=== PATIENT | male | born 1930 | race Caucasian/White ===

== ENCOUNTER 2018-06-06 17:55 | Inpatient (IN) | payer MEDICARE, OTHER, SELFPAY ==
[~2018-06-06] VITALS: Ht 180.3 cm; Wt 76.0 kg
[2018-06-06] MEDS ORDERED: ATOR1TAB19 PO (18:28)
[2018-06-06] MEDS ORDERED: SYMB16INH INH (18:28)
[2018-06-06] MEDS ORDERED: CEPH500C PO (18:28)
[2018-06-06] MEDS ORDERED: CEPH250T PO (18:28)
[2018-06-06] MEDS ORDERED: ASPI1TAB PO (18:28)
[2018-06-06] MEDS ORDERED: MELO15TA28 PO (18:39)
[2018-06-06] MEDS ORDERED: METO1TAB7 PO (18:39)
[2018-06-06] MEDS ORDERED: PRED5TA PO (18:39)
[2018-06-06] MEDS ORDERED: SAVA1TAB5 PO (18:39)
[2018-06-06] MEDS ORDERED: FURO20TA2 PO (18:39)
[2018-06-06] MEDS ORDERED: FLOM0.4C39 PO (18:39)
[2018-06-06] MEDS ORDERED: SPIR1CAP INH (18:39)
[2018-06-06] MEDS ORDERED: METH2.5T48 PO (18:39)
[2018-06-06] MEDS ORDERED: OMEP20CA3 PO (18:39)
[2018-06-06] MEDS ORDERED: LEVO500T3 PO (18:39)
[2018-06-06] MEDS ORDERED: LISI-538 PO (18:39)
[2018-06-06] MEDS ORDERED: NUTRLIQ PO (18:39)
[2018-06-06] MEDS ORDERED: HYDR200T3 PO (18:39)
[2018-06-06] MEDS ORDERED: GUAI20TA PO (18:39)
[2018-06-06] MEDS ORDERED: LORA-243 PO (18:39)
[2018-06-06 19:46] LABS: BASO # 0.1 10^3/uL (0.0-0.2); BASO % 0.9 % (0.0-1.0); EOS # 0.3 10^3/uL (0.0-0.50); EOS % 3.3 % (0.0-3.0); HEMOGLOBIN 9.3 g/dl (13.5-17.5); LYMPH # 1.2 10^3/uL (1.5-4.5); LYMPH % 12.4 % (24.0-44.0); MEAN CORPUSCULAR HEMOGLOBIN 28.8 pg (27.0-33.0); MEAN CORPUSCULAR HGB CONC 32.1 g/dl (32.0-36.5); MEAN CORPUSCULAR VOLUME 89.8 fl (80.0-96.0); MONO # 1.1 10^3/uL (0.0-0.8); MONO % 11.2 % (0.0-5.0); NEUTROPHILS # 6.9 10^3/uL (1.8-7.7); NEUTROPHILS % 70.5 % (36.0-66.0); PLATELET COUNT, AUTOMATED 204 10^3/uL (150-450); RED BLOOD COUNT 3.23 10^6/uL (4.30-6.10); WHITE BLOOD COUNT 9.8 10^3/uL (4.0-10.0)
[2018-06-06 20:00] LABS: BLOOD UREA NITROGEN 28 MG/DL (7-18); CARBON DIOXIDE LEVEL 26 MEQ/L (21-32); CHLORIDE LEVEL 107 MEQ/L (98-107); CK-MB VALUE MASS < 1.0 NG/ML (<3.6); CPK CREATINE PHOSPHOKINASE 22 U/L (39-308); CREATININE FOR GFR 1.36 MG/DL (0.70-1.30); FREE T4 1.16 NG/DL (0.76-1.46); GLOMERULAR FILTRATION RATE 52.8 (>35); GLUCOSE, FASTING 116 MG/DL (70-100); MAGNESIUM LEVEL 1.6 MG/DL (1.8-2.4); MB/CK RELATIVE INDEX 4.55 (< OR =4); POTASSIUM SERUM 3.7 MEQ/L (3.5-5.1); SODIUM LEVEL 141 MEQ/L (136-145); TROPONIN I 0.02 NG/ML (< 0.10)
--- NOTE | 2018-06-06 20:11 | REP ---
Chest two views HISTORY: Syncope Comparison: None Patchy density is present in the right lower lobe consistent with atelectasis or infiltrate. Linear densities are present in the left lower lobe consistent with scarring. The heart is normal in size. The pulmonary vasculature is normal in appearance. The bony structure is intact. IMPRESSION: Right lower lobe atelectasis or infiltrate. Electronically Signed by Jaren Burgess MD 06/06/2018 08:03 P
[2018-06-06] MEDS ORDERED: PIPERACILLIN/TAZOBACTAM SOD 3.375 GM in D5W MINI-BAG PLUS 50 ML IV ONE (20:30)
[2018-06-06] MEDS ORDERED: PANTOPRAZOLE 40MG INJ (PROTONIX) (C9113) IV ONE (20:30)
[2018-06-06] MEDS ORDERED: NS 1,000 ML IV ONE (20:30)
[2018-06-06] MEDS ORDERED: VANCOMYCIN HCL 1,000 MG, VIAL MATE ADAPTER 1 EACH in D5W 250 ML IV ONE (20:30)
[2018-06-06 20:32] LABS: INR 1.93; PARTIAL THROMBOPLASTIN TIME 36.2 SECONDS (25.4-37.6); PROTHROMBIN TIME 22.4 SECONDS (12.1-14.4)
[2018-06-06] MEDS ORDERED: DOCU100C16 PO (21:17)
[2018-06-06] MEDS ORDERED: VENTAER INH (21:17)
[2018-06-06] MEDS ORDERED: ENSULIQ9 PO (21:17)
[2018-06-06] MEDS ORDERED: ASPI81TAEC PO (21:17)
[2018-06-06] MEDS ORDERED: guaiFENesin 200 MG TAB PO PRN (21:45)
[2018-06-06] MEDS ORDERED: PILL CRUSHER/CUTTER 1 EACH XX PRN (22:00)
[2018-06-06] MEDS: NS 1,000 ML IV SCH (22:31)
--- NOTE | 2018-06-06 23:43 | HPEPDOC ---
[facility] Medical History & Physical Date of Admission Jun 06, 2018 Other Provider Dictating/admitting: Dr. Askew Attending Physician: MARIANO INMAN MD History and Physical CHIEF COMPLAINT: Near syncope/fall 1 day HISTORY OF PRESENT ILLNESS: Patient is an 88-year-old man with history significant for hypertension, hyperlipidemia, COPD, GERD, rheumatoid arthritis on methotrexate and Plaquenil, recently diagnosed PE on anticoagulation. Patient reports being in his usual state of health until sometime today, according to him, he felt dizzy and he noticed that while he was walking with his cane, he fell. He denied any loss of consciousness. He was able to pick himself up, not activated EMS. Patient follows [facility] in [place]. He was recently diagnosed off for pneumonia and finished his last dose of antibiotics yesterday. He also reports that at that admission a week ago in [place]. He was diagnosed with PE and started on anticoagulation. He denies any fever or chills. No chest pain or palpitations. No shortness of breath. No cough. He denies any change in his bowel or urinary habits. He denies noticing any dark tarry stools. Patient was evaluated in the emergency room with guaiac positive stool. Hemoglobin 9.3 but no baseline to compare with. Hospitalist was called for further evaluation and possibility of admitting patient. PAST MEDICAL HISTORY: Per HPI PAST SURGICAL HISTORY: SOCIAL HISTORY: This with girlfriend. Denies smoking, illicit drug use or alcohol use. FAMILY HISTORY: Father: from complications of lung cancer Mother: from old age at age 100 ALLERGIES: Please see below. REVIEW OF SYSTEMS: 12 point review of systems negative other than that described in the body of HPI. HOME MEDICATIONS: Please see below. PHYSICAL EXAMINATION: GENERAL APPEARANCE: Elderly man, lying calmly in bed, not in any apparent distress. He is not pale, anicteric and afebrile HEENT: Atraumatic. Neck: Supple. LUNGS: Clear to auscultation bilaterally. CARDIOVASCULAR: S1 and 2 heard, no murmurs, rubs or gallops. ABDOMEN: Obese, soft, not tender, not distended. Bowel sounds normoactive. MUSCULOSKELETAL: Apparently within normal limits. EXTREMITIES: No pedal edema, 2+ bilateral pedal pulses noted. NEUROLOGICAL: Awake, alert, oriented 3. PSYCHIATRIC: Normal affect LABORATORY DATA: See below. IMAGING: Chest x-ray: Right lower lobe atelectasis or infiltrate. EKG: Normal sinus rhythm. MICROBIOLOGY: Please see below. ASSESSMENT: 88-year-old man with above-mentioned comorbid history comes in with near syncope and fall, found on evaluation with guaiac positive stool and hemoglobin 9.3 with no baseline. DIAGNOSES: 1. Near syncope. 2. GI bleed . PLAN: 1. I will admit patient to the PCU under care of Dr. Inman 2. Near syncope. Patient evaluated as orthostatic. Will continue IV normal saline to run at 100 mils per hour. Reevaluate patient in the morning. Hold BP medications for now. If systolic BP is less than 110 mmHg. 3. GI bleed. Continue hematocrit monitoring every 12 hours, GI consult placed, patient made nothing by mouth for now. Anticoagulation held. 4. IV pantoprazole 40 mg every 12 hours. 5. DVT prophylaxis, TEDs. 6. Further management to be per patient's clinical course. 7. Anticipate resumption of outpatient medications as soon as reconciled and as soon as patient can tolerate by mouth. 8. Will hold BP medications if systolic blood pressure is less than 110 mmHg. . Vital Signs Vital Signs Date Time Temp Pulse Resp B/P (MAP) Pulse Ox O2 Delivery O2 Flow Rate FiO2 06/06/18 21:30 67 97 06/06/18 21:15 18 06/06/18 20:10 91/50 (64) 86/41 (56) 110/51 (70) 06/06/18 18:11 Room Air 06/06/18 17:59 97.5 4.0 Laboratory Data Labs 24H Laboratory Tests 2 06/06/18 18:12: Immature Granulocyte % (Auto) 1.7, White Blood Count 9.8, Red Blood Count 3.23L, Hemoglobin 9.3L, Hematocrit 29.0L, Mean Corpuscular Volume 89.8, Mean Corpuscular Hemoglobin 28.8, Mean Corpuscular Hemoglobin Concent 32.1, Red Cell Distribution Width 15.5H, Platelet Count 204, Neutrophils (%) (Auto) 70.5H, Lymphocytes (%) (Auto) 12.4L, Monocytes (%) (Auto) 11.2H, Eosinophils (%) (Auto) 3.3H, Basophils (%) (Auto) 0.9, Neutrophils # (Auto) 6.9, Lymphocytes # (Auto) 1.2L, Monocytes # (Auto) 1.1H, Eosinophils # (Auto) 0.3, Basophils # (Auto) 0.1, Nucleated Red Blood Cells % (auto) 0.0, Anion Gap 8, Glomerular Filtration Rate 52.8, Blood Urea Nitrogen 28H, Creatinine 1.36H, Sodium Level 141, Potassium Level 3.7, Chloride Level 107, Carbon Dioxide Level 26, Calcium Level 7.0L, Total Creatine Kinase 22L, Magnesium Level 1.6L, Creatine Kinase MB < 1.0, Creatine Kinase MB Relative Index 4.55H, Troponin I 0.02, Thyroid Stimulating Hormone (TSH) 3.300, Free Thyroxine 1.16 06/06/18 20:17: Prothrombin Time 22.4H, Prothromb Time International Ratio 1.93, Activated Partial Thromboplast Time 36.2 CBC/BMP Laboratory Tests 06/06/18 18:12 Red Blood Count 3.23 L, Mean Corpuscular Volume 89.8, Mean Corpuscular Hemoglobin 28.8, Mean Corpuscular Hemoglobin Concent 32.1, Red Cell Distribution Width 15.5 H, Neutrophils (%) (Auto) 70.5 H, Lymphocytes (%) (Auto) 12.4 L, Monocytes (%) (Auto) 11.2 H, Eosinophils (%) (Auto) 3.3 H, Basophils (%) (Auto) 0.9, Neutrophils # (Auto) 6.9, Lymphocytes # (Auto) 1.2 L, Monocytes # (Auto) 1.1 H, Eosinophils # (Auto) 0.3, Basophils # (Auto) 0.1, Calcium Level 7.0 L, Total Creatine Kinase 22 L Home Medications Scheduled (Ensure Plus) 1 Liq Liq, 1 LIQ PO BID Aspirin (Aspirin EC) 81 Mg Tabec, 81 MG PO DAILY Atorvastatin Calcium (Atorvastatin Calcium) 10 Mg Tab, 5 MG PO QHS Budesonide/Formoterol (Symbicort 160-4.5 Mcg/Act) 60 Puff/Inhaler Aers, 2 PUFF INH BID Docusate Sodium (Docusate Sodium) 100 Mg Cap, 100 MG PO BID Edoxaban Tosylate Monohydrate (Savaysa) 60 Mg Tab, 60 MG PO DAILY Furosemide (Furosemide) 20 Mg Tab, 20 MG PO DAILY Hydroxychloroquine Sulfate (Hydroxychloroquine Sulfat) 200 Mg Tab, 200 MG PO BID Lisinopril (Lisinopril) 20 Mg Tab, 10 MG PO DAILY Loratadine (Loratadine) 10 Mg Tab, 10 MG PO DAILY Meloxicam (Meloxicam) 15 Mg Tab, 15 MG PO DAILY Methotrexate (Methotrexate) 2.5 Mg Tab, 12.5 MG PO 1XWK TAKES ON SATURDAYS AT DINNERTIME Metoprolol Succinate (Metoprolol Succinate ER) 50 Mg Tab, 25 MG PO DAILY Omeprazole (Omeprazole) 20 Mg Cap, 20 MG PO DAILY Prednisone (Prednisone) 5 Mg Tab, 5 MG PO DAILY Tamsulosin Hydrochloride (Flomax) 0.4 Mg Cap, 0.4 MG PO QHS Tiotropium Larose Monohydrate (Spiriva Handihaler) 18 Mcg Cap, 18 MCG INH DAILY Scheduled PRN Albuterol Sulfate (Ventolin Hfa) 108 Mcg/Act Aer, 2 PUFFS INH Q4H PRN for SHORTNESS OF BREATH Guaifenesin (Guaifenesin) 200 Mg Tab, 200 MG PO Q4H PRN for COUGH Allergies Coded Allergies: No Known Allergies (Unverified , 06/06/18) VICKI ASKEW MD Jun 06, 2018 23:12
[2018-06-07] VITALS (8 sets, daily range): BP systolic 105–168; BP diastolic 56–81
[2018-06-07 05:55] LABS: HEMATOCRIT 28.3 % (42.0-52.0); HEMOGLOBIN 9.1 g/dl (13.5-17.5)
[2018-06-07 06:19] LABS: BLOOD UREA NITROGEN 22 MG/DL (7-18); CALCIUM LEVEL 7.3 MG/DL (8.8-10.2); CARBON DIOXIDE LEVEL 24 MEQ/L (21-32); CHLORIDE LEVEL 109 MEQ/L (98-107); CREATININE FOR GFR 0.95 MG/DL (0.70-1.30); GLOMERULAR FILTRATION RATE > 60.0 (>35); GLUCOSE, FASTING 78 MG/DL (70-100); POTASSIUM SERUM 3.9 MEQ/L (3.5-5.1); SODIUM LEVEL 141 MEQ/L (136-145)
[2018-06-07] MEDS: NS 1,000 ML IV SCH ×2 (07:45→17:14)
[2018-06-07] MEDS: IPRATROPIUM 0.5MG/ALBUTEROL 2.5MG INH SOL UD 3ML (DUONEB)(J7620) NEB PRN (08:07)
[2018-06-07] MEDS: SYMBICORT 160/4.5MCG INHALER 6GM INH SCH ×2 (08:07→20:43)
[2018-06-07] MEDS: LISINOPRIL 20 MG TAB PO SCH (09:21)
[2018-06-07] MEDS: HYDROXYCHLOROQUINE 200 MG TAB PO SCH ×2 (09:22→20:03)
[2018-06-07] MEDS: ASPIRIN 81 MG ENTERIC TAB PO SCH (09:22)
[2018-06-07] MEDS: METOPROLOL SUCC (TopROL XL) 50MG **XL** TAB PO SCH (09:22)
[2018-06-07] MEDS: predniSONE 5 MG TAB PO SCH (09:23)
[2018-06-07] MEDS: PANTOPRAZOLE 40MG INJ (PROTONIX) (C9113) IV SCH ×2 (09:23→20:04)
[2018-06-07] MEDS: MELOXICAM (MOBIC) 7.5 MG TAB PO SCH (09:23)
[2018-06-07] MEDS: FUROSEMIDE 20 MG TAB PO SCH (09:23)
[2018-06-07] MEDS: LORATADINE 10 MG TAB PO SCH (09:23)
--- NOTE | 2018-06-07 12:25 | IPNPDOC ---
Subjective Date Seen The patient was seen on 06/07/18. Subjective Chief Complaint/HPI Patient seen and examined at the bedside. Denies any acute complaints of lightheadedness, dizziness, chest pain, palpitations this morning. Objective Physical Examination General Exam: Positive: Alert, Cooperative, No Acute Distress ENT Exam: Positive: Atraumatic, Mucous membr. moist/pink Neck Exam: Negative: JVD Chest Exam: Positive: Diminished Heart Exam: Positive: Rate Normal, Normal S1, Normal S2 Abdomen Exam: Positive: Soft; Negative: Tenderness Extremity Exam: Negative: Tenderness, Swelling Assessment /Plan Plan/VTE VTE Prophylaxis Ordered?: Yes Plan Near Syncopal Episode possibly 2/2 GI Bleed Patient's Hgb 9.3 with guaiac postive study in the ER Hgb has remained stable this AM Unknown baseline--order placed to obtain records from [facility] We will cont to monitor vitals, H&H GI consulted in the ER PT ordered for functional optimization We will cont to monitor History of Pulmonary Embolism AC held 2/2 possible GI Bleed We will cont to monitor at this time Hx of COPD on 4L of Oxygen at Baseline Cont supplemental oxygen, inhaler therapy, and prn nebs as ordered Hypertension Continue Lasix, lisinopril, metoprolol, Dyslipidemia Continue statin GERD Continue PPI Rheumatoid arthritis Continue plaquenil, prednisone BPH Continue Flomax DVT prophylaxis SCDs/TEDs VS, I&O, 24H, Fishbone Vital Signs/I&O Vital Signs Date Time Temp Pulse Resp B/P (MAP) Pulse Ox O2 Delivery O2 Flow Rate FiO2 06/07/18 11:46 99.7 86 18 168/69 (102) 95 Nasal Cannula 2.0 I&O- Last 24 Hours up to 6 AM 06/07/18 06:00 Intake Total 200 ml Output Total 400 ml Balance -200 ml Laboratory Data 24H LABS Laboratory Tests 2 06/06/18 18:12: Immature Granulocyte % (Auto) 1.7, White Blood Count 9.8, Red Blood Count 3.23L, Hemoglobin 9.3L, Hematocrit 29.0L, Mean Corpuscular Volume 89.8, Mean Corpuscular Hemoglobin 28.8, Mean Corpuscular Hemoglobin Concent 32.1, Red Cell Distribution Width 15.5H, Platelet Count 204, Neutrophils (%) (Auto) 70.5H, Lymphocytes (%) (Auto) 12.4L, Monocytes (%) (Auto) 11.2H, Eosinophils (%) (Auto) 3.3H, Basophils (%) (Auto) 0.9, Neutrophils # (Auto) 6.9, Lymphocytes # (Auto) 1.2L, Monocytes # (Auto) 1.1H, Eosinophils # (Auto) 0.3, Basophils # (Auto) 0.1, Nucleated Red Blood Cells % (auto) 0.0, Anion Gap 8, Glomerular Filtration Rate 52.8, Blood Urea Nitrogen 28H, Creatinine 1.36H, Sodium Level 141, Potassium Level 3.7, Chloride Level 107, Carbon Dioxide Level 26, Calcium Level 7.0L, Total Creatine Kinase 22L, Magnesium Level 1.6L, Creatine Kinase MB < 1.0, Creatine Kinase MB Relative Index 4.55H, Troponin I 0.02, Thyroid Stimulating Hormone (TSH) 3.300, Free Thyroxine 1.16 06/06/18 20:17: Prothrombin Time 22.4H, Prothromb Time International Ratio 1.93, Activated Partial Thromboplast Time 36.2 06/07/18 05:43: Anion Gap 8, Glomerular Filtration Rate > 60.0, Blood Urea Nitrogen 22H, Creatinine 0.95, Sodium Level 141, Potassium Level 3.9, Chloride Level 109H, Carbon Dioxide Level 24, Calcium Level 7.3L CBC/BMP Laboratory Tests 06/06/18 18:12 Red Blood Count 3.23 L, Mean Corpuscular Volume 89.8, Mean Corpuscular Hemoglobin 28.8, Mean Corpuscular Hemoglobin Concent 32.1, Red Cell Distribution Width 15.5 H, Neutrophils (%) (Auto) 70.5 H, Lymphocytes (%) (Auto) 12.4 L, Monocytes (%) (Auto) 11.2 H, Eosinophils (%) (Auto) 3.3 H, Basophils (%) (Auto) 0.9, Neutrophils # (Auto) 6.9, Lymphocytes # (Auto) 1.2 L, Monocytes # (Auto) 1.1 H, Eosinophils # (Auto) 0.3, Basophils # (Auto) 0.1, Calcium Level 7.0 L, Total Creatine Kinase 22 L 06/07/18 05:43 Calcium Level 7.3 L MARIANO INMAN MD Jun 07, 2018 12:25
[2018-06-07] MEDS ORDERED: GOLYTELY SOLN 4000 ML BTL PO ONE (16:15)
[2018-06-07] MEDS ORDERED: MOM 30ML SUSPENSION UDC PO ONE (16:15)
[2018-06-07] MEDS ORDERED: PHYTONADIONE 5 MG TAB PO ONE (16:30)
[2018-06-07 18:26] LABS: HEMATOCRIT 28.7 % (42.0-52.0); HEMOGLOBIN 9.3 g/dl (13.5-17.5)
--- NOTE | 2018-06-07 19:31 | ECHO ---
DATE OF PROCEDURE: 06/07/2018 REFERRING PHYSICIAN: Dr. Lucrecia Askew INDICATION: Syncope. Height 180 cm, weight 87 kg. DIMENSIONS: IVS: 1.2 LV: 5.4 LVPW: 1.2 LA: 2.6 Aorta: 3.4 IVC: 1.2 Mitral E wave velocity: 51 A wave: 69 E prime septal: 5.7 E prime lateral: 8.0 FINDINGS: The study is of difficult technical quality with rather limited visualization. The patient is in sinus rhythm. Left ventricle is of normal size. I estimate mild left ventricular systolic dysfunction with ejection fraction (EF) around 45-50%. This is based on very limited views. The right ventricle appears grossly normal. Both atria also appear grossly normal. Aortic valve is poorly seen. It is trileaflet. It is heavily calcified, and there is some restriction of leaflet mobility. Based on 2D imaging, I assume mild aortic stenosis. There are also mild degenerative abnormalities of mitral valve with mitral annular calcifications. Mobility of leaflets is preserved. Tricuspid valve appears normal. Pulmonic valve was not well seen. No significant pericardial effusion is noted. Inferior vena cava is of relatively small caliber indicative of normal or low central venous pressure. Aortic root is normal. Aortic arch and abdominal aorta were not well seen. Doppler interrogation of aortic valve reveals trace insufficiency and mild stenosis with mean gradient only 9 mmHg. There is also trace mitral and tricuspid insufficiency. Calculated pulmonary artery pressure is within normal limits. Mitral inflow pattern and tissue Doppler imaging of mitral annulus revealed grade 1 diastolic dysfunction. CONCLUSIONS: 1. Study is of difficult technical quality. 2. Normal left ventricular (LV) size with probably mild global LV systolic dysfunction and grade 1 diastolic dysfunction. Mild left ventricular hypertrophy (LVH). 3. Mild aortic stenosis. 4. Trace mitral and tricuspid insufficiency. 5. Normal central venous pressure and likely normal pulmonary artery pressure. COMMENT: Subacute bacterial endocarditis (SBE) prophylaxis is not recommended. It is not likely that aortic stenosis was the cause of the patient's syncopal event. [employer]
[2018-06-07] MEDS: ATORVASTATIN 10 MG TAB PO SCH (20:03)
[2018-06-07] MEDS: TAMSULOSIN 0.4 MG CAP PO SCH (20:03)
[2018-06-08] VITALS (15 sets, daily range): BP systolic 98–170; BP diastolic 47–77; O2SAT 92–97
[2018-06-08] MEDS ORDERED: FUROSEMIDE 20 MG/2 ML VIAL (J1940) IV ONE (04:15)
[2018-06-08] MEDS ORDERED: GOLYTELY SOLN 4000 ML BTL PO ONE (05:00)
[2018-06-08 05:24] LABS: INR 1.02; PROTHROMBIN TIME 13.5 SECONDS (12.1-14.4)
[2018-06-08] MEDS: SYMBICORT 160/4.5MCG INHALER 6GM INH SCH ×2 (07:42→20:14)
[2018-06-08] MEDS ORDERED: MAGNESIUM CITRATE 300 ML BTL PO ONE (08:45)
[2018-06-08 09:08] LABS: HEMATOCRIT 29.2 % (42.0-52.0); HEMOGLOBIN 9.6 g/dl (13.5-17.5); MEAN CORPUSCULAR HEMOGLOBIN 28.8 pg (27.0-33.0); MEAN CORPUSCULAR HGB CONC 32.9 g/dl (32.0-36.5); MEAN CORPUSCULAR VOLUME 87.7 fl (80.0-96.0); PLATELET COUNT, AUTOMATED 166 10^3/uL (150-450); RED BLOOD COUNT 3.33 10^6/uL (4.30-6.10); WHITE BLOOD COUNT 9.3 10^3/uL (4.0-10.0)
[2018-06-08] MEDS: PANTOPRAZOLE 40MG INJ (PROTONIX) (C9113) IV SCH ×2 (09:08→20:03)
[2018-06-08] MEDS: HYDROXYCHLOROQUINE 200 MG TAB PO SCH ×2 (09:08→20:03)
[2018-06-08] MEDS: ASPIRIN 81 MG ENTERIC TAB PO SCH (09:09)
[2018-06-08] MEDS: LORATADINE 10 MG TAB PO SCH (09:09)
[2018-06-08] MEDS: predniSONE 5 MG TAB PO SCH (09:09)
[2018-06-08] MEDS: FUROSEMIDE 20 MG TAB PO SCH (09:09)
[2018-06-08] MEDS: MELOXICAM (MOBIC) 7.5 MG TAB PO SCH (09:09)
[2018-06-08] MEDS: LISINOPRIL 20 MG TAB PO SCH (09:10)
[2018-06-08] MEDS: METOPROLOL SUCC (TopROL XL) 50MG **XL** TAB PO SCH (09:10)
[2018-06-08 09:24] LABS: BLOOD UREA NITROGEN 12 MG/DL (7-18); CALCIUM LEVEL 7.7 MG/DL (8.8-10.2); CARBON DIOXIDE LEVEL 25 MEQ/L (21-32); CHLORIDE LEVEL 103 MEQ/L (98-107); CREATININE FOR GFR 0.84 MG/DL (0.70-1.30); GLOMERULAR FILTRATION RATE > 60.0 (>35); GLUCOSE, FASTING 81 MG/DL (70-100); POTASSIUM SERUM 3.5 MEQ/L (3.5-5.1); SODIUM LEVEL 137 MEQ/L (136-145)
--- NOTE | 2018-06-08 09:59 | ECGEPIP ---
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
[2018-06-08 10:32] LABS: MAGNESIUM LEVEL 1.3 MG/DL (1.8-2.4)
[2018-06-08] MEDS: METOPROLOL 5 MG/5 ML VIAL IV SCH ×2 (10:39→10:49)
[2018-06-08] MEDS: KCL 10MEQ/100ML SWI (KRUN) 10 MEQ in APPROPRIATE DILUENT 1 EA IV SCH ×3 (10:52→18:43)
[2018-06-08] MEDS: MAG SULF 1GM/100ML (MAG RUN) 1 GM in APPROPRIATE DILUENT 1 EA IV SCH ×3 (11:58→17:35)
--- NOTE | 2018-06-08 13:42 | IPNPDOC ---
Subjective Date Seen The patient was seen on 06/08/18. Subjective Chief Complaint/HPI Patient seen and examined at the bedside. He was noted to be in atrial fibrillation with RVR this morning. Unclear whether this patient has a history of this, as there are no prior records available. We are awaiting records from [facility]. The patient denies any complaints of chest pain, palpitations at the bedside and is otherwise asymptomatic. He is scheduled for a colonoscopy with GI this afternoon. We will restart him on anticoagulation if there are no contraindications. The patient's hemoglobin has remained stable. Objective Physical Examination General Exam: Positive: Alert, Cooperative, No Acute Distress ENT Exam: Positive: Atraumatic, Mucous membr. moist/pink Neck Exam: Negative: JVD Chest Exam: Positive: Diminished Heart Exam: Positive: Tachycardic, Normal S1, Normal S2 Telemetry: Positive: Atrial fibrillation Abdomen Exam: Positive: Soft; Negative: Tenderness Extremity Exam: Negative: Tenderness, Swelling Assessment /Plan Plan/VTE VTE Prophylaxis Ordered?: Yes Plan Near Syncopal Episode possibly 2/2 GI Bleed Patient's Hgb 9.3 with guaiac positive study in the ER Hgb has remained stable this AM Unknown baseline--order placed to obtain records from [facility] We will cont to monitor vitals, H&H PT ordered for functional optimization GI on board for Colonoscopy this afternoon We will cont to monitor New-Onset Atrial Fibrillation? Unclear whether this patient has a history of this, as there are no prior records available. We are awaiting records from [facility]. The patient denies any complaints of chest pain, palpitations at the bedside and is otherwise asymptomatic. He is scheduled for a colonoscopy with GI this afternoon. We will restart him on anticoagulation if there are no contraindications. The patient's hemoglobin has remained stable. Cont Metoprolol History of Pulmonary Embolism AC held 2/2 possible GI Bleed We will cont to monitor at this time Hx of COPD on 4L of Oxygen at Baseline Cont supplemental oxygen, inhaler therapy, and prn nebs as ordered Hypertension Continue Lasix, lisinopril, metoprolol, Dyslipidemia Continue statin GERD Continue PPI Rheumatoid arthritis Continue plaquenil, prednisone BPH Continue Flomax DVT prophylaxis SCDs/TEDs VS, I&O, 24H, Fishbone Vital Signs/I&O Vital Signs Date Time Temp Pulse Resp B/P (MAP) Pulse Ox O2 Delivery O2 Flow Rate FiO2 06/08/18 12:00 98.6 97 17 119/52 (74) 94 Nasal Cannula 4.0 I&O- Last 24 Hours up to 6 AM 06/08/18 06:00 Intake Total 3122 ml Output Total 3200 ml Balance -78 ml Laboratory Data 24H LABS Laboratory Tests 2 06/08/18 04:26: Prothrombin Time 13.5, Prothromb Time International Ratio 1.02 06/08/18 08:52: Nucleated Red Blood Cells % (auto) 0.0, Anion Gap 9, Glomerular Filtration Rate > 60.0, Blood Urea Nitrogen 12, Creatinine 0.84, Sodium Level 137, Potassium L evel 3.5, Chloride Level 103, Carbon Dioxide Level 25, Calcium Level 7.7L, Magnesium Level 1.3L CBC/BMP Laboratory Tests 06/07/18 18:02 06/08/18 08:52 Red Blood Count 3.33 L, Mean Corpuscular Volume 87.7, Mean Corpuscular Hemoglobin 28.8, Mean Corpuscular Hemoglobin Concent 32.9, Red Cell Distribution Width 15.4 H, Calcium Level 7.7 L MARIANO INMAN MD Jun 08, 2018 13:42
[2018-06-08] MEDS ORDERED: PROPOFOL 200 MG/20 ML VIAL As Ordered ONE (14:46)
[2018-06-08] MEDS ORDERED: LIDOCAINE 2% INJ 100 MG/5 ML SDV (FOR ANES.) As Ordered ONE (14:46)
--- NOTE | 2018-06-08 14:59 | ROOR ---
Patient Name: Stanislaw Keene Procedure Date: 06/08/2018 2:38 PM Date of : 1930 Age: 88 Room: [facility] Gender: Male Note Status: Finalized Procedure: Upper GI endoscopy Indications: Occult blood in stool Providers: Trenton BURTON MD Referring MD: 2. Inpatient 2. Inpatient Requesting Provider: Medicines: Monitored Anesthesia Care Complications: No immediate complications. Procedure: Pre-Anesthesia Assessment: - The heart rate, respiratory rate, oxygen saturations, blood pressure, adequacy of pulmonary ventilation, and response to care were monitored throughout the procedure. The Endoscope was introduced through the mouth, and advanced to the third part of duodenum. The upper GI endoscopy was accomplished without difficulty. The patient tolerated the procedure well. Findings: A widely patent Schatzki ring was found at the gastroesophageal junction. This was biopsied with a cold forceps for histology. This was biopsied with a cold forceps for to fracture ring. The esophagus was otherwise normal. The stomach was normal. The examined duodenum was normal. Impression: - Widely patent Schatzki ring. Biopsied/fractured. - Normal esophagus. - Normal stomach. - Normal examined duodenum. Recommendation: - Perform a colonoscopy. Trenton Burton MD Trenton BURTON MD 06/08/2018 2:59:12 PM This report has been signed electronically. Number of Addenda: 0 Note Initiated On: 06/08/2018 2:38 PM Estimated Blood Loss: Estimated blood loss: none.
[2018-06-08] MEDS ORDERED: PHENYLephrine HCL 500 MCG/5 ML (100MCG/ML) SYRINGE (J2370) As Ordered ONE (15:01)
[2018-06-08] MEDS ORDERED: ePHEDrine SULFATE 25 MG/5 ML(5MG/ML) SYRINGE As Ordered ONE (15:05)
--- NOTE | 2018-06-08 15:18 | ROOR ---
Patient Name: Stanislaw Keene Procedure Date: 06/08/2018 2:39 PM Date of : 1930 Age: 88 Room: [facility] Gender: Male Note Status: Finalized Procedure: Colonoscopy Indications: Heme positive stool, Exclusion of colorectal cancer Providers: Trenton BURTON MD Referring MD: 2. Inpatient 2. Inpatient Requesting Provider: Medicines: Monitored Anesthesia Care Complications: No immediate complications. Procedure: Pre-Anesthesia Assessment: - The heart rate, respiratory rate, oxygen saturations, blood pressure, adequacy of pulmonary ventilation, and response to care were monitored throughout the procedure. The Colonoscope was introduced through the anus and advanced to 10 cm into the ileum. The colonoscopy was performed without difficulty. The patient tolerated the procedure well. The quality of the bowel preparation was good. Findings: The perianal and digital rectal examinations were normal. Mild sigmoid diverticulosis and moderate internal hemorrhoids. The entire examined colon appeared normal on direct and retroflexion views. The terminal ileum appeared normal. Impression: - Mild sigmoid diverticulosis and moderate internal hemorrhoids. - The entire examined colon is normal on direct and retroflexion views. - The examined portion of the ileum was normal. - No specimens collected. Recommendation: - Resume regular diet. - [facility]. Trenton Burton MD Trenton BURTON MD 06/08/2018 3:18:15 PM This report has been signed electronically. Number of Addenda: 0 Note Initiated On: 06/08/2018 2:39 PM Estimated Blood Loss: Estimated blood loss: none.
[2018-06-08] MEDS ORDERED: MAGNESIUM SULFATE 1 GM/100 ML D5W BAG (10MG/ML) (J3475) As Ordered ONE (17:32)
[2018-06-08] MEDS: FUROSEMIDE 20 MG/2 ML VIAL (J1940) IV ONE ×2 (18:22→18:51)
[2018-06-08] MEDS ORDERED: KCL 10MEQ IN STERILE WATER 100ML As Ordered ONE (18:42)
[2018-06-08] MEDS: TAMSULOSIN 0.4 MG CAP PO SCH (20:03)
[2018-06-08] MEDS: ATORVASTATIN 10 MG TAB PO SCH (20:03)
[2018-06-09] VITALS (23 sets, daily range): BP systolic 81–136; BP diastolic 41–61; O2SAT 89–99
[2018-06-09] MEDS: IPRATROPIUM 0.5MG/ALBUTEROL 2.5MG INH SOL UD 3ML (DUONEB)(J7620) NEB PRN ×2 (02:44→16:51)
[2018-06-09 05:26] LABS: HEMOGLOBIN 9.2 g/dl (13.5-17.5); MEAN CORPUSCULAR HEMOGLOBIN 28.3 pg (27.0-33.0); MEAN CORPUSCULAR HGB CONC 32.9 g/dl (32.0-36.5); MEAN CORPUSCULAR VOLUME 86.2 fl (80.0-96.0); PLATELET COUNT, AUTOMATED 152 10^3/uL (150-450); RED BLOOD COUNT 3.25 10^6/uL (4.30-6.10); WHITE BLOOD COUNT 11.5 10^3/uL (4.0-10.0)
[2018-06-09 05:46] LABS: BLOOD UREA NITROGEN 16 MG/DL (7-18); CALCIUM LEVEL 7.5 MG/DL (8.8-10.2); CARBON DIOXIDE LEVEL 24 MEQ/L (21-32); CHLORIDE LEVEL 106 MEQ/L (98-107); CREATININE FOR GFR 0.89 MG/DL (0.70-1.30); GLOMERULAR FILTRATION RATE > 60.0 (>35); GLUCOSE, FASTING 81 MG/DL (70-100); POTASSIUM SERUM 3.9 MEQ/L (3.5-5.1); SODIUM LEVEL 139 MEQ/L (136-145)
[2018-06-09] MEDS: ACETAMINOPHEN TAB 650MG DOSE (2X325MG) PO PRN (06:39)
[2018-06-09] MEDS: SYMBICORT 160/4.5MCG INHALER 6GM INH SCH ×2 (07:31→21:00)
[2018-06-09] MEDS: PANTOPRAZOLE 40MG INJ (PROTONIX) (C9113) IV SCH ×2 (08:25→21:30)
[2018-06-09] MEDS: LISINOPRIL 20 MG TAB PO SCH (08:26)
[2018-06-09] MEDS: METOPROLOL SUCC (TopROL XL) 50MG **XL** TAB PO SCH (08:26)
[2018-06-09] MEDS: HYDROXYCHLOROQUINE 200 MG TAB PO SCH ×2 (08:27→21:27)
[2018-06-09] MEDS: FUROSEMIDE 20 MG TAB PO SCH (08:27)
[2018-06-09] MEDS: ASPIRIN 81 MG ENTERIC TAB PO SCH (08:27)
[2018-06-09] MEDS: predniSONE 5 MG TAB PO SCH (08:27)
[2018-06-09] MEDS: MELOXICAM (MOBIC) 7.5 MG TAB PO SCH (08:27)
[2018-06-09] MEDS: LORATADINE 10 MG TAB PO SCH (08:27)
[2018-06-09] MEDS: cefTRIAXone SOD 1 GM in D5W MINI-BAG PLUS 50 ML IV SCH (10:31)
[2018-06-09] MEDS: ENOXAPARIN 80 MG/0.8 ML SYRINGE (J1650) SC SCH ×2 (10:31→21:30)
--- NOTE | 2018-06-09 12:13 | REP ---
Clinical: Shortness of breath. Technique: AP and lateral. Comparison: 06/06/2018. Findings: Diffuse chronic interstitial changes are again noted. The mediastinum and cardiac silhouette are normal. Blunting of the bilateral costophrenic angles and subtle basilar opacities consistent with bibasilar atelectasis and small pleural effusions (right greater than left). No pneumothorax. Skeletal structures demonstrate osteopenia and degenerative change. Impression: Small pleural effusions and basilar atelectasis (right greater than left). Electronically Signed by Asad Arora MD 06/09/2018 12:04 P
--- NOTE | 2018-06-09 15:46 | IPNPDOC ---
Subjective Date Seen The patient was seen on 06/09/18. Subjective Chief Complaint/HPI Patient seen and examined at bedside. Patient was noted to be febrile, with an increasing white blood cell count this morning. Upon examination, the patient was also more lethargic appearing but answering questions appropriately. Infectious workup revealed possible source of infection including urinary tract infection from chronic indwelling Sam catheter. The patient has been started on empiric antibiotic therapy. Urine culture pending. Otherwise, the patient remains hemodynamically stable and denies any acute complaints at this time. An ticoagulation has been restarted as the patient's EGD and colonoscopy did not reveal any acute findings of bleed, and the patient's hemoglobin has remained stable. Objective Physical Examination General Exam: Positive: Alert, Cooperative, No Acute Distress ENT Exam: Positive: Atraumatic, Mucous membr. moist/pink Neck Exam: Negative: JVD Chest Exam: Positive: Diminished Heart Exam: Positive: Rate Normal, Normal S1, Normal S2 Telemetry: Positive: Sinus Abdomen Exam: Positive: Soft; Negative: Tenderness Extremity Exam: Negative: Tenderness, Swelling Assessment /Plan Plan/VTE VTE Prophylaxis Ordered?: Yes Plan Urinary Tract Infection 2/2 Chronic Indwelling Sam Catheter Patient noted to be febrile, with increasing WBC this morning He was also noted to be more lethargic UA noted, Urine Culture pending We will empirically treat the patient with Rocephin We will cont to monitor the patient Near Syncopal Episode likely 2/2 above, less likely ?GI Bleed Patient's Hgb 9.3 in the ER on admission, with guaiac positive study in the ER Hgb has remained stable since admission GI consulted; EGD and Colonoscopy with no acute sources of bleeding ntoed We will restart AC at this time and continue to monitor H&H's New-Onset Atrial Fibrillation? Unclear whether this patient has a history of this, as there are no prior records available. We are awaiting records from [facility]. The patient denies any complaints of chest pain, palpitations at the bedside and is otherwise asymptomatic. Patient back in NSR this AM Cont Metoprolol, anticoagulation restarted with Lovenox (We do not have Edoxaban in formulary) History of Pulmonary Embolism On Lovenox SC BID Hx of COPD on 4L of Oxygen at Baseline Cont supplemental oxygen, inhaler therapy, and prn nebs as ordered Hypertension Continue Lasix, lisinopril, metoprolol, Dyslipidemia Continue statin GERD Continue PPI Rheumatoid arthritis Continue plaquenil, prednisone BPH Continue Flomax DVT prophylaxis Lovenox SC VS, I&O, 24H, Fishbone Vital Signs/I&O Vital Signs Date Time Temp Pulse Resp B/P (MAP) Pulse Ox O2 Delivery O2 Flow Rate FiO2 06/09/18 15:00 96 Nasal Cannula 4.0 06/09/18 12:00 97.6 92 18 103/49 (67) I&O- Last 24 Hours up to 6 AM 06/09/18 06:00 Intake Total 1160 ml Output Total 950 ml Balance 210 ml Laboratory Data 24H LABS Laboratory Tests 2 06/09/18 04:50: Nucleated Red Blood Cells % (auto) 0.0, Anion Gap 9, Glomerular Filtration Rate > 60.0, Blood Urea Nitrogen 16, Creatinine 0.89, Sodium Level 139, Potassium Level 3.9, Chloride Level 106, Carbon Dioxide Level 24, Calcium Level 7.5L, Magnesium Level 2.0 06/09/18 09:40: Urine Color YELLOW, Urine Appearance HAZY, Urine pH 5.0, Urine Specific [place] 1.014, Urine Protein 1+H, Urine Glucose (UA) NEGATIVE, Urine Ketones NEGATIVE, Urine Blood 2+H, Urine Nitrite NEGATIVE, Urine Bilirubin NEGATIVE, Urine Ur obilinogen 0.2, Urine Leukocyte Esterase TRACEH, Urine WBC (Auto) 52H, Urine RBC (Auto) TNTCH, Urine Hyaline Casts (Auto) 0, Urine Bacteria (Auto) NEGATIVE, Urine Squamous Epithelial Cells 0, Urine Mucus (Auto) SMALL, Urine Yeast-Like Cells (Auto) LARGEH, Urine Sperm (Auto) CBC/BMP Laboratory Tests 06/09/18 04:50 Red Blood Count 3.25 L, Mean Corpuscular Volume 86.2, Mean Corpuscular Hemoglobin 28.3, Mean Corpuscular Hemoglobin Concent 32.9, Red Cell Distribution Width 15.5 H, Calcium Level 7.5 L Microbiology Microbiology 06/09/18 Respiratory Virus Panel (PCR) ([facility]) - Final, Complete 06/09/18 Urine Culture, Received Pending MARIANO INMAN MD Jun 09, 2018 15:46
[2018-06-09] MEDS: TAMSULOSIN 0.4 MG CAP PO SCH (21:28)
[2018-06-09] MEDS: ATORVASTATIN 10 MG TAB PO SCH (21:29)
[2018-06-10] VITALS (19 sets, daily range): BP systolic 91–152; BP diastolic 44–62; O2SAT 92–97
[2018-06-10] MEDS: IPRATROPIUM 0.5MG/ALBUTEROL 2.5MG INH SOL UD 3ML (DUONEB)(J7620) NEB PRN ×2 (02:22→08:48)
[2018-06-10] MEDS: ACETAMINOPHEN TAB 650MG DOSE (2X325MG) PO PRN (04:18)
[2018-06-10 05:42] LABS: HEMATOCRIT 26.5 % (42.0-52.0); HEMOGLOBIN 8.6 g/dl (13.5-17.5); MEAN CORPUSCULAR HEMOGLOBIN 28.3 pg (27.0-33.0); MEAN CORPUSCULAR HGB CONC 32.5 g/dl (32.0-36.5); MEAN CORPUSCULAR VOLUME 87.2 fl (80.0-96.0); PLATELET COUNT, AUTOMATED 130 10^3/uL (150-450); RED BLOOD COUNT 3.04 10^6/uL (4.30-6.10); WHITE BLOOD COUNT 8.5 10^3/uL (4.0-10.0)
[2018-06-10 06:01] LABS: BLOOD UREA NITROGEN 18 MG/DL (7-18); CALCIUM LEVEL 7.6 MG/DL (8.8-10.2); CARBON DIOXIDE LEVEL 23 MEQ/L (21-32); CHLORIDE LEVEL 106 MEQ/L (98-107); CREATININE FOR GFR 1.07 MG/DL (0.70-1.30); GLOMERULAR FILTRATION RATE > 60.0 (>35); GLUCOSE, FASTING 88 MG/DL (70-100); MAGNESIUM LEVEL 1.8 MG/DL (1.8-2.4); POTASSIUM SERUM 3.7 MEQ/L (3.5-5.1); SODIUM LEVEL 137 MEQ/L (136-145)
[2018-06-10] MEDS: SYMBICORT 160/4.5MCG INHALER 6GM INH SCH ×2 (07:32→20:30)
[2018-06-10] MEDS: LISINOPRIL 20 MG TAB PO SCH (09:00)
[2018-06-10] MEDS: METOPROLOL SUCC (TopROL XL) 50MG **XL** TAB PO SCH (09:00)
[2018-06-10] MEDS ORDERED: SODIUM CHLORIDE 0.9% 1000ML IV ONE (09:00)
[2018-06-10] MEDS: ASPIRIN 81 MG ENTERIC TAB PO SCH (09:02)
[2018-06-10] MEDS: MELOXICAM (MOBIC) 7.5 MG TAB PO SCH (09:02)
[2018-06-10] MEDS: LORATADINE 10 MG TAB PO SCH (09:02)
[2018-06-10] MEDS: FUROSEMIDE 20 MG TAB PO SCH (09:02)
[2018-06-10] MEDS: PANTOPRAZOLE 40MG INJ (PROTONIX) (C9113) IV SCH ×2 (09:03→20:15)
[2018-06-10] MEDS: cefTRIAXone SOD 1 GM in D5W MINI-BAG PLUS 50 ML IV SCH (09:03)
[2018-06-10] MEDS: ENOXAPARIN 80 MG/0.8 ML SYRINGE (J1650) SC SCH ×2 (09:03→20:14)
[2018-06-10 09:11] LABS: C REACTIVE PROTEIN QUANTITATIV 6.03 MG/DL (0.00-0.30)
[2018-06-10] MEDS ORDERED: NS 500 ML IV SCH (10:00)
[2018-06-10] MEDS: METOPROLOL 5 MG/5 ML VIAL IV SCH ×3 (10:10→10:58)
[2018-06-10] MEDS: HYDROCORTISONE 100 MG/2 ML VIAL (J1720) IV SCH ×2 (10:38→18:39)
--- NOTE | 2018-06-10 12:33 | IPNPDOC ---
Subjective Date Seen The patient was seen on 06/10/18. Subjective Chief Complaint/HPI Patient seen and examined at the bedside. He was noted to be febrile this morning and borderline hypotensive. His B/P respond to IV fluid hydration. Otherwise, the patient states that he is feeling well and denies any acute complaints. He notes that he is feeling better each day, and notes that his strength/energy level is improved Objective Physical Examination General Exam: Positive: Alert, Cooperative, No Acute Distress ENT Exam: Positive: Atraumatic, Mucous membr. moist/pink Neck Exam: Negative: JVD Chest Exam: Positive: Diminished Heart Exam: Positive: Tachycardic, Normal S1, Normal S2 Telemetry: Positive: Atrial fibrillation Abdomen Exam: Positive: Soft; Negative: Tenderness Extremity Exam: Negative: Tenderness, Swelling Psych Exam: Positive: Oriented x 3 Assessment /Plan Plan/VTE VTE Prophylaxis Ordered?: Yes Plan Urinary Tract Infection 2/2 Chronic Indwelling Sam Catheter Patient with improvement of mentation this AM Borderline hypotensive this AM-->responded to fluid resuscitation UA noted, Urine Culture notable for yeast We will empirically treat the patient with Rocephin for possible UTI, with respiratory coverage as well We will cont to monitor the patient Near Syncopal Episode likely 2/2 above, less likely ?GI Bleed Patient's Hgb 9.3 in the ER on admission, with guaiac positive study in the ER Hgb has remained stable since admission GI consulted; EGD and Colonoscopy with no acute sources of bleeding ntoed AC restarted at this time and we will continue to monitor H&H's New-Onset Atrial Fibrillation? Unclear whether this patient has a history of this, as there are no prior records available. We are awaiting records from [facility]. The patient denies any complaints of chest pain, palpitations at the bedside and is otherwise asymptomatic. Patient has been fluctuating between NSR and A-Fib on the monitor Cont Metoprolol, anticoagulation restarted with Lovenox (We do not have Edoxaban in formulary) History of Pulmonary Embolism On Lovenox SC BID Hx of COPD on 4L of Oxygen at Baseline Cont supplemental oxygen, inhaler therapy, and prn nebs as ordered Hypertension Continue Lasix, lisinopril, metoprolol Dyslipidemia Continue statin GERD Continue PPI Rheumatoid arthritis Plaquenil held 2/2 Infection Prednisone on hold, patient started on Hydrocortisone 50mg q8h due to hypotension this AM BPH Continue Flomax DVT prophylaxis Lovenox SC VS, I&O, 24H, Heather Vital Signs/I&O Vital Signs Date Time Temp Pulse Resp B/P (MAP) Pulse Ox O2 Delivery O2 Flow Rate FiO2 06/10/18 12:00 98.5 85 18 115/54 (74) 94 Nasal Cannula 4.0 I&O- Last 24 Hours up to 6 AM 06/10/18 06:00 Intake Total 350 ml Output Total 760 ml Balance -410 ml Laboratory Data 24H LABS Laboratory Tests 2 06/10/18 04:53: Nucleated Red Blood Cells % (auto) 0.0, Anion Gap 8, Glomerular Filtration Rate > 60.0, Blood Urea Nitrogen 18, Creatinine 1.07, Sodium Level 137, Potassium Level 3.7, Chloride Level 106, Carbon Dioxide Level 23, Calcium Level 7.6L, Magnesium Level 1.8, C-Reactive Protein, Quantitative 6.03H CBC/BMP Laboratory Tests 06/10/18 04:53 Red Blood Count 3.04 L, Mean Corpuscular Volume 87.2, Mean Corpuscular Hemoglobin 28.3, Mean Corpuscular Hemoglobin Concent 32.5, Red Cell Distribution Width 15.5 H, Calcium Level 7.6 L Microbiology Microbiology 06/09/18 Respiratory Virus Panel (PCR) ([facility]) - Final, Complete 06/09/18 Urine Culture - Final, Complete Yeast Like Organism MARIANO INMAN MD Jun 10, 2018 12:33
[2018-06-10] MEDS: ATORVASTATIN 10 MG TAB PO SCH (20:14)
[2018-06-10] MEDS: TAMSULOSIN 0.4 MG CAP PO SCH (20:14)
[2018-06-11] VITALS (11 sets, daily range): BP systolic 96–139; BP diastolic 49–82; O2SAT 92–97
[2018-06-11] MEDS: HYDROCORTISONE 100 MG/2 ML VIAL (J1720) IV SCH ×2 (02:51→09:23)
[2018-06-11] MEDS: IPRATROPIUM 0.5MG/ALBUTEROL 2.5MG INH SOL UD 3ML (DUONEB)(J7620) NEB PRN ×3 (04:21→13:32)
[2018-06-11 05:58] LABS: HEMATOCRIT 26.8 % (42.0-52.0); HEMOGLOBIN 8.8 g/dl (13.5-17.5); MEAN CORPUSCULAR HEMOGLOBIN 28.9 pg (27.0-33.0); MEAN CORPUSCULAR HGB CONC 32.8 g/dl (32.0-36.5); MEAN CORPUSCULAR VOLUME 88.2 fl (80.0-96.0); PLATELET COUNT, AUTOMATED 146 10^3/uL (150-450); RED BLOOD COUNT 3.04 10^6/uL (4.30-6.10); WHITE BLOOD COUNT 10.8 10^3/uL (4.0-10.0)
[2018-06-11 06:20] LABS: BLOOD UREA NITROGEN 18 MG/DL (7-18); C REACTIVE PROTEIN QUANTITATIV 6.88 MG/DL (0.00-0.30); CALCIUM LEVEL 7.7 MG/DL (8.8-10.2); CARBON DIOXIDE LEVEL 24 MEQ/L (21-32); CHLORIDE LEVEL 106 MEQ/L (98-107); CREATININE FOR GFR 0.92 MG/DL (0.70-1.30); GLOMERULAR FILTRATION RATE > 60.0 (>35); GLUCOSE, FASTING 148 MG/DL (70-100); MAGNESIUM LEVEL 1.8 MG/DL (1.8-2.4); SODIUM LEVEL 137 MEQ/L (136-145)
[2018-06-11] MEDS ORDERED: LISINOPRIL 10 MG TAB PO SCH (09:00)
[2018-06-11] MEDS: PANTOPRAZOLE 40MG INJ (PROTONIX) (C9113) IV SCH ×2 (09:23→21:35)
[2018-06-11] MEDS: cefTRIAXone SOD 1 GM in D5W MINI-BAG PLUS 50 ML IV SCH (09:23)
[2018-06-11] MEDS: ENOXAPARIN 80 MG/0.8 ML SYRINGE (J1650) SC SCH ×2 (09:23→21:35)
[2018-06-11] MEDS: METOPROLOL SUCC *XL* 25MG TAB (TopROL *XL*) PO SCH (09:24)
[2018-06-11] MEDS: ASPIRIN 81 MG ENTERIC TAB PO SCH (09:24)
[2018-06-11] MEDS: MELOXICAM (MOBIC) 7.5 MG TAB PO SCH (09:24)
[2018-06-11] MEDS: LORATADINE 10 MG TAB PO SCH (09:24)
[2018-06-11] MEDS: FUROSEMIDE 20 MG TAB PO SCH (09:25)
--- NOTE | 2018-06-11 10:28 | IPNPDOC ---
Subjective Date Seen The patient was seen on 06/11/18. Subjective Chief Complaint/HPI Patient seen and examined at bedside this morning. Reports that his overall energy level and respiratory status is improving. He remained afebrile overnight and hemodynamically stable. He is scheduled to work with physical therapy today. Objective Physical Examination General Exam: Positive: Alert, Cooperative, No Acute Distress ENT Exam: Positive: Atraumatic, Mucous membr. moist/pink Neck Exam: Negative: JVD Chest Exam: Positive: Diminished Heart Exam: Positive: Rate Normal, Normal S1, Normal S2 Telemetry: Positive: Atrial fibrillation Abdomen Exam: Positive: Soft; Negative: Tenderness Extremity Exam: Negative: Tenderness, Swelling Psych Exam: Positive: Oriented x 3 Assessment /Plan Plan/VTE VTE Prophylaxis Ordered?: Yes Plan Urinary Tract Infection 2/2 Chronic Indwelling Sam Catheter Patient with improvement of mentation, hemodynamically stable this AM UA noted, Urine Culture notable for yeast We will empirically treat the patient with Rocephin for possible UTI, with respiratory coverage as well We will cont to monitor the patient Near Syncopal Episode likely 2/2 above, less likely ?GI Bleed Patient's Hgb 9.3 in the ER on admission, with guaiac positive study in the ER Hgb has remained stable since admission GI consulted; EGD and Colonoscopy with no acute sources of bleeding ntoed AC restarted at this time and we will continue to monitor H&H's New-Onset Atrial Fibrillation? Unclear whether this patient has a history of this, as there are no prior records available. We are still awaiting records from [facility], and will contact the facility again. The patient denies any complaints of chest pain, palpitations at the bedside and is otherwise asymptomatic. Patient has been fluctuating between NSR and A-Fib on the monitor Cont Metoprolol, anticoagulation restarted with Lovenox (We do not have Edoxaban in formulary) History of Pulmonary Embolism On Lovenox SC BID Hx of COPD on 4L of Oxygen at Baseline Cont supplemental oxygen, inhaler therapy, and prn nebs as ordered Hypertension Continue Lasix, lisinopril, metoprolol Dyslipidemia Continue statin GERD Continue PPI Rheumatoid arthritis Plaquenil held 2/2 Infection s/p stress dosing with Hydrocortisone 50mg q8h due to hypotension on 06/10 Will resume Prednisone at this time BPH Continue Flomax DVT prophylaxis Lovenox SC Dispo--pending continued clinical improvement, functional optimization and clearance with physical therapy. VS, I&O, 24H, Fishbone Vital Signs/I&O Vital Signs Date Time Temp Pulse Resp B/P (MAP) Pulse Ox O2 Delivery O2 Flow Rate FiO2 06/11/18 08:30 4.0 06/11/18 07:52 Nasal Cannula 06/11/18 04:00 98.1 104 20 139/63 (88) 94 I&O- Last 24 Hours up to 6 AM 06/11/18 06:00 Intake Total 1850 ml Output Total 800 ml Balance 1050 ml Laboratory Data 24H LABS Laboratory Tests 2 06/11/18 05:46: Nucleated Red Blood Cells % (auto) 0.0, Anion Gap 7L, Glomerular Filtration Rate > 60.0, Blood Urea Nitrogen 18, Creatinine 0.92, Sodium Level 137, Potassium Level 4.0, Chloride Level 106, Carbon Dioxide Level 24, Calcium Level 7.7L, Magnesium Level 1.8, C-Reactive Protein, Quantitative 6.88H CBC/BMP Laboratory Tests 06/11/18 05:46 Red Blood Count 3.04 L, Mean Corpuscular Volume 88.2, Mean Corpuscular Hemoglobin 28.9, Mean Corpuscular Hemoglobin Concent 32.8, Red Cell Distribution Width 15.8 H, Calcium Level 7.7 L Microbiology Microbiology 06/09/18 Respiratory Virus Panel (PCR) ([facility]) - Final, Complete 06/09/18 Urine Culture - Final, Complete Yeast Like Organism MARIANO INMAN MD Jun 11, 2018 10:28
[2018-06-11] MEDS: SYMBICORT 160/4.5MCG INHALER 6GM INH SCH ×2 (11:53→20:29)
[2018-06-11] MEDS: TAMSULOSIN 0.4 MG CAP PO SCH (21:35)
[2018-06-11] MEDS: ATORVASTATIN 10 MG TAB PO SCH (21:35)
[2018-06-12] VITALS (18 sets, daily range): BP systolic 113–150; BP diastolic 54–71; O2SAT 89–96
[2018-06-12] MEDS: IPRATROPIUM 0.5MG/ALBUTEROL 2.5MG INH SOL UD 3ML (DUONEB)(J7620) NEB PRN ×2 (00:29→04:43)
[2018-06-12] MEDS: ACETAMINOPHEN TAB 650MG DOSE (2X325MG) PO PRN ×2 (04:35→13:00)
[2018-06-12] MEDS ORDERED: FUROSEMIDE 20 MG/2 ML VIAL (J1940) IV ONE (04:45)
[2018-06-12 05:37] LABS: HEMATOCRIT 26.6 % (42.0-52.0); HEMOGLOBIN 8.8 g/dl (13.5-17.5); MEAN CORPUSCULAR HEMOGLOBIN 28.6 pg (27.0-33.0); MEAN CORPUSCULAR HGB CONC 33.1 g/dl (32.0-36.5); MEAN CORPUSCULAR VOLUME 86.4 fl (80.0-96.0); PLATELET COUNT, AUTOMATED 142 10^3/uL (150-450); RED BLOOD COUNT 3.08 10^6/uL (4.30-6.10); WHITE BLOOD COUNT 11.1 10^3/uL (4.0-10.0)
[2018-06-12 05:58] LABS: BLOOD UREA NITROGEN 23 MG/DL (7-18); CALCIUM LEVEL 7.7 MG/DL (8.8-10.2); CARBON DIOXIDE LEVEL 22 MEQ/L (21-32); CHLORIDE LEVEL 108 MEQ/L (98-107); CREATININE FOR GFR 1.02 MG/DL (0.70-1.30); GLOMERULAR FILTRATION RATE > 60.0 (>35); GLUCOSE, FASTING 81 MG/DL (70-100); MAGNESIUM LEVEL 1.5 MG/DL (1.8-2.4); POTASSIUM SERUM 3.7 MEQ/L (3.5-5.1); SODIUM LEVEL 139 MEQ/L (136-145)
[2018-06-12] MEDS: SYMBICORT 160/4.5MCG INHALER 6GM INH SCH ×2 (07:04→20:27)
[2018-06-12] MEDS: cefTRIAXone SOD 1 GM in D5W MINI-BAG PLUS 50 ML IV SCH (08:36)
[2018-06-12] MEDS: PANTOPRAZOLE 40MG INJ (PROTONIX) (C9113) IV SCH ×2 (08:37→21:26)
[2018-06-12] MEDS: ENOXAPARIN 80 MG/0.8 ML SYRINGE (J1650) SC SCH ×2 (08:40→21:26)
[2018-06-12] MEDS: FUROSEMIDE 20 MG TAB PO SCH (08:40)
[2018-06-12] MEDS: ASPIRIN 81 MG ENTERIC TAB PO SCH (08:40)
[2018-06-12] MEDS: FLUCONAZOLE 100 MG TAB PO SCH (08:40)
[2018-06-12] MEDS: MAGNESIUM OXIDE 400 MG TAB (MAG-OX) PO SCH ×2 (08:41→21:24)
[2018-06-12] MEDS: predniSONE 5 MG TAB PO SCH (08:41)
[2018-06-12] MEDS: METOPROLOL SUCC *XL* 25MG TAB (TopROL *XL*) PO SCH (08:41)
[2018-06-12] MEDS: MELOXICAM (MOBIC) 7.5 MG TAB PO SCH (08:41)
[2018-06-12] MEDS: LORATADINE 10 MG TAB PO SCH (08:41)
[2018-06-12 08:44] LABS: ABG BASE EXCESS -1.7 (-2.0-2.0); ABG HCO3 21.4 MEQ/L (22.0-26.0); ABG O2 SATURATION 91.5 % (95.0-99.0); ABG PARTIAL PRESSURE CO2 30.9 mmHg (35.0-45.0); ABG PARTIAL PRESSURE O2 60.7 mmHg (75.0-100.0); ABG STANDARD HCO3 22.9 MEQ/L (22.0-26.0); ABG TOTAL CO2 22.4 MEQ/L (23.0-31.0); ABG pH (ARTERIAL) 7.459 UNITS (7.350-7.450)
--- NOTE | 2018-06-12 08:49 | REP ---
: Acute shortness of breath. Comparison: 06/09/2018. Findings: The left lung demonstrates improved aeration as compared to prior examination. Continued atelectasis/infiltrate and small pleural effusion at the right lung base remains unchanged. Mediastinum and cardiac silhouette are stable. No pneumothorax. Skeletal structures intact. Impression: 1. Improved aeration to the left base. 2. Continued evidence for right lower lobe atelectasis/infiltrate and small pleural effusion. Electronically Signed by Asad Arora MD 06/12/2018 08:40 A
[2018-06-12] MEDS: METOPROLOL TART 25 MG TABLET PO SCH ×2 (14:37→21:25)
--- NOTE | 2018-06-12 15:26 | IPN ---
DATE: 06/12/2018 SUBJECTIVE: Patient is seen and examined in the room today. 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 Patient is already noted to have controlled atrial fibrillation with a heart between 130-150. Patient did complain about sputum production. OBJECTIVE: VITAL SIGNS: Temperature 100.7, pulse 135, respirations 24, blood pressure 121/56, pulse ox 92% on 6 liters nasal cannula. GENERAL: Mild distress due to labored breathing, fatigue. Alert and awake. HEENT: Normocephalic, atraumatic. CARDIOVASCULAR: Irregularly irregular tachycardiac. LUNGS: Decreased breath sounds. Mild Respiratory wheezes. No significant crackles. ABDOMEN: Soft, nontender and nondistended. EXTREMITIES: No edema. LABORATORY DATA: WBC 11.1, hemoglobin 8.8, hematocrit 26.6, platelet count is 142, sodium 139, potassium 3.7, chloride 108, carbon dioxide 22, BUN 23, creatinine 1.02, GFR greater than 60, fasting glucose 81, calcium 7.7, magnesium 1.5, c-reactive protein 3.4. ASSESSMENT AND PLAN: 1. Uncontrolled atrial fibrillation. Previous patient is on long acting beta nick, however patients heart rate has not been very under good control. We will adjust the metoprolol. Patient is currently on a dose of Lovenox. We are still waiting for the records from the [place] in [place]. At the baseline the patient seems to be taking edoxaban. We do not carry the formulary. 2. Urinary tract infection secondary to chronic indwelling Sam catheter. Patient continues with fever. Patient started on empiric antibiotic of Rocephin. C-reactive protein is improving. Urine culture show yeast organism. Start Diflucan. 3. History of pulmonary embolism on Lovenox. 4. COPD. At the baseline the patient using 4 liters of oxygen. Maintain patient Oxygen sat between 88-92%. Currently patient has uncontrolled atrial fibrillation. Patient has increased oxygen requirement. 5. Near syncope episode. Patient is on treatment for urinary tract infection. Patient is being monitored on telemetry. Continue with physical therapy. 6. Hypertension. Patient is currently on Lasix, Lopressor. Systolic and diastolic dysfunction. Echocardiogram was performed on 06/07/2018, patient demonstrated mild systolic dysfunction with EF around 45-50%. Patient also demonstrate diastolic dysfunction. Currently the patient is on Lasix. 7. Rheumatoid arthritis. Patient has been taking methotrexate and Plaquenil in the outpatient setting. 8. BPH on Flomax. 9. DVT prophylaxis. Patient on Lovenox.
[2018-06-12] MEDS: ATORVASTATIN 10 MG TAB PO SCH (21:24)
[2018-06-12] MEDS: TAMSULOSIN 0.4 MG CAP PO SCH (21:25)
[2018-06-13] VITALS (17 sets, daily range): BP systolic 71–132; BP diastolic 40–70; O2SAT 88–95
[2018-06-13] MEDS: IPRATROPIUM 0.5MG/ALBUTEROL 2.5MG INH SOL UD 3ML (DUONEB)(J7620) NEB PRN ×2 (01:13→22:22)
[2018-06-13] MEDS ORDERED: FUROSEMIDE 20 MG/2 ML VIAL (J1940) IV ONE (02:00)
[2018-06-13 06:10] LABS: HEMATOCRIT 28.7 % (42.0-52.0); HEMOGLOBIN 9.8 g/dl (13.5-17.5); MEAN CORPUSCULAR HEMOGLOBIN 28.7 pg (27.0-33.0); MEAN CORPUSCULAR HGB CONC 34.1 g/dl (32.0-36.5); MEAN CORPUSCULAR VOLUME 83.9 fl (80.0-96.0); PLATELET COUNT, AUTOMATED 134 10^3/uL (150-450); RED BLOOD COUNT 3.42 10^6/uL (4.30-6.10); WHITE BLOOD COUNT 9.7 10^3/uL (4.0-10.0)
[2018-06-13] MEDS: METOPROLOL TART 25 MG TABLET PO SCH ×3 (06:18→20:14)
[2018-06-13 06:33] LABS: BLOOD UREA NITROGEN 24 MG/DL (7-18); CALCIUM LEVEL 7.7 MG/DL (8.8-10.2); CARBON DIOXIDE LEVEL 27 MEQ/L (21-32); CHLORIDE LEVEL 102 MEQ/L (98-107); GLOMERULAR FILTRATION RATE > 60.0 (>35); GLUCOSE, FASTING 79 MG/DL (70-100); POTASSIUM SERUM 3.8 MEQ/L (3.5-5.1); SODIUM LEVEL 135 MEQ/L (136-145)
[2018-06-13] MEDS: SYMBICORT 160/4.5MCG INHALER 6GM INH SCH ×2 (07:12→20:03)
[2018-06-13 07:54] LABS: C REACTIVE PROTEIN QUANTITATIV 7.11 MG/DL (0.00-0.30); MAGNESIUM LEVEL 1.7 MG/DL (1.8-2.4)
[2018-06-13] MEDS: LORATADINE 10 MG TAB PO SCH (09:19)
[2018-06-13] MEDS: FUROSEMIDE 20 MG TAB PO SCH (09:19)
[2018-06-13] MEDS: FLUCONAZOLE 100 MG TAB PO SCH (09:20)
[2018-06-13] MEDS: MELOXICAM (MOBIC) 7.5 MG TAB PO SCH (09:20)
[2018-06-13] MEDS: ASPIRIN 81 MG ENTERIC TAB PO SCH (09:20)
[2018-06-13] MEDS: ENOXAPARIN 80 MG/0.8 ML SYRINGE (J1650) SC SCH ×2 (09:21→20:12)
[2018-06-13] MEDS: predniSONE 5 MG TAB PO SCH (09:22)
[2018-06-13] MEDS: MAGNESIUM OXIDE 400 MG TAB (MAG-OX) PO SCH ×2 (09:22→20:11)
[2018-06-13] MEDS: PANTOPRAZOLE 40MG INJ (PROTONIX) (C9113) IV SCH ×2 (09:22→20:10)
[2018-06-13] MEDS: cefTRIAXone SOD 1 GM in D5W MINI-BAG PLUS 50 ML IV SCH (09:22)
[2018-06-13] MEDS ORDERED: SLF 3 ML SYR IV PRN (11:45)
[2018-06-13] MEDS: SLF 3 ML SYR IV SCH ×2 (13:54→20:15)
--- NOTE | 2018-06-13 15:41 | IPNPDOC ---
Text Note Date of Service The patient was seen on 06/13/18. NOTE SUBJECTIVE: Patient is seen and examined in the room today. Patient denies fever since yesterday. Patient denies palpitation for chest pain. OBJECTIVE: VITAL SIGNS: Listed below. GENERAL: No distress, fatigue. Alert and awake. HEENT: Normocephalic, atraumatic. CARDIOVASCULAR: Irregularly irregular, regular rate. LUNGS: Decreased breath sounds. Mild Respiratory wheezes. No significant crackles. ABDOMEN: Soft, nontender and nondistended. EXTREMITIES: No edema. LABORATORY DATA: Listed below. ASSESSMENT AND PLAN: #. Uncontrolled atrial fibrillation. - Adjust metoprolol accordingly. Heart rate is improving. On lovenox. At the baseline the patient seems to be taking edoxaban for PE. We do not carry the formulary. # Near syncope - Patient is being treated for UTI. Patient is under medication adjustment for his atrial fibrillation. Patient has orthostatic hypotension. - Continue physical therapy. # Orthostatic hypotension - Continue monitoring input, output and daily weight. - Patient is on diuretic for systolic and diastolic CHF. Adjust diuretic as needed. #. Urinary tract infection secondary to chronic indwelling Sam catheter. - Fever improved. - Urine culture show yeast organism. Start Diflucan. #. History of pulmonary embolism - On Lovenox. # Systolic and diastolic dysfunction - EF 45-50%. Grade 1 diastolic dysfunction - On diuretic. #. COPD. - At the baseline the patient using 4 liters of oxygen. Maintain Oxygen sat between 88-92%. #. Rheumatoid arthritis. - Patient has been taking methotrexate and Plaquenil in the outpatient setting. #. BPH on Flomax. #. DVT prophylaxis. Patient on Lovenox. VS,Fishbone, I+O VS, Fishbone, I+O Laboratory Tests 06/13/18 05:34 Red Blood Count 3.42 L, Mean Corpuscular Volume 83.9, Mean Corpuscular Hemoglobin 28.7, Mean Corpuscular Hemoglobin Concent 34.1, Red Cell Distribution Width 15.8 H, Calcium Level 7.7 L Vital Signs Date Time Temp Pulse Resp B/P (MAP) Pulse Ox O2 Delivery O2 Flow Rate FiO2 06/13/18 15:18 88 18 126/62 (83) 92 Nasal Cannula 4.0 06/13/18 12:00 98.1 I&O- Last 24 Hours up to 6 AM 06/13/18 06:00 Intake Total 840 ml Output Total 2375 ml Balance -1535 ml HIGINIO CHAPMAN DO Jun 13, 2018 15:41
[2018-06-13] MEDS: TAMSULOSIN 0.4 MG CAP PO SCH (20:11)
[2018-06-13] MEDS: ATORVASTATIN 10 MG TAB PO SCH (20:11)
[2018-06-14] VITALS (16 sets, daily range): BP systolic 100–155; BP diastolic 37–68; O2SAT 87–94
[2018-06-14] MEDS: ACETAMINOPHEN TAB 650MG DOSE (2X325MG) PO PRN ×2 (00:02→11:51)
--- NOTE | 2018-06-14 01:40 | IPNPDOC ---
Text Note Date of Service The patient was seen on 06/14/18. NOTE Pt noted have fever spike 101. He is currently being treated for UTI, grew yeast of Ucx, He is on diflucan, had a few days of rocephin. will get XR chest, Blood cx. will continue diflucan, pt will likely benefit from repeat UA to assess for sterility. will continue on current course of diflucan, await XR chest and blood cultures, lines checked , no signs of phlebitis. VS,Fishbone, I+O VS, Fishbone, I+O Laboratory Tests 06/13/18 05:34 Red Blood Count 3.42 L, Mean Corpuscular Volume 83.9, Mean Corpuscular Hemoglobin 28.7, Mean Corpuscular Hemoglobin Concent 34.1, Red Cell Distribution Width 15.8 H, Calcium Level 7.7 L Vital Signs Date Time Temp Pulse Resp B/P (MAP) Pulse Ox O2 Delivery O2 Flow Rate FiO2 06/14/18 00:08 4.0 06/14/18 00:00 101.3 108 18 126/45 (72) 91 06/13/18 18:00 Nasal Cannula I&O- Last 24 Hours up to 6 AM 06/14/18 06:00 Intake Total 1020 ml Output Total 950 ml Balance 70 ml MONDAY,NIDHI CARRANZA Jun 14, 2018 01:40
[2018-06-14] MEDS: SLF 3 ML SYR IV SCH ×3 (04:42→22:00)
[2018-06-14 05:44] LABS: HEMATOCRIT 27.3 % (42.0-52.0); HEMOGLOBIN 9.1 g/dl (13.5-17.5); MEAN CORPUSCULAR HEMOGLOBIN 28.6 pg (27.0-33.0); MEAN CORPUSCULAR HGB CONC 33.3 g/dl (32.0-36.5); MEAN CORPUSCULAR VOLUME 85.8 fl (80.0-96.0); PLATELET COUNT, AUTOMATED 116 10^3/uL (150-450); RED BLOOD COUNT 3.18 10^6/uL (4.30-6.10); WHITE BLOOD COUNT 11.8 10^3/uL (4.0-10.0)
[2018-06-14 05:53] LABS: BLOOD UREA NITROGEN 28 MG/DL (7-18); CALCIUM LEVEL 7.2 MG/DL (8.8-10.2); CARBON DIOXIDE LEVEL 26 MEQ/L (21-32); CHLORIDE LEVEL 101 MEQ/L (98-107); CREATININE FOR GFR 1.15 MG/DL (0.70-1.30); GLOMERULAR FILTRATION RATE > 60.0 (>35); GLUCOSE, FASTING 93 MG/DL (70-100); POTASSIUM SERUM 3.8 MEQ/L (3.5-5.1); SODIUM LEVEL 136 MEQ/L (136-145)
[2018-06-14] MEDS: SYMBICORT 160/4.5MCG INHALER 6GM INH SCH ×2 (07:16→20:36)
--- NOTE | 2018-06-14 07:40 | REP ---
Clinical: Fever. Comparison: 06/03/2018, 06/09/2018. Findings: Right lower lobe infiltrate/atelectasis with small pleural reaction as well as trace left basilar atelectasis suggested essentially unchanged. Remainder of lung ryan demonstrate chronic stable changes. No pneumothorax. Mediastinum and cardiac silhouette are within normal limits. Visualized skeletal structures demonstrate osteopenia and degenerative change. Impression: Continued findings to suggest right lower lobe atelectasis/infiltrate and small pleural reaction along with trace left basilar atelectasis. Electronically Signed by Asad Arora MD 06/14/2018 07:32 A
[2018-06-14 08:09] LABS: C REACTIVE PROTEIN QUANTITATIV 7.17 MG/DL (0.00-0.30); MAGNESIUM LEVEL 1.6 MG/DL (1.8-2.4)
[2018-06-14] MEDS: FUROSEMIDE 20 MG TAB PO SCH (09:00)
[2018-06-14] MEDS: IPRATROPIUM 0.5MG/ALBUTEROL 2.5MG INH SOL UD 3ML (DUONEB)(J7620) NEB PRN (09:31)
[2018-06-14] MEDS: FLUCONAZOLE 100 MG TAB PO SCH (09:39)
[2018-06-14] MEDS: MAGNESIUM OXIDE 400 MG TAB (MAG-OX) PO SCH ×2 (09:40→20:21)
[2018-06-14] MEDS: ASPIRIN 81 MG ENTERIC TAB PO SCH (09:40)
[2018-06-14] MEDS: LORATADINE 10 MG TAB PO SCH (09:40)
[2018-06-14] MEDS: MELOXICAM (MOBIC) 7.5 MG TAB PO SCH (09:40)
[2018-06-14] MEDS: predniSONE 5 MG TAB PO SCH (09:41)
[2018-06-14] MEDS: METOPROLOL TART 25 MG TABLET PO SCH ×3 (09:41→22:00)
[2018-06-14] MEDS: PANTOPRAZOLE 40MG INJ (PROTONIX) (C9113) IV SCH (09:42)
[2018-06-14] MEDS: ENOXAPARIN 80 MG/0.8 ML SYRINGE (J1650) SC SCH ×2 (09:42→20:20)
[2018-06-14] MEDS ORDERED: ISOVUE-370 76% 100ML VIAL (Q9967) As Ordered ONE (14:21)
--- NOTE | 2018-06-14 15:28 | REP ---
CT CHEST WITH IV CONTRAST: TECHNIQUE: Axial contrast enhanced images from the thoracic inlet to the upper abdomen using 100 mL Isovue 370 intravenous contrast material with multiplanar reformations. There are diffuse scattered fibrotic changes throughout both lungs. Streaky and patchy infiltrate is seen in the posterior right lower lobe with a small right effusion. There is a tiny left effusion. There are mild dependant atelectatic changes in the left lower lobe. In the left upper lobe peripherally there is an oval irregular nodular opacity which measures 1.7 x 0.9 x 1.4 cm. In the superior segment of the left lower lobe there is an oval somewhat elongated irregular opacity measuring approximately 3.6 x 1.5 x 2.0 cm. These opacities could be neoplastic or inflammatory. Subcentimeter subpleural nodular opacity is seen more inferiorly in the left lower lobe. Multiple mediastinal and hilar lymph nodes are present, some of which are mildly enlarged with others subcentimeter in size. An AP window node measures 1.3 cm in short axis and a right hilar lymph node measures 1.5 cm. Heart is not enlarged. There is no pericardial effusion. There is moderate atherosclerotic calcification of the thoracic aorta without aneurysm. There are degenerative changes of the spine. In the visualized potions of the upper abdomen a small cyst is seen in the tail of the pancreas which is of doubtful clinical significance measuring 1.4 cm in diameter. There is a cyst in the upper pole of the right kidney 2.1 cm in diameter. IMPRESSION: Right lower lobe infiltrate/atelectasis. Small right pleural effusion. Two dominant nodular opacities in the left lung as discussed above could be neoplastic or inflammatory. There is a tiny left effusion with dependant atelectatic changes in the left lower lobe. There is mild mediastinal and right hilar adenopathy. Small cyst in the tail of the pancreas measures 1.4 cm in diameter and is of doubtful clinical significance. Cyst in the upper pole of the right kidney measures 2.1 cm. Electronically Signed by Jame Bill MD 06/14/2018 03:57 P
--- NOTE | 2018-06-14 17:30 | IPNPDOC ---
Text Note Date of Service The patient was seen on 06/14/18. NOTE SUBJECTIVE: Patient is seen and examined in the room today. Patient had fever last night. Patient continues having significant weakness. OBJECTIVE: VITAL SIGNS: Listed below. GENERAL: No distress, fatigue. Alert and awake. HEENT: Normocephalic, atraumatic. CARDIOVASCULAR: Irregularly irregular, tachycardic. LUNGS: Decreased breath sounds. Mild Respiratory wheezes. No significant crackles. ABDOMEN: Soft, nontender and nondistended. EXTREMITIES: No edema. LABORATORY DATA: Listed below. ASSESSMENT AND PLAN: #. Uncontrolled atrial fibrillation. - Adjust metoprolol accordingly. Heart rate is improving. On lovenox. At the baseline the patient seems to be taking edoxaban for PE. We do not carry the formulary. # Near syncope - Multifactorial. Patient is being treated for UTI. Patient is under medication adjustment for his atrial fibrillation. Patient has orthostatic hypotension. - Continue physical therapy. # Orthostatic hypotension - Continue monitoring input, output and daily weight. - Patient was on diuretic for systolic and diastolic CHF. diuretic is on hold at this moment. #. Urinary tract infection secondary to chronic indwelling Sam catheter. - Fever improved. - Urine culture show yeast organism. On Diflucan. #. History of pulmonary embolism - On Lovenox. # Systolic and diastolic dysfunction - EF 45-50%. Grade 1 diastolic dysfunction - Diuretic is on hold due to hypotension. Will monitor fluid status closely. #. COPD. - At the baseline the patient using 4 liters of oxygen. Maintain Oxygen sat between 88-92%. #. Rheumatoid arthritis. - Patient has been taking methotrexate and Plaquenil in the outpatient setting. #. BPH on Flomax. #. DVT prophylaxis. Patient on Lovenox. VS,Fishbone, I+O VS, Fishbone, I+O Laboratory Tests 06/14/18 01:41 Red Blood Count 3.18 L, Mean Corpuscular Volume 85.8, Mean Corpuscular Hemoglobin 28.6, Mean Corpuscular Hemoglobin Concent 33.3, Red Cell Distribution Width 15.8 H, Calcium Level 7.2 L Vital Signs Date Time Temp Pulse Resp B/P (MAP) Pulse Ox O2 Delivery O2 Flow Rate FiO2 06/14/18 16:00 94 Nasal Cannula 4.0 06/14/18 16:00 98.4 96 22 102/57 (72) I&O- Last 24 Hours up to 6 AM 06/14/18 06:00 Intake Total 1020 ml Output Total 950 ml Balance 70 ml HIGINIO CHAPMAN DO Jun 14, 2018 17:30
[2018-06-14] MEDS: ATORVASTATIN 10 MG TAB PO SCH (20:20)
[2018-06-14] MEDS: TAMSULOSIN 0.4 MG CAP PO SCH (20:21)
[2018-06-15] VITALS (11 sets, daily range): BP systolic 105–144; BP diastolic 44–67; O2SAT 90–97
[2018-06-15] MEDS: IPRATROPIUM 0.5MG/ALBUTEROL 2.5MG INH SOL UD 3ML (DUONEB)(J7620) NEB PRN ×3 (04:35→14:55)
[2018-06-15 05:17] LABS: HEMATOCRIT 29.4 % (42.0-52.0); HEMOGLOBIN 9.8 g/dl (13.5-17.5); MEAN CORPUSCULAR HEMOGLOBIN 28.5 pg (27.0-33.0); MEAN CORPUSCULAR HGB CONC 33.3 g/dl (32.0-36.5); MEAN CORPUSCULAR VOLUME 85.5 fl (80.0-96.0); PLATELET COUNT, AUTOMATED 131 10^3/uL (150-450); RED BLOOD COUNT 3.44 10^6/uL (4.30-6.10); WHITE BLOOD COUNT 13.4 10^3/uL (4.0-10.0)
[2018-06-15] MEDS: SLF 3 ML SYR IV SCH ×3 (05:32→22:00)
[2018-06-15] MEDS: METOPROLOL TART 25 MG TABLET PO SCH ×3 (05:32→22:21)
[2018-06-15 05:49] LABS: BLOOD UREA NITROGEN 30 MG/DL (7-18); CALCIUM LEVEL 7.7 MG/DL (8.8-10.2); CARBON DIOXIDE LEVEL 27 MEQ/L (21-32); CHLORIDE LEVEL 102 MEQ/L (98-107); CREATININE FOR GFR 1.08 MG/DL (0.70-1.30); GLOMERULAR FILTRATION RATE > 60.0 (>35); GLUCOSE, FASTING 90 MG/DL (70-100); POTASSIUM SERUM 4.2 MEQ/L (3.5-5.1); SODIUM LEVEL 135 MEQ/L (136-145)
--- NOTE | 2018-06-15 05:57 | IPNPDOC ---
Text Note Date of Service The patient was seen on 06/15/18. NOTE pt having intermittent fever spikes, CT chest completed today: RLL atelectasis vs infiltrates, sputum Cx: GPC pairs/chains/cluster and GNR. Pt coughing of brownish sputum, has been inpatient for 1 week. will treat for HAP: start Vanco/ Cefepime. will endorse to day team VS,Fishbone, I+O VS, Fishbone, I+O Laboratory Tests 06/15/18 05:02 Red Blood Count 3.44 L, Mean Corpuscular Volume 85.5, Mean Corpuscular Hemoglobin 28.5, Mean Corpuscular Hemoglobin Concent 33.3, Red Cell Distribution Width 16.0 H, Calcium Level 7.7 L Vital Signs Date Time Temp Pulse Resp B/P (MAP) Pulse Ox O2 Delivery O2 Flow Rate FiO2 06/15/18 05:32 83 130/52 06/15/18 04:30 4.0 06/15/18 04:30 Nasal Cannula 06/15/18 04:00 98.8 22 94 I&O- Last 24 Hours up to 6 AM 06/15/18 06:00 Intake Total 1120 ml Output Total 750 ml Balance 370 ml MONDAY,NIDHI CARRANZA Jun 15, 2018 05:57
[2018-06-15] MEDS: CEFEPIME HCL 1 GM in D5W MINI-BAG PLUS 50 ML IV SCH (06:16)
--- NOTE | 2018-06-15 07:23 | PHACANCOPD ---
PHARMACY VANCOMYCIN DOSING Pt Demographics Demographics Patient Age:88 , Weight:81.800 , Gender: male Adjusted Body Weight Date: 06/15/18, Adjusted Body Weight: [81.8] Kg Events Past 24 Hours Events Past 24 Hours: NO: Dialysis, Diuretic Therapy, Change in CrCl, Fever, Elevation in WBC, Pending Diagnostics, Pending Procedures, Other Vancomycin Vancomycin indication: Hospital acquired pneumonia Vancomycin Target Ranges: 15-20 mcg/ml Vancomycin Load Y/N: Yes Load Dose Date Time Vancomycin Load Dose: 2g Date: 06/15/18 Time:08:00 Vancomycin Dose Date: 06/15/18. Current Vancomycin Dose: [1g iv q24h] Intermittent Dosing?: No Labs Labs Item Value Date Time White Blood Count 11.1 10^3/uL H 06/12/18 0527 White Blood Count 9.7 10^3/uL 06/13/18 0534 White Blood Count 13.4 10^3/uL H 06/15/18 0502 White Blood Count 11.8 10^3/uL H 06/14/18 0141 Creatinine 1.10 MG/DL 06/13/18 0534 Creatinine 1.15 MG/DL 06/14/18 0141 Creatinine 1.08 MG/DL 06/15/18 0502 C-Reactive Protein, Quantitative 7.11 MG/DL H 06/13/18 0534 C-Reactive Protein, Quantitative 7.17 MG/DL H 06/14/18 0141 Micro Microbiology 06/14/18 Blood Culture - Preliminary, Resulted No growth after 24 hours . All specim... 06/13/18 Gram Stain - Final, Resulted 06/13/18 Sputum Culture, Resulted Pending 06/09/18 Respiratory Virus Panel (PCR) ([facility]) - Final, Complete 06/09/18 Urine Culture - Final, Complete Yeast Like Organism Creatinine Clearance Date:06/15/18. Creatinine Clearance: [51.3ml/min]. Assessment and Plan Maintaining Current Dose?: Yes Reason for dose change: No Dose Change Pharmacist Note Pharmacist Note Date: 06/15/18. Pharmacist note: PT is an 88 year old male being treated for hospital acquired pneumonia goal trough 15-20mcg/ml. The patient history of vancomycin therapy here at [facility] includes 1g of vancomycin iv 06/06/18. To achieve goal a 2g vancomycin iv loading dose will start 06/15/18 @08. Maintenance therapy will consist of 1g IV every 24 hours. We will continue to monitor and adjust the dose as needed. KANNAN LEBLANC PHARMACY Jun 15, 2018 07:23
[2018-06-15 07:28] LABS: C REACTIVE PROTEIN QUANTITATIV 9.68 MG/DL (0.00-0.30)
[2018-06-15] MEDS ORDERED: VANCOMYCIN HCL 1,000 MG, VIAL MATE ADAPTER 1 EACH in D5W 250 ML IV ONE (09:00)
[2018-06-15] MEDS: VANCOMYCIN HCL 1,000 MG, VIAL MATE ADAPTER 1 EACH in D5W 250 ML IV SCH (09:04)
[2018-06-15] MEDS: PANTOPRAZOLE 40MG TAB (PROTONIX) PO SCH (09:05)
[2018-06-15] MEDS: MAGNESIUM OXIDE 400 MG TAB (MAG-OX) PO SCH ×2 (09:05→22:18)
[2018-06-15] MEDS: ENOXAPARIN 80 MG/0.8 ML SYRINGE (J1650) SC SCH ×2 (09:05→22:17)
[2018-06-15] MEDS: predniSONE 5 MG TAB PO SCH (09:05)
[2018-06-15] MEDS: LORATADINE 10 MG TAB PO SCH (09:06)
[2018-06-15] MEDS: MELOXICAM (MOBIC) 7.5 MG TAB PO SCH (09:06)
[2018-06-15] MEDS: FLUCONAZOLE 100 MG TAB PO SCH (09:06)
[2018-06-15] MEDS: ACETAMINOPHEN TAB 650MG DOSE (2X325MG) PO PRN (09:06)
[2018-06-15] MEDS: ASPIRIN 81 MG ENTERIC TAB PO SCH (09:06)
[2018-06-15] MEDS: SYMBICORT 160/4.5MCG INHALER 6GM INH SCH ×2 (13:41→21:05)
--- NOTE | 2018-06-15 15:54 | IPNPDOC ---
Text Note Date of Service The patient was seen on 06/15/18. NOTE SUBJECTIVE: Patient is seen and examined in the room today. Patient continues having intermittent fever. Patient states his breathing is worsening because he starts having increased sputum production. OBJECTIVE: VITAL SIGNS: Listed below. GENERAL: Mild distress, fatigue. Alert and awake. HEENT: Normocephalic, atraumatic. CARDIOVASCULAR: Irregularly irregular, tachycardic. LUNGS: Decreased breath sounds. Mild Respiratory wheezes. positive crackles. ABDOMEN: Soft, nontender and nondistended. EXTREMITIES: No edema. LABORATORY DATA: Listed below. ASSESSMENT AND PLAN: # Pneumonia - Continue intermittent fever, Worsening WBC and CRP. CT chest reviewed. follow up with sputum culture. On empirical antibiotics. - Continue titrating oxygen as tolerated. #. Uncontrolled atrial fibrillation. - Adjust metoprolol accordingly. Heart rate is improving. On lovenox. At the [facility] the patient seems to be taking edoxaban for PE. We do not carry the formulary. # Near syncope - Multifactorial. Patient is being treated for UTI. Patient is under medication adjustment for his atrial fibrillation. Patient has orthostatic hypotension. - Continue physical therapy. # Orthostatic hypotension - Continue monitoring input, output and daily weight. - Patient was on diuretic for systolic and diastolic CHF. diuretic is on hold at this moment. #. Urinary tract infection secondary to chronic indwelling Sam catheter. - Fever improved. - Urine culture show yeast organism. On Diflucan. #. History of pulmonary embolism - On Lovenox. # Systolic and diastolic dysfunction - EF 45-50%. Grade 1 diastolic dysfunction - Diuretic is on hold due to hypotension. Will monitor fluid status closely. #. COPD. - At the baseline the patient using 4 liters of oxygen. Maintain Oxygen sat between 88-92%. #. Rheumatoid arthritis. - Patient has been taking methotrexate and Plaquenil in the outpatient setting. #. BPH on Flomax. #. DVT prophylaxis. Patient on Lovenox. VS,Fishbone, I+O VS, Fishbone, I+O Laboratory Tests 06/15/18 05:02 Red Blood Count 3.44 L, Mean Corpuscular Volume 85.5, Mean Corpuscular Hemoglobin 28.5, Mean Corpuscular Hemoglobin Concent 33.3, Red Cell Distribution Width 16.0 H, Calcium Level 7.7 L Vital Signs Date Time Temp Pulse Resp B/P (MAP) Pulse Ox O2 Delivery O2 Flow Rate FiO2 06/15/18 14:00 84 95/54 06/15/18 12:00 98.3 20 92 4.0 06/15/18 08:58 Nasal Cannula I&O- Last 24 Hours up to 6 AM 06/15/18 06:00 Intake Total 1120 ml Output Total 750 ml Balance 370 ml HIGINIO CHAPMAN DO Jun 15, 2018 15:54
[2018-06-15] MEDS: ATORVASTATIN 10 MG TAB PO SCH (21:00)
[2018-06-15] MEDS: TAMSULOSIN 0.4 MG CAP PO SCH (22:18)
[2018-06-16] VITALS (21 sets, daily range): BP systolic 117–132; BP diastolic 56–63; O2SAT 90–98
[2018-06-16] MEDS: IPRATROPIUM 0.5MG/ALBUTEROL 2.5MG INH SOL UD 3ML (DUONEB)(J7620) NEB PRN ×2 (04:56→08:26)
[2018-06-16 05:36] LABS: HEMATOCRIT 27.3 % (42.0-52.0); HEMOGLOBIN 8.9 g/dl (13.5-17.5); MEAN CORPUSCULAR HGB CONC 32.6 g/dl (32.0-36.5); MEAN CORPUSCULAR VOLUME 85.8 fl (80.0-96.0); PLATELET COUNT, AUTOMATED 131 10^3/uL (150-450); RED BLOOD COUNT 3.18 10^6/uL (4.30-6.10); WHITE BLOOD COUNT 10.2 10^3/uL (4.0-10.0)
[2018-06-16 05:57] LABS: BLOOD UREA NITROGEN 29 MG/DL (7-18); C REACTIVE PROTEIN QUANTITATIV 8.18 MG/DL (0.00-0.30); CALCIUM LEVEL 7.6 MG/DL (8.8-10.2); CARBON DIOXIDE LEVEL 30 MEQ/L (21-32); CHLORIDE LEVEL 100 MEQ/L (98-107); CREATININE FOR GFR 1.11 MG/DL (0.70-1.30); GLOMERULAR FILTRATION RATE > 60.0 (>35); GLUCOSE, FASTING 92 MG/DL (70-100); MAGNESIUM LEVEL 2.1 MG/DL (1.8-2.4); POTASSIUM SERUM 4.2 MEQ/L (3.5-5.1); SODIUM LEVEL 135 MEQ/L (136-145)
[2018-06-16] MEDS: CEFEPIME HCL 1 GM in D5W MINI-BAG PLUS 50 ML IV SCH (06:15)
[2018-06-16] MEDS: SLF 3 ML SYR IV SCH ×3 (06:16→21:27)
[2018-06-16] MEDS: METOPROLOL TART 25 MG TABLET PO SCH ×3 (06:16→21:27)
[2018-06-16] MEDS: SYMBICORT 160/4.5MCG INHALER 6GM INH SCH ×2 (08:36→20:27)
[2018-06-16] MEDS: MAGNESIUM OXIDE 400 MG TAB (MAG-OX) PO SCH ×2 (08:51→21:27)
[2018-06-16] MEDS: VANCOMYCIN HCL 1,000 MG, VIAL MATE ADAPTER 1 EACH in D5W 250 ML IV SCH (08:51)
[2018-06-16] MEDS: ACETAMINOPHEN TAB 650MG DOSE (2X325MG) PO PRN (08:51)
[2018-06-16] MEDS: FLUCONAZOLE 100 MG TAB PO SCH (08:52)
[2018-06-16] MEDS: ASPIRIN 81 MG ENTERIC TAB PO SCH (08:52)
[2018-06-16] MEDS: predniSONE 5 MG TAB PO SCH (08:52)
[2018-06-16] MEDS: LORATADINE 10 MG TAB PO SCH (08:52)
[2018-06-16] MEDS: MELOXICAM (MOBIC) 7.5 MG TAB PO SCH (08:52)
[2018-06-16] MEDS: ENOXAPARIN 80 MG/0.8 ML SYRINGE (J1650) SC SCH ×2 (08:52→21:26)
[2018-06-16] MEDS: PANTOPRAZOLE 40MG TAB (PROTONIX) PO SCH (08:52)
--- NOTE | 2018-06-16 15:47 | IPNPDOC ---
Text Note Date of Service The patient was seen on 06/16/18. NOTE SUBJECTIVE: Patient is seen and examined in the room today. Patient continues having sputum productions. He still complains about difficulty breathing. OBJECTIVE: VITAL SIGNS: Listed below. GENERAL: Mild distress, fatigue. Alert and awake. HEENT: Normocephalic, atraumatic. CARDIOVASCULAR: Irregularly irregular, regular rate LUNGS: Decreased breath sounds. Mild Respiratory wheezes. positive crackles. ABDOMEN: Soft, nontender and nondistended. EXTREMITIES: No edema. LABORATORY DATA: Listed below. ASSESSMENT AND PLAN: # Pneumonia - Continue intermittent fever, Worsening WBC and CRP. CT chest reviewed. - Sputum culture is positive for pseudomonas. On Cefepime. MRSA screening is pending. On vancomycin. - Continue titrating oxygen as tolerated. #. Uncontrolled atrial fibrillation. - Adjust metoprolol accordingly.On lovenox. At the baseline the patient seems to be taking edoxaban for PE. We do not carry the formulary. - Record has been requested from [facility] ([facility]) since 06/07/18. # Near syncope - Multifactorial. Patient is being treated for UTI and pneumonia. Patient is under medication adjustment for his atrial fibrillation. Patient has orthostatic hypotension. - Continue physical therapy. # Orthostatic hypotension - Continue monitoring input, output and daily weight. - Patient was on diuretic for systolic and diastolic CHF. diuretic is on hold at this moment. #. Urinary tract infection secondary to chronic indwelling Sam catheter. - Urine culture show yeast organism. On Diflucan. #. History of pulmonary embolism - On Lovenox. # Systolic and diastolic dysfunction - EF 45-50%. Grade 1 diastolic dysfunction - Diuretic is on hold due to hypotension. Will monitor fluid status closely. #. COPD. - At the baseline the patient using 4 liters of oxygen. Maintain Oxygen sat between 88-92%. #. Rheumatoid arthritis. - Patient has been taking methotrexate and Plaquenil in the outpatient setting. #. BPH on Flomax. #. DVT prophylaxis. Patient on Lovenox. VS,Fishbone, I+O VS, Fishbone, I+O Laboratory Tests 06/16/18 04:33 Red Blood Count 3.18 L, Mean Corpuscular Volume 85.8, Mean Corpuscular Hemoglobin 28.0, Mean Corpuscular Hemoglobin Concent 32.6, Red Cell Distribution Width 15.9 H, Calcium Level 7.6 L Vital Signs Date Time Temp Pulse Resp B/P (MAP) Pulse Ox O2 Delivery O2 Flow Rate FiO2 06/16/18 14:00 74 97/60 06/16/18 12:00 98.5 21 91 4.0 06/16/18 03:00 Nasal Cannula I&O- Last 24 Hours up to 6 AM 06/16/18 06:00 Intake Total 920 ml Output Total 675 ml Balance 245 ml HIGINIO CHAPMAN DO Jun 16, 2018 15:47
[2018-06-16] MEDS: ATORVASTATIN 10 MG TAB PO SCH (21:26)
[2018-06-16] MEDS: TAMSULOSIN 0.4 MG CAP PO SCH (21:26)
[2018-06-17] VITALS (15 sets, daily range): BP systolic 103–157; BP diastolic 52–70; O2SAT 93–98
[2018-06-17] MEDS: IPRATROPIUM 0.5MG/ALBUTEROL 2.5MG INH SOL UD 3ML (DUONEB)(J7620) NEB PRN ×3 (02:33→21:51)
[2018-06-17] MEDS: SLF 3 ML SYR IV SCH ×3 (06:28→21:13)
[2018-06-17] MEDS: CEFEPIME HCL 1 GM in D5W MINI-BAG PLUS 50 ML IV SCH (06:29)
[2018-06-17] MEDS: METOPROLOL TART 25 MG TABLET PO SCH ×3 (06:29→21:04)
[2018-06-17 06:58] LABS: HEMATOCRIT 26.7 % (42.0-52.0); HEMOGLOBIN 8.9 g/dl (13.5-17.5); MEAN CORPUSCULAR HEMOGLOBIN 28.7 pg (27.0-33.0); MEAN CORPUSCULAR HGB CONC 33.3 g/dl (32.0-36.5); MEAN CORPUSCULAR VOLUME 86.1 fl (80.0-96.0); PLATELET COUNT, AUTOMATED 146 10^3/uL (150-450); WHITE BLOOD COUNT 10.5 10^3/uL (4.0-10.0)
[2018-06-17 07:17] LABS: BLOOD UREA NITROGEN 24 MG/DL (7-18); C REACTIVE PROTEIN QUANTITATIV 6.73 MG/DL (0.00-0.30); CALCIUM LEVEL 7.3 MG/DL (8.8-10.2); CARBON DIOXIDE LEVEL 27 MEQ/L (21-32); CHLORIDE LEVEL 99 MEQ/L (98-107); GLOMERULAR FILTRATION RATE > 60.0 (>35); GLUCOSE, FASTING 86 MG/DL (70-100); POTASSIUM SERUM 4.4 MEQ/L (3.5-5.1); SODIUM LEVEL 132 MEQ/L (136-145)
[2018-06-17] MEDS: SYMBICORT 160/4.5MCG INHALER 6GM INH SCH ×2 (07:38→20:39)
[2018-06-17] MEDS: VANCOMYCIN HCL 1,000 MG, VIAL MATE ADAPTER 1 EACH in D5W 250 ML IV SCH (08:11)
[2018-06-17] MEDS: MELOXICAM (MOBIC) 7.5 MG TAB PO SCH (08:12)
[2018-06-17] MEDS: FLUCONAZOLE 100 MG TAB PO SCH (08:12)
[2018-06-17] MEDS: MAGNESIUM OXIDE 400 MG TAB (MAG-OX) PO SCH ×2 (08:12→21:05)
[2018-06-17] MEDS: ENOXAPARIN 80 MG/0.8 ML SYRINGE (J1650) SC SCH ×2 (08:12→21:04)
[2018-06-17] MEDS: LORATADINE 10 MG TAB PO SCH (08:12)
[2018-06-17] MEDS: ASPIRIN 81 MG ENTERIC TAB PO SCH (08:13)
[2018-06-17] MEDS: predniSONE 5 MG TAB PO SCH (08:13)
[2018-06-17] MEDS: PANTOPRAZOLE 40MG TAB (PROTONIX) PO SCH (08:13)
[2018-06-17] MEDS: ACETAMINOPHEN TAB 650MG DOSE (2X325MG) PO PRN (08:13)
--- NOTE | 2018-06-17 17:15 | IPNPDOC ---
Text Note Date of Service The patient was seen on 06/17/18. NOTE SUBJECTIVE: Patient is seen and examined in the room today. Patient still has persistent yellow sputum productions. Denies blood in sputum. He has difficulty breathing. OBJECTIVE: VITAL SIGNS: Listed below. GENERAL: Mild distress, fatigue. Alert and awake. HEENT: Normocephalic, atraumatic. CARDIOVASCULAR: Irregularly irregular, regular rate LUNGS: Decreased breath sounds. Mild Respiratory wheezes. positive crackles. ABDOMEN: Soft, nontender and nondistended. EXTREMITIES: No edema. LABORATORY DATA: Listed below. ASSESSMENT AND PLAN: # Pneumonia - CT chest reviewed. - Sputum culture is positive for pseudomonas. On Cefepime. MRSA screening is negative. Vancomycin discontinued. - Continue titrating oxygen as tolerated. #. Uncontrolled atrial fibrillation. - Adjust metoprolol accordingly. On lovenox. At the baseline the patient seems to be taking edoxaban for PE. We do not carry the formulary. - Record has been requested from [facility] ([facility]) since 06/07/18. # Near syncope - Multifactorial. Patient is being treated for UTI and pneumonia. Patient is under medication adjustment for his atrial fibrillation. Patient has orthostatic hypotension. - Continue physical therapy. # Orthostatic hypotension - Continue monitoring input, output and daily weight. - Patient was on diuretic for systolic and diastolic CHF. diuretic is on hold at this moment. #. Urinary tract infection secondary to chronic indwelling Sam catheter. - Urine culture show yeast organism. On Diflucan. #. History of pulmonary embolism - On Lovenox. # Systolic and diastolic dysfunction - EF 45-50%. Grade 1 diastolic dysfunction - Diuretic is on hold due to hypotension. Will monitor fluid status closely. #. COPD. - At the baseline the patient using 4 liters of oxygen. Maintain Oxygen sat between 88-92%. #. Rheumatoid arthritis. - Patient has been taking methotrexate and Plaquenil in the outpatient setting. These medications are on hold. Currently patient is being treated for PNA and UTI. #. BPH on Flomax. #. DVT prophylaxis. Patient on Lovenox. VS,Fishbone, I+O VS, Fishbone, I+O Laboratory Tests 06/17/18 06:43 Red Blood Count 3.10 L, Mean Corpuscular Volume 86.1, Mean Corpuscular Hemoglobin 28.7, Mean Corpuscular Hemoglobin Concent 33.3, Red Cell Distribution Width 16.1 H, Calcium Level 7.3 L Vital Signs Date Time Temp Pulse Resp B/P (MAP) Pulse Ox O2 Delivery O2 Flow Rate FiO2 06/17/18 15:33 97.4 71 20 103/59 (74) 97 4.0 06/17/18 06:00 Nasal Cannula I&O- Last 24 Hours up to 6 AM 06/17/18 06:00 Intake Total 1310 ml Output Total 550 ml Balance 760 ml HIGINIO CHAPMAN DO Jun 17, 2018 17:15
[2018-06-17] MEDS: ATORVASTATIN 10 MG TAB PO SCH (21:04)
[2018-06-17] MEDS: TAMSULOSIN 0.4 MG CAP PO SCH (21:05)
[2018-06-18] VITALS (21 sets, daily range): BP systolic 98–152; BP diastolic 46–68; O2SAT 90–98
[2018-06-18] MEDS: SLF 3 ML SYR IV SCH ×3 (05:05→21:22)
[2018-06-18] MEDS: CEFEPIME HCL 1 GM in D5W MINI-BAG PLUS 50 ML IV SCH (06:04)
[2018-06-18] MEDS: METOPROLOL TART 25 MG TABLET PO SCH ×3 (06:04→21:15)
[2018-06-18 06:53] LABS: HEMATOCRIT 26.1 % (42.0-52.0); HEMOGLOBIN 8.8 g/dl (13.5-17.5); MEAN CORPUSCULAR HEMOGLOBIN 28.6 pg (27.0-33.0); MEAN CORPUSCULAR HGB CONC 33.7 g/dl (32.0-36.5); MEAN CORPUSCULAR VOLUME 84.7 fl (80.0-96.0); PLATELET COUNT, AUTOMATED 160 10^3/uL (150-450); RED BLOOD COUNT 3.08 10^6/uL (4.30-6.10); WHITE BLOOD COUNT 10.4 10^3/uL (4.0-10.0)
[2018-06-18 07:21] LABS: BLOOD UREA NITROGEN 24 MG/DL (7-18); C REACTIVE PROTEIN QUANTITATIV 6.18 MG/DL (0.00-0.30); CALCIUM LEVEL 7.3 MG/DL (8.8-10.2); CARBON DIOXIDE LEVEL 28 MEQ/L (21-32); CHLORIDE LEVEL 100 MEQ/L (98-107); CREATININE FOR GFR 1.01 MG/DL (0.70-1.30); GLOMERULAR FILTRATION RATE > 60.0 (>35); GLUCOSE, FASTING 80 MG/DL (70-100); MAGNESIUM LEVEL 1.9 MG/DL (1.8-2.4); POTASSIUM SERUM 4.6 MEQ/L (3.5-5.1); SODIUM LEVEL 133 MEQ/L (136-145)
[2018-06-18] MEDS: SYMBICORT 160/4.5MCG INHALER 6GM INH SCH ×2 (07:25→19:55)
[2018-06-18] MEDS: IPRATROPIUM 0.5MG/ALBUTEROL 2.5MG INH SOL UD 3ML (DUONEB)(J7620) NEB PRN ×2 (09:00→19:55)
[2018-06-18] MEDS: ENOXAPARIN 80 MG/0.8 ML SYRINGE (J1650) SC SCH ×2 (09:09→21:14)
[2018-06-18] MEDS: MELOXICAM (MOBIC) 7.5 MG TAB PO SCH (09:10)
[2018-06-18] MEDS: MAGNESIUM OXIDE 400 MG TAB (MAG-OX) PO SCH ×2 (09:10→21:14)
[2018-06-18] MEDS: FLUCONAZOLE 100 MG TAB PO SCH (09:10)
[2018-06-18] MEDS: ASPIRIN 81 MG ENTERIC TAB PO SCH (09:10)
[2018-06-18] MEDS: PANTOPRAZOLE 40MG TAB (PROTONIX) PO SCH (09:11)
[2018-06-18] MEDS: predniSONE 5 MG TAB PO SCH (09:11)
[2018-06-18] MEDS: LORATADINE 10 MG TAB PO SCH (09:11)
--- NOTE | 2018-06-18 10:19 | IPNPDOC ---
Text Note Date of Service The patient was seen on 06/18/18. NOTE SUBJECTIVE: Pt examined at bedside. No new complaints or reported events overnight. Pt states he is eager to get fresh air. Still coughing phlegm. No f/c, n/v, abd pain. OBJECTIVE: VITAL SIGNS: Listed below. GENERAL: Alert and awake. Conversant. NAD HEENT: Normocephalic, atraumatic. EOMI, anicteric sclera CARDIOVASCULAR: Irregularly irregular, regular rate LUNGS: Decreased breath sounds. Mild Respiratory wheezes, on baseline 4L NC ABDOMEN: Soft, nontender and nondistended EXTREMITIES: No edema, clubbing, or cyanosis LABORATORY DATA: Listed below. ASSESSMENT AND PLAN: --Pseudomonas Pneumonia continue Cefepime, started 06/15. Pt is currently at baseline 4L NC, but still having sputum production and subjective shortness of breath. continue duoneb and symbicort and chronic po prednisone-which he is on for RA --Chronic atrial fibrillation with hx of PE rate controlled on po lopressor after dosages adjusted from home dose of 50mg daily to 25mg q8h continue lovenox in lieu of his home edoxaban, which we do not carry on formulary awaiting records from [facility], which have been requested since 06/07/18 --Near syncope Multifactorial: UTI, pneumonia, Lopressor requiring dose adjustment for or thostatic hypotension. Pt feeling better today. Continue physical therapy. --Orthostatic hypotension in setting of baseline HTN Home Lasix and lisinopril on hold. Sx improved since Lopressor dose adjusted Pt is on po Lasix & Lisinopril at home for systolic and diastolic CHF. Continue holding until back to baseline functioning. Is euvolemic currently --Urinary tract infection 2/2 chronic indwelling Sam catheter. Urine culture +yeast organism. Continue Diflucan started 06/12 --History of pulmonary embolism Chronically anticoagulated. On Lovenox inpatient. --Systolic and diastolic dysfunction EF 45-50% as of 06/07/1819. Grade 1 diastolic dysfunction with mild LVH Diuretic & ACEi on hold due to hypotension and dizziness. Continue monitoring fluid status closely and consider resuming once more stable --COPD currently on baseline 4L NC. Maintain Oxygen sat between 88-92% and continue home nebs --Rheumatoid arthritis. home methotrexate and Plaquenil on hold as he is being treated for active infections: PNA and UTI --BPH continue home Flomax --GERD continue PPI --Dyslipidemia continue home statin and ASA DVT ppx: on Lovenox. DISPOSITION: pending PT and clinical improvement. VS,Fishbone, I+O VS, Fishbone, I+O Laboratory Tests 06/18/18 06:16 Red Blood Count 3.08 L, Mean Corpuscular Volume 84.7, Mean Corpuscular Hemoglob in 28.6, Mean Corpuscular Hemoglobin Concent 33.7, Red Cell Distribution Width 16.0 H, Calcium Level 7.3 L Vital Signs Date Time Temp Pulse Resp B/P (MAP) Pulse Ox O2 Delivery O2 Flow Rate FiO2 06/18/18 08:00 98.4 78 22 139/65 (89) 97 4.0 06/18/18 05:00 Nasal Cannula I&O- Last 24 Hours up to 6 AM 06/18/18 06:00 Intake Total 340 ml Output Total 975 ml Balance -635 ml GME ATTESTATION GME ATTESTATION My faculty preceptor for this patient encounter was physically present during the encounter and was fully available. All aspects of the patient interview, examination, medical decision making process, and medical care plan development were reviewed and approved by the faculty preceptor. The faculty preceptor is aware and concurs with the plan as stated in the body of this note and will attest to such by his/her cosignature. DEEPAK GOMES DO Jun 18, 2018 09:43
[2018-06-18] MEDS: TAMSULOSIN 0.4 MG CAP PO SCH (21:14)
[2018-06-18] MEDS: ATORVASTATIN 10 MG TAB PO SCH (21:14)
[2018-06-19] VITALS (23 sets, daily range): BP systolic 102–141; BP diastolic 42–65; O2SAT 87–99
[2018-06-19] MEDS: IPRATROPIUM 0.5MG/ALBUTEROL 2.5MG INH SOL UD 3ML (DUONEB)(J7620) NEB PRN ×2 (01:08→09:42)
[2018-06-19] MEDS: SLF 3 ML SYR IV SCH ×3 (06:00→21:51)
[2018-06-19] MEDS: METOPROLOL TART 25 MG TABLET PO SCH ×3 (06:03→21:50)
[2018-06-19] MEDS: CEFEPIME HCL 1 GM in D5W MINI-BAG PLUS 50 ML IV SCH (06:03)
[2018-06-19 06:18] LABS: HEMATOCRIT 25.9 % (42.0-52.0); HEMOGLOBIN 8.6 g/dl (13.5-17.5); MEAN CORPUSCULAR HEMOGLOBIN 28.5 pg (27.0-33.0); MEAN CORPUSCULAR HGB CONC 33.2 g/dl (32.0-36.5); MEAN CORPUSCULAR VOLUME 85.8 fl (80.0-96.0); PLATELET COUNT, AUTOMATED 179 10^3/uL (150-450); RED BLOOD COUNT 3.02 10^6/uL (4.30-6.10); WHITE BLOOD COUNT 11.3 10^3/uL (4.0-10.0)
[2018-06-19 06:40] LABS: BLOOD UREA NITROGEN 20 MG/DL (7-18); C REACTIVE PROTEIN QUANTITATIV 5.68 MG/DL (0.00-0.30); CALCIUM LEVEL 7.2 MG/DL (8.8-10.2); CARBON DIOXIDE LEVEL 25 MEQ/L (21-32); CHLORIDE LEVEL 99 MEQ/L (98-107); CREATININE FOR GFR 0.92 MG/DL (0.70-1.30); GLOMERULAR FILTRATION RATE > 60.0 (>35); GLUCOSE, FASTING 88 MG/DL (70-100); MAGNESIUM LEVEL 2.1 MG/DL (1.8-2.4); POTASSIUM SERUM 5.2 MEQ/L (3.5-5.1); SODIUM LEVEL 128 MEQ/L (136-145)
[2018-06-19] MEDS: SYMBICORT 160/4.5MCG INHALER 6GM INH SCH ×2 (07:25→20:24)
[2018-06-19] MEDS: ENOXAPARIN 80 MG/0.8 ML SYRINGE (J1650) SC SCH ×2 (09:27→21:50)
[2018-06-19] MEDS: predniSONE 5 MG TAB PO SCH (09:27)
[2018-06-19] MEDS: ASPIRIN 81 MG ENTERIC TAB PO SCH (09:28)
[2018-06-19] MEDS: PANTOPRAZOLE 40MG TAB (PROTONIX) PO SCH (09:28)
[2018-06-19] MEDS: LORATADINE 10 MG TAB PO SCH (09:28)
[2018-06-19] MEDS: MAGNESIUM OXIDE 400 MG TAB (MAG-OX) PO SCH ×2 (09:28→21:51)
[2018-06-19] MEDS: FLUCONAZOLE 100 MG TAB PO SCH (09:28)
[2018-06-19] MEDS: MELOXICAM (MOBIC) 7.5 MG TAB PO SCH (09:28)
[2018-06-19] MEDS: IPRATROPIUM 0.5MG/ALBUTEROL 2.5MG INH SOL UD 3ML (DUONEB)(J7620) NEB SCH ×3 (10:55→20:00)
--- NOTE | 2018-06-19 13:02 | REP ---
Chest two views HISTORY: Shortness of breath Comparison: 06/14/2018 The density is present in the right lower lobe consistent with an infiltrate that is decreased compared to the previous study. Small bilateral pleural effusions are present. The heart is normal in size. The pulmonary vasculature is normal in appearance. The bony structure is intact. IMPRESSION: 1. Right lower lobe infiltrate decreased compared to the previous study. 2. Small bilateral pleural effusions. Electronically Signed by Jaren Burgess MD 06/19/2018 12:54 P
[2018-06-19 13:48] LABS: ABG BASE EXCESS 0.1 (-2.0-2.0); ABG O2 SATURATION 94.5 % (95.0-99.0); ABG PARTIAL PRESSURE CO2 35.8 mmHg (35.0-45.0); ABG PARTIAL PRESSURE O2 72.3 mmHg (75.0-100.0); ABG STANDARD HCO3 24.6 MEQ/L (22.0-26.0); ABG TOTAL CO2 25.1 MEQ/L (23.0-31.0); ABG pH (ARTERIAL) 7.444 UNITS (7.350-7.450)
[2018-06-19] MEDS: MEROPENEM INJ 1 GM in APPROPRIATE DILUENT 1 EA IV SCH ×2 (13:53→21:50)
[2018-06-19] MEDS ORDERED: methylPREDNISolone INJ 125 MG/2 ML VIAL (J2930) IV SCH (16:00)
--- NOTE | 2018-06-19 16:34 | IPNPDOC ---
Text Note Date of Service The patient was seen on 06/19/18. NOTE SUBJECTIVE: Pt examined sitting up in chair after DuoNeb tx. Feels the same as yesterday. Not much improvement. Still has clear phlegm. No f/c, n/v, abd pain. OBJECTIVE: VITAL SIGNS: Listed below. GENERAL: Alert and awake. Conversant. NAD HEENT: Normocephalic, atraumatic. EOMI, anicteric sclera CARDIOVASCULAR: Irregularly irregular LUNGS: Decreased breath sounds with diffuse wheezing and rhonchi. Is on his baseline 4L NC ABDOMEN: Soft, nontender and nondistended EXTREMITIES: No clubbing or cyanosis LABORATORY DATA: Listed below. ASSESSMENT AND PLAN: --Pseudomonas Pneumonia * Due to lack of clinical improvement, will switch from cefepime to meropenem based on sensitivities from sputum culture. Started abx 06/15. He continues to have clear sputum production and is requiring an increase in his oxygen de hi, up to 5-6 L today from his baseline 4 L nasal cannula. Will also start on IV Solu-Medrol, and encourage incentive spirometry and Acapella. Will obtain a repeat chest x-ray and ABG. * Overall, he remains afebrile and white count is stable at 10-11 * continue duoneb and symbicort --Urinary tract infection 2/2 chronic indwelling Sam catheter. * Urine culture +yeast organism. Continue Diflucan started 06/12 --Hyponatremia * Na at 128 this am * Appears euvolemic on exam. Will obtain BNP & CXR to better assess fluid status. Considering his hx of systolic & diastolic CHF, will avoid adding fluids currently till they result. --Near syncope * Multifactorial: UTI, pneumonia, Lopressor requiring dose adjustment for orthostatic hypotension. * Pt gradually improving. Continue physical therapy. --Orthostatic hypotension in setting of baseline HTN * Home Lasix and lisinopril on hold. Sx improved since Lopressor dose adjusted * Pt is on po Lasix & Lisinopril at home for systolic and diastolic CHF. Continue holding until back to baseline functioning. Is euvolemic currently --Chronic atrial fibrillation with hx of PE * rate controlled on po lopressor after dosages adjusted from home dose of 50mg daily to 25mg q8h * continue lovenox in lieu of his home edoxaban, which we do not carry on formulary --History of pulmonary embolism * Chronically anticoagulated. On Lovenox inpatient. --Systolic and diastolic dysfunction * EF 45-50% as of 06/07/1819. Grade 1 diastolic dysfunction with mild LVH * Diuretic & ACEi on hold due to hypotension and dizziness. Continue monitoring fluid status closely and consider resuming once more stable --COPD * on baseline, 4L NC. Maintain Oxygen sat between 88-92% and continue home nebs --Rheumatoid arthritis & Discoid Lupus * [facility] * Home methotrexate and Plaquenil on hold as he is being treated for active infections: PNA and UTI --BPH * continue home Flomax --GERD * continue po PPI --Dyslipidemia * continue home statin and ASA DVT ppx: on Lovenox. DISPOSITION: pending PT and clinical improvement. VS,Fishbone, I+O VS, Fishbone, I+O Laboratory Tests 06/19/18 05:58 Red Blood Count 3.02 L, Mean Corpuscular Volume 85.8, Mean Corpuscular Hemoglobin 28.5, Mean Corpuscular Hemoglobin Concent 33.2, Red Cell Distribution Width 16.4 H, Calcium Level 7.2 L Vital Signs Date Time Temp Pulse Resp B/P (MAP) Pulse Ox O2 Delivery O2 Flow Rate FiO2 06/19/18 13:52 80 120/48 06/19/18 12:00 4.0 06/19/18 12:00 97 Nasal Cannula 06/19/18 12:00 98.8 22 I&O- Last 24 Hours up to 6 AM 06/19/18 06:00 Intake Total 780 ml Output Total 975 ml Balance -195 ml GME ATTESTATION GME ATTESTATION My faculty preceptor for this patient encounter was physically present during the encounter and was fully available. All aspects of the patient interview, examination, medical decision making process, and medical care plan development were reviewed and approved by the faculty preceptor. The faculty preceptor is aware and concurs with the plan as stated in the body of this note and will attest to such by his/her cosignature. DEEPAK GOMES DO Jun 19, 2018 16:34
[2018-06-19] MEDS: methylPREDNISolone INJ 40 MG/1 ML VIAL (J2920) IV SCH (17:03)
[2018-06-19] MEDS: TAMSULOSIN 0.4 MG CAP PO SCH (21:51)
[2018-06-19] MEDS: ATORVASTATIN 10 MG TAB PO SCH (21:51)
[2018-06-19 22:15] LABS: NT-PRO BNP 5555 PG/ML (<450)
[2018-06-20] VITALS (19 sets, daily range): BP systolic 129–170; BP diastolic 60–77; O2SAT 87–97
[2018-06-20] MEDS: IPRATROPIUM 0.5MG/ALBUTEROL 2.5MG INH SOL UD 3ML (DUONEB)(J7620) NEB SCH ×7 (00:07→23:28)
[2018-06-20] MEDS: methylPREDNISolone INJ 40 MG/1 ML VIAL (J2920) IV SCH ×2 (05:00→16:52)
[2018-06-20] MEDS: MEROPENEM INJ 1 GM in APPROPRIATE DILUENT 1 EA IV SCH ×3 (05:00→21:28)
[2018-06-20] MEDS: SLF 3 ML SYR IV SCH ×3 (05:01→21:29)
[2018-06-20] MEDS: METOPROLOL TART 25 MG TABLET PO SCH ×3 (05:01→21:26)
[2018-06-20 06:10] LABS: HEMOGLOBIN 8.3 g/dl (13.5-17.5); MEAN CORPUSCULAR HEMOGLOBIN 27.9 pg (27.0-33.0); MEAN CORPUSCULAR HGB CONC 33.2 g/dl (32.0-36.5); MEAN CORPUSCULAR VOLUME 84.2 fl (80.0-96.0); PLATELET COUNT, AUTOMATED 181 10^3/uL (150-450); RED BLOOD COUNT 2.97 10^6/uL (4.30-6.10); WHITE BLOOD COUNT 7.7 10^3/uL (4.0-10.0)
[2018-06-20 06:31] LABS: BLOOD UREA NITROGEN 22 MG/DL (7-18); CALCIUM LEVEL 7.4 MG/DL (8.8-10.2); CARBON DIOXIDE LEVEL 26 MEQ/L (21-32); CHLORIDE LEVEL 98 MEQ/L (98-107); GLOMERULAR FILTRATION RATE > 60.0 (>35); GLUCOSE, FASTING 154 MG/DL (70-100); MAGNESIUM LEVEL 2.4 MG/DL (1.8-2.4); POTASSIUM SERUM 4.8 MEQ/L (3.5-5.1); SODIUM LEVEL 130 MEQ/L (136-145)
[2018-06-20] MEDS: SYMBICORT 160/4.5MCG INHALER 6GM INH SCH ×2 (07:13→20:51)
[2018-06-20] MEDS ORDERED: FUROSEMIDE 40 MG/4 ML VIAL (J1940) IV ONE (08:15)
[2018-06-20] MEDS: MAGNESIUM OXIDE 400 MG TAB (MAG-OX) PO SCH ×2 (09:29→21:28)
[2018-06-20] MEDS: MELOXICAM (MOBIC) 7.5 MG TAB PO SCH (09:29)
[2018-06-20] MEDS: PANTOPRAZOLE 40MG TAB (PROTONIX) PO SCH (09:30)
[2018-06-20] MEDS: LORATADINE 10 MG TAB PO SCH (09:30)
[2018-06-20] MEDS: ASPIRIN 81 MG ENTERIC TAB PO SCH (09:30)
[2018-06-20] MEDS: LISINOPRIL 10 MG TAB PO SCH (09:30)
[2018-06-20] MEDS: predniSONE 5 MG TAB PO SCH (09:30)
[2018-06-20] MEDS: FLUCONAZOLE 100 MG TAB PO SCH (09:30)
[2018-06-20] MEDS: ENOXAPARIN 80 MG/0.8 ML SYRINGE (J1650) SC SCH ×2 (09:31→21:28)
--- NOTE | 2018-06-20 11:12 | IPNPDOC ---
Date Seen The patient was seen on 06/20/18. Progress Note SUBJECTIVE: Pt examined at bedside. No events overnight. Feels about the same as yesterday. Labs overall are improving. Still has clear phlegm. No f/c, n/v, abd pain. OBJECTIVE: VITAL SIGNS: Listed below. GENERAL: Alert and awake. Conversant. NAD HEENT: Normocephalic, atraumatic. EOMI, anicteric sclera CARDIOVASCULAR: Irregularly irregular LUNGS: Decreased breath sounds throughout. Less wheezing and rhonchi than yesterday. Is on his baseline 4L NC ABDOMEN: Soft, nontender and nondistended EXTREMITIES: No clubbing or cyanosis LABORATORY DATA: Listed below. ASSESSMENT AND PLAN: --Pseudomonas Pneumonia * Doing better since meds adjusted yesterday. Continue meropenem & IV Solumedrol & acapella & IS. Started abx 06/15. * He continues to have clear sputum production, and is back to baseline 4L NC. * Continues to be afebrile and WBC & CRP improving * continue duoneb and symbicort --Urinary tract infection 2/2 chronic indwelling Sam catheter. * Urine culture +yeast organism. Continue Diflucan started 06/12 --Hyponatremia * Na up from 128 to 130 this am * BNP >5000 & CXR with pleural effusions suggest fluid overload. Will resume Lasix, which was initially held 2/2 hypotension. Na expected to improve with diuresis --Systolic and diastolic dysfunction * EF 45-50% as of 06/07/1819. Grade 1 diastolic dysfunction with mild LVH * Will resume Lasix & Lisinopril given pleural effusions on cxr and bnp. Previously held due to hypotension and dizziness --Near syncope * Multifactorial: UTI, pneumonia, Lopressor requiring dose adjustment for orthostatic hypotension. * Pt gradually improving. Continue physical therapy. --Orthostatic hypotension in setting of baseline HTN * resolved after holding home Lasix and lisinopril, & adjusting Lopressor dose --Chronic atrial fibrillation with hx of PE * rate controlled on po lopressor after dosages adjusted from home dose of 50mg daily to 25mg q8h * continue lovenox in lieu of his home edoxaban, which we do not carry on formulary --History of pulmonary embolism * Chronically anticoagulated. On Lovenox inpatient. --COPD * on baseline, 4L NC. Maintain Oxygen sat between 88-92% and continue home nebs --Rheumatoid arthritis & Discoid Lupus * [facility] * Home methotrexate and Plaquenil on hold as he is being treated for active infections: PNA and UTI --BPH * continue home Flomax --GERD * continue po PPI --Dyslipidemia * continue home statin and ASA DVT ppx: on Lovenox. DISPOSITION: pending PT and clinical improvement. VS, I&O, 24H, Fishbone Vital Signs/I&O Vital Signs Date Time Temp Pulse Resp B/P (MAP) Pulse Ox O2 Delivery O2 Flow Rate FiO2 06/20/18 09:30 142/60 06/20/18 08:00 96.8 75 17 91 4.0 06/20/18 05:00 Nasal Cannula I&O- Last 24 Hours up to 6 AM0 06/20/18 06:00 Intake Total 940 ml Output Total 1200 ml Balance -260 ml Laboratory Data 24H LABS Laboratory Tests 2 06/19/18 13:29: Blood Gas Bicarbonate Standard 24.6, Arterial Blood pH 7.444, Arterial Blood Partial Pressure CO2 35.8, Arterial Blood Partial Pressure O2 72.3L, Arterial Blood Total CO2 25.1, Arterial Blood HCO3 24.0, Arterial Blood Base Excess 0.1, Arterial Blood Oxygen Saturation 94.5L 06/20/18 05:54: Nucleated Red Blood Cells % (auto) 0.0, Anion Gap 6L, Glomerular Filtration Rate > 60.0, Blood Urea Nitrogen 22H, Creatinine 1.00, Sodium Level 130L, Potassium Level 4.8, Chloride Level 98, Carbon Dioxide Level 26, Calcium Level 7.4L, Magnesium Level 2.4 CBC/BMP Laboratory Tests 06/20/18 05:54 Red Blood Count 2.97 L, Mean Corpuscular Volume 84.2, Mean Corpuscular Hemoglobin 27.9, Mean Corpuscular Hemoglobin Concent 33.2, Red Cell Distribution Width 16.0 H, Calcium Level 7.4 L Microbiology Microbiology 06/14/18 Blood Culture - Final, Complete NO GROWTH AFTER 5 DAYS 06/15/18 MRSA Screen - Final, Complete 06/13/18 Gram Stain - Final, Complete 06/13/18 Sputum Culture - Final, Complete Pseudomonas Aeruginosa Mucoid GME ATTESTATION GME ATTESTATION My faculty preceptor for this patient encounter was physically present during the encounter and was fully available. All aspects of the patient interview, examination, medical decision making process, and medical care plan development were reviewed and approved by the faculty preceptor. The faculty preceptor is aware and concurs with the plan as stated in the body of this note and will atte st to such by his/her cosignature. DEEPAK GOMES DO Jun 20, 2018 11:12
[2018-06-20] MEDS: ATORVASTATIN 10 MG TAB PO SCH (21:28)
[2018-06-20] MEDS: TAMSULOSIN 0.4 MG CAP PO SCH (21:29)
[2018-06-21] VITALS (11 sets, daily range): BP systolic 128–143; BP diastolic 52–70; O2SAT 86–97
[2018-06-21] MEDS: IPRATROPIUM 0.5MG/ALBUTEROL 2.5MG INH SOL UD 3ML (DUONEB)(J7620) NEB SCH ×6 (03:48→23:53)
[2018-06-21] MEDS: methylPREDNISolone INJ 40 MG/1 ML VIAL (J2920) IV SCH ×2 (04:58→16:57)
[2018-06-21] MEDS: SLF 3 ML SYR IV SCH ×3 (06:00→21:24)
[2018-06-21] MEDS: METOPROLOL TART 25 MG TABLET PO SCH ×3 (06:01→21:24)
[2018-06-21] MEDS: MEROPENEM INJ 1 GM in APPROPRIATE DILUENT 1 EA IV SCH ×3 (06:01→21:23)
[2018-06-21 06:03] LABS: MEAN CORPUSCULAR HEMOGLOBIN 28.1 pg (27.0-33.0); MEAN CORPUSCULAR HGB CONC 33.3 g/dl (32.0-36.5); MEAN CORPUSCULAR VOLUME 84.2 fl (80.0-96.0); PLATELET COUNT, AUTOMATED 194 10^3/uL (150-450); RED BLOOD COUNT 2.85 10^6/uL (4.30-6.10); WHITE BLOOD COUNT 15.6 10^3/uL (4.0-10.0)
[2018-06-21 06:30] LABS: BLOOD UREA NITROGEN 35 MG/DL (7-18); CALCIUM LEVEL 7.5 MG/DL (8.8-10.2); CARBON DIOXIDE LEVEL 27 MEQ/L (21-32); CHLORIDE LEVEL 98 MEQ/L (98-107); CREATININE FOR GFR 1.21 MG/DL (0.70-1.30); GLOMERULAR FILTRATION RATE > 60.0 (>35); GLUCOSE, FASTING 148 MG/DL (70-100); MAGNESIUM LEVEL 2.5 MG/DL (1.8-2.4); POTASSIUM SERUM 4.7 MEQ/L (3.5-5.1); SODIUM LEVEL 132 MEQ/L (136-145)
[2018-06-21] MEDS: SYMBICORT 160/4.5MCG INHALER 6GM INH SCH ×2 (07:08→21:43)
[2018-06-21] MEDS: FLUCONAZOLE 100 MG TAB PO SCH (08:32)
[2018-06-21] MEDS: LORATADINE 10 MG TAB PO SCH (08:32)
[2018-06-21] MEDS: ASPIRIN 81 MG ENTERIC TAB PO SCH (08:33)
[2018-06-21] MEDS: MELOXICAM (MOBIC) 7.5 MG TAB PO SCH (08:33)
[2018-06-21] MEDS: PANTOPRAZOLE 40MG TAB (PROTONIX) PO SCH (08:33)
[2018-06-21] MEDS: LISINOPRIL 10 MG TAB PO SCH (08:33)
[2018-06-21] MEDS: FUROSEMIDE 20 MG TAB PO SCH (08:34)
[2018-06-21] MEDS: ENOXAPARIN 80 MG/0.8 ML SYRINGE (J1650) SC SCH ×2 (08:34→21:24)
[2018-06-21] MEDS: predniSONE 5 MG TAB PO SCH (08:34)
[2018-06-21] MEDS: MAGNESIUM OXIDE 400 MG TAB (MAG-OX) PO SCH ×2 (09:00→21:24)
[2018-06-21] MEDS: DOCUSATE SODIUM 100 MG CAP PO SCH ×2 (10:41→21:24)
--- NOTE | 2018-06-21 19:39 | IPNPDOC ---
Date Seen The patient was seen on 06/21/18. Progress Note SUBJECTIVE: Pt examined at bedside. No events overnight. Feels much improved today. No reported events overnt. No f/c, n/v, abd pain. OBJECTIVE: VITAL SIGNS: Listed below. GENERAL: Alert and awake. Conversant. NAD HEENT: Normocephalic, atraumatic. EOMI, anicteric sclera CARDIOVASCULAR: Irregularly irregular LUNGS: Decreased breath sounds throughout. Mild wheezing throughout. Is on his baseline 4L NC ABDOMEN: Soft, nontender and nondistended EXTREMITIES: No clubbing or cyanosis LABORATORY DATA: Listed below. ASSESSMENT AND PLAN: --Pseudomonas Pneumonia * Doing better since meds adjusted. Continue meropenem & IV Solumedrol & acapella & IS. Started abx 06/15. * Sputum production is improving, and is back to baseline 4L NC. * continue duoneb and symbicort --Urinary tract infection 2/2 chronic indwelling Sam catheter. * Urine culture +yeast organism. Continue Diflucan started 06/12 --Hyponatremia * Improving from 130 to 132 today after lasix and lisinopril restarted for CHF, and given IV lasix 40mg x1 yesterday due to elevated BNP & CXR with pleural effusions * expect it gradually improve as excess volume is removed (lasix & lisinopril were initially on hold due to hypotension & dizziness on admission) --Leukocytosis * WBC ana from 7 to 15 today, likely 2/2 steroids. No fever, and overall feels better. Continue monitoring --Systolic and diastolic dysfunction * EF 45-50% as of 06/07/1819. Grade 1 diastolic dysfunction with mild LVH * Continue Lasix & Lisinopril --Near syncope * Multifactorial: UTI, pneumonia, Lopressor requiring dose adjustment for orthostatic hypotension. Is improved and stable now * Continue physical therapy. --Orthostatic hypotension in setting of baseline HTN * resolved after holding home Lasix and lisinopril, & adjusting Lopressor dose * meds resumed --Chronic atrial fibrillation with hx of PE * rate controlled on po lopressor after dosages adjusted from home dose of 50mg daily to 25mg q8h * continue lovenox in lieu of his home edoxaban, which we do not carry on formulary --History of pulmonary embolism * Chronically anticoagulated. On Lovenox inpatient. --COPD * on baseline, 4L NC. Maintain Oxygen sat between 88-92% and continue home nebs --Rheumatoid arthritis & Discoid Lupus * [facility] * Home methotrexate and Plaquenil on hold as he is being treated for active infections: PNA and UTI --BPH * continue home Flomax --GERD * continue po PPI --Dyslipidemia * continue home statin and ASA DVT ppx: on Lovenox. DISPOSITION: pending PT and clinical improvement. VS, I&O, 24H, Fishbone Vital Signs/I&O Vital Signs Date Time Temp Pulse Resp B/P (MAP) Pulse Ox O2 Delivery O2 Flow Rate FiO2 06/21/18 17:00 4.0 06/21/18 16:00 96.8 68 18 134/65 (88) 95 06/21/18 13:00 Nasal Cannula I&O- Last 24 Hours up to 6 AM 06/21/18 06:00 Intake Total 360 ml Output Total 1125 ml Balance -765 ml Laboratory Data 24H LABS Laboratory Tests 2 06/21/18 05:43: Nucleated Red Blood Cells % (auto) 0.0, Anion Gap 7L, Glomerular Filtration Rate > 60.0, Blood Urea Nitrogen 35#H, Creatinine 1.21, Sodium Level 132L, Potassium Level 4.7, Chloride Level 98, Carbon Dioxide Level 27, Calcium Level 7.5L, Magnesium Level 2.5H CBC/BMP Laboratory Tests 06/21/18 05:43 Red Blood Count 2.85 L, Mean Corpuscular Volume 84.2, Mean Corpuscular Hemoglobin 28.1, Mean Corpuscular Hemoglobin Concent 33.3, Red Cell Distribution Width 16.1 H, Calcium Level 7.5 L Microbiology Microbiology 06/14/18 Blood Culture - Final, Complete NO GROWTH AFTER 5 DAYS 06/15/18 MRSA Screen - Final, Complete 06/13/18 Gram Stain - Final, Complete 06/13/18 Sputum Culture - Final, Complete Pseudomonas Aeruginosa Mucoid GME ATTESTATION GME ATTESTATION My faculty preceptor for this patient encounter was physically present during the encounter and was fully available. All aspects of the patient interview, e xamination, medical decision making process, and medical care plan development were reviewed and approved by the faculty preceptor. The faculty preceptor is aware and concurs with the plan as stated in the body of this note and will attest to such by his/her cosignature. DEEPAK GOMES DO Jun 21, 2018 19:39
[2018-06-21] MEDS: ATORVASTATIN 10 MG TAB PO SCH (21:24)
[2018-06-21] MEDS: TAMSULOSIN 0.4 MG CAP PO SCH (21:24)
[2018-06-22] VITALS: BP 168/79
[2018-06-22 04:00] VITALS: BP 148/60
[2018-06-22] MEDS: methylPREDNISolone INJ 40 MG/1 ML VIAL (J2920) IV SCH ×2 (04:22→15:07)
[2018-06-22] MEDS: IPRATROPIUM 0.5MG/ALBUTEROL 2.5MG INH SOL UD 3ML (DUONEB)(J7620) NEB SCH ×6 (04:41→23:23)
[2018-06-22] MEDS: METOPROLOL TART 25 MG TABLET PO SCH ×3 (05:28→21:36)
[2018-06-22] MEDS: SLF 3 ML SYR IV SCH ×3 (05:34→21:38)
[2018-06-22] MEDS: MEROPENEM INJ 1 GM in APPROPRIATE DILUENT 1 EA IV SCH (05:34)
[2018-06-22 05:39] LABS: HEMATOCRIT 24.7 % (42.0-52.0); HEMOGLOBIN 8.1 g/dl (13.5-17.5); MEAN CORPUSCULAR HEMOGLOBIN 28.3 pg (27.0-33.0); MEAN CORPUSCULAR HGB CONC 32.8 g/dl (32.0-36.5); MEAN CORPUSCULAR VOLUME 86.4 fl (80.0-96.0); PLATELET COUNT, AUTOMATED 183 10^3/uL (150-450); RED BLOOD COUNT 2.86 10^6/uL (4.30-6.10)
[2018-06-22 05:57] LABS: BLOOD UREA NITROGEN 37 MG/DL (7-18); CALCIUM LEVEL 7.6 MG/DL (8.8-10.2); CARBON DIOXIDE LEVEL 25 MEQ/L (21-32); CHLORIDE LEVEL 100 MEQ/L (98-107); CREATININE FOR GFR 1.19 MG/DL (0.70-1.30); GLOMERULAR FILTRATION RATE > 60.0 (>35); GLUCOSE, FASTING 128 MG/DL (70-100); MAGNESIUM LEVEL 2.3 MG/DL (1.8-2.4); POTASSIUM SERUM 4.7 MEQ/L (3.5-5.1); SODIUM LEVEL 131 MEQ/L (136-145)
[2018-06-22] MEDS: SYMBICORT 160/4.5MCG INHALER 6GM INH SCH ×2 (07:22→21:01)
[2018-06-22 08:00] VITALS: BP 134/62
[2018-06-22] MEDS: ASPIRIN 81 MG ENTERIC TAB PO SCH (08:45)
[2018-06-22] MEDS: ENOXAPARIN 80 MG/0.8 ML SYRINGE (J1650) SC SCH ×2 (08:45→21:34)
[2018-06-22] MEDS: FLUCONAZOLE 100 MG TAB PO SCH (08:45)
[2018-06-22] MEDS: LISINOPRIL 10 MG TAB PO SCH (08:46)
[2018-06-22] MEDS: LORATADINE 10 MG TAB PO SCH (08:46)
[2018-06-22] MEDS: MELOXICAM (MOBIC) 7.5 MG TAB PO SCH (08:46)
[2018-06-22] MEDS: PANTOPRAZOLE 40MG TAB (PROTONIX) PO SCH (08:46)
[2018-06-22] MEDS: FUROSEMIDE 20 MG TAB PO SCH (08:46)
[2018-06-22] MEDS: predniSONE 5 MG TAB PO SCH (08:46)
[2018-06-22] MEDS: DOCUSATE SODIUM 100 MG CAP PO SCH ×2 (08:47→21:35)
[2018-06-22] MEDS: MAGNESIUM OXIDE 400 MG TAB (MAG-OX) PO SCH ×2 (08:47→21:34)
[2018-06-22] MEDS: IPRATROPIUM 0.5MG/ALBUTEROL 2.5MG INH SOL UD 3ML (DUONEB)(J7620) NEB PRN ×2 (09:00→13:47)
[2018-06-22 12:00] VITALS: BP 130/62
--- NOTE | 2018-06-22 13:53 | IPNPDOC ---
Date Seen The patient was seen on 06/22/18. Progress Note SUBJECTIVE: Pt examined at bedside. No events overnight. Not much change from yesterday. Continues on abx and in PT. No f/c, n/v, abd pain. OBJECTIVE: VITAL SIGNS: Listed below. GENERAL: Alert and awake. Conversant. NAD HEENT: Normocephalic, atraumatic. EOMI, anicteric sclera CARDIOVASCULAR: RRR, in NSR today on monitor compared to AFib other days LUNGS: Decreased breath sounds throughout. Mild rhonchi and wheezing throughout. Is on his baseline 4L NC ABDOMEN: Soft, nontender and nondistended EXTREMITIES: No clubbing or cyanosis or edema LABORATORY DATA: Listed below. ASSESSMENT AND PLAN: --Pseudomonas Pneumonia * Continues to gradually improve. Will switch from IV meropenem to po cefdinir. Initially started on abx 06/15. * Continue IV Solumedrol & acapella & IS * is back to baseline 4L NC, but still feeling sob and coughing with phlegm * continue duoneb and symbicort --Urinary tract infection 2/2 chronic indwelling Sam catheter. * Urine culture +yeast organism. Continue Diflucan for 10-14 days, started 06/12 --Hyponatremia * Is stable ~130. Not much improvement since lasix and lisinopril restarted for CHF, due to elevated BNP & CXR with pleural effusions * is asymptomatic. Continue monitoring. Appears euvolemic on exam --Leukocytosis * WBC at 16 today, likely 2/2 steroids. No fever, and overall feels better. C ontinue monitoring --Systolic and diastolic dysfunction * EF 45-50% as of 06/07/1819. Grade 1 diastolic dysfunction with mild LVH * Continue Lasix & Lisinopril --Near syncope * Multifactorial: UTI, pneumonia, Lopressor requiring dose adjustment for orthostatic hypotension. Is improved and stable now * Continue physical therapy & OT. --Orthostatic hypotension in setting of baseline HTN * resolved after holding home Lasix and lisinopril, & adjusting Lopressor dose * meds resumed --Chronic atrial fibrillation with hx of PE * rate controlled on po lopressor after dosages adjusted from home dose of 50mg daily to 25mg q8h * continue lovenox in lieu of his home edoxaban, which we do not carry on formulary --History of pulmonary embolism * Chronically anticoagulated. On Lovenox inpatient. --COPD * on baseline, 4L NC. Maintain Oxygen sat between 88-92% and continue home nebs --Rheumatoid arthritis & Discoid Lupus * Verified per [facility] records in chart * Home methotrexate and Plaquenil on hold as he is being treated for active infections: PNA and UTI --BPH * continue home Flomax --GERD * continue po PPI --Dyslipidemia * continue home statin and ASA DVT ppx: on Lovenox. DISPOSITION: pending PT/OT and clinical improvement. Will downgrade to Med Surg. VS, I&O, 24H, Fishbone Vital Signs/I&O Vital Signs Date Time Temp Pulse Resp B/P (MAP) Pulse Ox O2 Delivery O2 Flow Rate FiO2 06/22/18 11:50 4.0 06/22/18 08:46 134/62 06/22/18 08:00 97.0 70 18 94 06/21/18 13:00 Nasal Cannula I&O- Last 24 Hours up to 6 AM 06/22/18 06:00 Intake Total 1260 ml Output Total 1075 ml Balance 185 ml Laboratory Data 24H LABS Laboratory Tests 2 06/22/18 04:48: Nucleated Red Blood Cells % (auto) 0.0, Anion Gap 6L, Glomerular Filtration Rate > 60.0, Blood Urea Nitrogen 37H, Creatinine 1.19, Sodium Level 131L, Potassium Level 4.7, Chloride Level 100, Carbon Dioxide Level 25, Calcium Level 7.6L, Magnesium Level 2.3 CBC/BMP Laboratory Tests 06/22/18 04:48 Red Blood Count 2.86 L, Mean Corpuscular Volume 86.4, Mean Corpuscular Hemoglobin 28.3, Mean Corpuscular Hemoglobin Concent 32.8, Red Cell Distribution Width 16.5 H, Calcium Level 7.6 L Microbiology Microbiology 06/14/18 Blood Culture - Final, Complete NO GROWTH AFTER 5 DAYS 06/15/18 MRSA Screen - Final, Complete 06/13/18 Gram Stain - Final, Complete 06/13/18 Sputum Culture - Final, Complete Pseudomonas Aeruginosa Mucoid GME ATTESTATION GME ATTESTATION My faculty preceptor for this patient encounter was physically present during the encounter and was fully available. All aspects of the patient interview, examination, medical decision making process, and medical care plan development were reviewed and approved by the faculty preceptor. The faculty preceptor is aware and concurs with the plan as stated in the body of this note and will attest to such by his/her cosignature. DEEPAK GOMES DO Jun 22, 2018 13:53
[2018-06-22] MEDS: CEFDINIR 300 MG CAP (OMNICEF) PO SCH ×2 (15:07→21:34)
[2018-06-22 17:15] VITALS: BP 161/73
[2018-06-22] MEDS: TAMSULOSIN 0.4 MG CAP PO SCH (21:37)
[2018-06-22] MEDS: ATORVASTATIN 10 MG TAB PO SCH (21:37)
[2018-06-22 22:00] VITALS: BP 156/70
[2018-06-23 02:03] VITALS: O2SAT 99
[2018-06-23] MEDS: IPRATROPIUM 0.5MG/ALBUTEROL 2.5MG INH SOL UD 3ML (DUONEB)(J7620) NEB SCH ×6 (03:10→23:23)
[2018-06-23] MEDS: METOPROLOL TART 25 MG TABLET PO SCH ×3 (05:40→21:13)
[2018-06-23] MEDS: methylPREDNISolone INJ 40 MG/1 ML VIAL (J2920) IV SCH ×2 (05:40→15:32)
[2018-06-23] MEDS: SLF 3 ML SYR IV SCH ×3 (05:40→21:15)
[2018-06-23 06:00] VITALS: BP 148/58; O2SAT 100
[2018-06-23] MEDS: SYMBICORT 160/4.5MCG INHALER 6GM INH SCH ×2 (08:13→20:09)
[2018-06-23] MEDS: FUROSEMIDE 20 MG TAB PO SCH (08:32)
[2018-06-23] MEDS: ASPIRIN 81 MG ENTERIC TAB PO SCH (08:32)
[2018-06-23] MEDS: LORATADINE 10 MG TAB PO SCH (08:32)
[2018-06-23] MEDS: predniSONE 5 MG TAB PO SCH (08:32)
[2018-06-23] MEDS: PANTOPRAZOLE 40MG TAB (PROTONIX) PO SCH (08:32)
[2018-06-23] MEDS: DOCUSATE SODIUM 100 MG CAP PO SCH ×2 (08:33→21:12)
[2018-06-23] MEDS: FLUCONAZOLE 100 MG TAB PO SCH (08:33)
[2018-06-23] MEDS: MAGNESIUM OXIDE 400 MG TAB (MAG-OX) PO SCH ×2 (08:33→21:14)
[2018-06-23] MEDS: LISINOPRIL 10 MG TAB PO SCH (08:33)
[2018-06-23] MEDS: CEFDINIR 300 MG CAP (OMNICEF) PO SCH ×2 (08:33→21:13)
[2018-06-23] MEDS: ENOXAPARIN 80 MG/0.8 ML SYRINGE (J1650) SC SCH ×2 (08:33→21:12)
[2018-06-23 10:45] VITALS: BP 146/72
[2018-06-23] MEDS: MELOXICAM (MOBIC) 7.5 MG TAB PO SCH (11:33)
[2018-06-23 12:30] VITALS: BP 167/72
[2018-06-23] MEDS: TAMSULOSIN 0.4 MG CAP PO SCH (21:13)
[2018-06-23] MEDS: ATORVASTATIN 10 MG TAB PO SCH (21:14)
[2018-06-23 22:00] VITALS: BP 146/57
--- NOTE | 2018-06-24 00:52 | IPNPDOC ---
Date Seen The patient was seen on 06/24/18. Progress Note SUBJECTIVE: Pt examined at bedside. No events overnight. Feeling better today. Continues on abx, IV steroids, and in PT. No f/c, n/v, abd pain. OBJECTIVE: VITAL SIGNS: Listed below. GENERAL: Alert and awake. Conversant. NAD HEENT: Normocephalic, atraumatic. EOMI, anicteric sclera CARDIOVASCULAR: RRR, in NSR today on monitor compared to AFib other days LUNGS: Decreased breath sounds throughout. Mild rhonchi throughout. Is on his baseline 4L NC ABDOMEN: Soft, nontender and nondistended EXTREMITIES: No clubbing or cyanosis or edema LABORATORY DATA: Listed below. ASSESSMENT AND PLAN: --Pseudomonas Pneumonia * Continues to gradually improve. Continue po cefdinir. Initially started on abx 06/15. * Continue IV Solumedrol & acapella & IS. Will switch to po prednisone tomorrow * is on baseline 4L NC, but still feeling sob and coughing with phlegm * continue duoneb and symbicort --Urinary tract infection 2/2 chronic indwelling Sam catheter. * Urine culture +yeast organism. Continue Diflucan for 10-14 days, started 06/12 --Hyponatremia * Is stable ~130. Not much improvement since lasix and lisinopril restarted for CHF, due to elevated BNP & CXR with pleural effusions * is asymptomatic. Continue monitoring. Appears euvolemic on exam --Leukocytosis * likely 2/2 steroids. No fever, and overall feels better. Continue monitoring --Systolic and diastolic dysfunction * EF 45-50% as of 06/07/1819. Grade 1 diastolic dysfunction with mild LVH * Continue Lasix & Lisinopril --Near syncope * Multifactorial: UTI, pneumonia, Lopressor requiring dose adjustment for orthostatic hypotension. Is improved and stable now * Continue physical therapy & OT. --Orthostatic hypotension in setting of baseline HTN * resolved after holding home Lasix and lisinopril, & adjusting Lopressor dose * meds resumed --Paroxysmal atrial fibrillation with hx of PE * rate controlled on po lopressor after dosages adjusted from home dose of 50mg daily to 25mg q8h * continue lovenox in lieu of his home edoxaban, which we do not carry on formulary --History of pulmonary embolism * Chronically anticoagulated. On Lovenox inpatient. --COPD * on baseline, 4L NC. Maintain Oxygen sat between 88-92% and continue home nebs --Rheumatoid arthritis & Discoid Lupus * Verified per [place] records in chart * Home methotrexate and Plaquenil on hold as he is being treated for active infections: PNA and UTI --BPH * continue home Flomax --GERD * continue po PPI --Dyslipidemia * continue home statin and ASA DVT ppx: on Lovenox. DISPOSITION: pending PT/OT and clinical improvement. VS, I&O, 24H, Fishbone Vital Signs/I&O Vital Signs Date Time Temp Pulse Resp B/P (MAP) Pulse Ox O2 Delivery O2 Flow Rate FiO2 06/23/18 23:13 Nasal Cannula 4.0 06/23/18 22:00 98.0 65 20 146/57 (86) 97 I&O- Last 24 Hours up to 6 AM 06/24/18 06:00 Intake Total 1050 ml Output Total 1375 ml Balance -325 ml Laboratory Data 24H LABS Laboratory Tests 2 06/23/18 06:06: Osmolality 288 Microbiology Microbiology 06/14/18 Blood Culture - Final, Complete NO GROWTH AFTER 5 DAYS 06/15/18 MRSA Screen - Final, Complete GME ATTESTATION GME ATTESTATION My faculty preceptor for this patient encounter was physically present during the encounter and was fully available. All aspects of the patient interview, examination, medical decision making process, and medical care plan development were reviewed and approved by the faculty preceptor. The faculty preceptor is aware and concurs with the plan as stated in the body of this note and will attest to such by his/her cosignature. DEEPAK GOMES DO Jun 24, 2018 00:52
[2018-06-24] MEDS: IPRATROPIUM 0.5MG/ALBUTEROL 2.5MG INH SOL UD 3ML (DUONEB)(J7620) NEB SCH ×6 (04:00→23:25)
[2018-06-24] MEDS: SLF 3 ML SYR IV SCH ×3 (05:23→21:13)
[2018-06-24] MEDS: METOPROLOL TART 25 MG TABLET PO SCH ×3 (05:23→21:13)
[2018-06-24 06:00] VITALS: BP 156/90
[2018-06-24 06:33] LABS: HEMATOCRIT 26.4 % (42.0-52.0); HEMOGLOBIN 8.5 g/dl (13.5-17.5); MEAN CORPUSCULAR HEMOGLOBIN 27.8 pg (27.0-33.0); MEAN CORPUSCULAR HGB CONC 32.2 g/dl (32.0-36.5); MEAN CORPUSCULAR VOLUME 86.3 fl (80.0-96.0); PLATELET COUNT, AUTOMATED 186 10^3/uL (150-450); RED BLOOD COUNT 3.06 10^6/uL (4.30-6.10); WHITE BLOOD COUNT 11.6 10^3/uL (4.0-10.0)
[2018-06-24 06:46] LABS: BLOOD UREA NITROGEN 32 MG/DL (7-18); CALCIUM LEVEL 7.6 MG/DL (8.8-10.2); CARBON DIOXIDE LEVEL 30 MEQ/L (21-32); CHLORIDE LEVEL 99 MEQ/L (98-107); CREATININE FOR GFR 0.98 MG/DL (0.70-1.30); GLOMERULAR FILTRATION RATE > 60.0 (>35); GLUCOSE, FASTING 120 MG/DL (70-100); POTASSIUM SERUM 4.3 MEQ/L (3.5-5.1); SODIUM LEVEL 134 MEQ/L (136-145)
[2018-06-24] MEDS: SYMBICORT 160/4.5MCG INHALER 6GM INH SCH ×2 (08:12→20:26)
[2018-06-24] MEDS: FLUCONAZOLE 100 MG TAB PO SCH (09:13)
[2018-06-24] MEDS: predniSONE 20 MG TAB PO SCH (09:13)
[2018-06-24] MEDS: DOCUSATE SODIUM 100 MG CAP PO SCH ×2 (09:13→21:00)
[2018-06-24] MEDS: CEFDINIR 300 MG CAP (OMNICEF) PO SCH ×2 (09:13→21:10)
[2018-06-24] MEDS: LORATADINE 10 MG TAB PO SCH (09:13)
[2018-06-24] MEDS: PANTOPRAZOLE 40MG TAB (PROTONIX) PO SCH (09:13)
[2018-06-24] MEDS: FUROSEMIDE 20 MG TAB PO SCH (09:13)
[2018-06-24] MEDS: predniSONE 5 MG TAB PO SCH (09:13)
[2018-06-24] MEDS: MELOXICAM (MOBIC) 7.5 MG TAB PO SCH (09:14)
[2018-06-24] MEDS: MAGNESIUM OXIDE 400 MG TAB (MAG-OX) PO SCH ×2 (09:14→21:04)
[2018-06-24] MEDS: ENOXAPARIN 80 MG/0.8 ML SYRINGE (J1650) SC SCH ×2 (09:14→21:05)
[2018-06-24] MEDS: LISINOPRIL 10 MG TAB PO SCH (09:14)
[2018-06-24] MEDS: ASPIRIN 81 MG ENTERIC TAB PO SCH (09:14)
--- NOTE | 2018-06-24 10:31 | IPNPDOC ---
Text Note Date of Service The patient was seen on 06/24/18. NOTE SUBJECTIVE: Pt examined at bedside. No events overnight. No medical complaints this morning. OBJECTIVE: VITAL SIGNS: Listed below. GENERAL: elderly, NAD HEENT: NC/AT, EOMI CARDIOVASCULAR: +S1S2, RRR LUNGS: diminished breath sounds ABDOMEN: Soft, NT, +BS EXTREMITIES: No clubbing or cyanosis or edema A/P: 88 yo male for fall and near syncope, hospital stay complicated with pseudomonal pneumonia. #Pseudomonas Pneumonia - transitioned to PO cefidinir, started abx on 06/15 - Levaquin and Meropenem - continues to improve - follow clinically #CAUTI - UCx + yeast - continue diflucan - started 06/12 - likely 10-14 days #hyponatremia - asymptomatic - improving #Leukocytosis - likely 06/16 steroids - improving #CHF - systolic and diastolic dysfunction - continue Lasix & Lisinopril #Near syncope * Multifactorial: UTI, pneumonia, Lopressor requiring dose adjustment for orthostatic hypotension. * Continue physical therapy & OT. #Orthostatic hypotension in setting of baseline HTN * resolved after holding home Lasix and lisinopril, & adjusting Lopressor dose * meds resumed #Paroxysmal atrial fibrillation with hx of PE * rate controlled on po lopressor after dosages adjusted from home dose of 50mg daily to 25mg q8h * continue lovenox in lieu of his home edoxaban, which we do not carry on formulary #History of PE * Chronically anticoagulated. On Lovenox inpatient. #COPD * on baseline, 4L NC. Maintain Oxygen sat between 88-92% and continue home nebs #Rheumatoid arthritis & Discoid Lupus * Verified per [facility] records in chart * Home methotrexate and Plaquenil on hold as he is being treated for active infections: PNA and UTI #BPH * continue home Flomax #GERD * continue po PPI #Dyslipidemia * continue home statin and ASA DVT ppx: on Lovenox. DISPOSITION: pending PT/OT and clinical improvement. VS,Fishbone, I+O VS, Fishbone, I+O Laboratory Tests 06/24/18 05:57 Red Blood Count 3.06 L, Mean Corpuscular Volume 86.3, Mean Corpuscular Hemoglobin 27.8, Mean Corpuscular Hemoglobin Concent 32.2, Red Cell Distribution Width 16.8 H, Calcium Level 7.6 L Vital Signs Date Time Temp Pulse Resp B/P (MAP) Pulse Ox O2 Delivery O2 Flow Rate FiO2 06/24/18 09:14 156/90 06/24/18 06:00 97.4 64 17 94 4.0 06/23/18 23:13 Nasal Cannula I&O- Last 24 Hours up to 6 AM 06/24/18 06:00 Intake Total 1200 ml Output Total 2275 ml Balance -1075 ml AMANDA ROONEY MD Jun 24, 2018 10:31
[2018-06-24 14:00] VITALS: BP 152/65
[2018-06-24] MEDS: TAMSULOSIN 0.4 MG CAP PO SCH (21:03)
[2018-06-24] MEDS: ATORVASTATIN 10 MG TAB PO SCH (21:03)
[2018-06-24 22:00] VITALS: BP 143/65
[2018-06-25] MEDS: IPRATROPIUM 0.5MG/ALBUTEROL 2.5MG INH SOL UD 3ML (DUONEB)(J7620) NEB SCH ×6 (03:33→23:24)
[2018-06-25] MEDS ORDERED: FUROSEMIDE 20 MG/2 ML VIAL (J1940) IV ONE (04:15)
[2018-06-25 06:00] VITALS: BP 150/67
[2018-06-25] MEDS: SLF 3 ML SYR IV SCH ×3 (06:00→21:24)
[2018-06-25] MEDS: METOPROLOL TART 25 MG TABLET PO SCH ×3 (06:01→21:23)
[2018-06-25 06:11] LABS: HEMATOCRIT 26.9 % (42.0-52.0); MEAN CORPUSCULAR HEMOGLOBIN 28.5 pg (27.0-33.0); MEAN CORPUSCULAR HGB CONC 33.5 g/dl (32.0-36.5); MEAN CORPUSCULAR VOLUME 85.1 fl (80.0-96.0); PLATELET COUNT, AUTOMATED 188 10^3/uL (150-450); RED BLOOD COUNT 3.16 10^6/uL (4.30-6.10); WHITE BLOOD COUNT 10.7 10^3/uL (4.0-10.0)
[2018-06-25 06:30] LABS: BLOOD UREA NITROGEN 29 MG/DL (7-18); CALCIUM LEVEL 7.7 MG/DL (8.8-10.2); CARBON DIOXIDE LEVEL 31 MEQ/L (21-32); CHLORIDE LEVEL 97 MEQ/L (98-107); CREATININE FOR GFR 0.98 MG/DL (0.70-1.30); GLOMERULAR FILTRATION RATE > 60.0 (>35); GLUCOSE, FASTING 112 MG/DL (70-100); POTASSIUM SERUM 4.1 MEQ/L (3.5-5.1); SODIUM LEVEL 133 MEQ/L (136-145)
[2018-06-25] MEDS: SYMBICORT 160/4.5MCG INHALER 6GM INH SCH ×2 (09:16→21:14)
[2018-06-25] MEDS: CEFDINIR 300 MG CAP (OMNICEF) PO SCH ×2 (10:04→21:22)
[2018-06-25] MEDS: predniSONE 20 MG TAB PO SCH (10:04)
[2018-06-25] MEDS: predniSONE 5 MG TAB PO SCH (10:04)
[2018-06-25] MEDS: ENOXAPARIN 80 MG/0.8 ML SYRINGE (J1650) SC SCH ×2 (10:04→21:24)
[2018-06-25] MEDS: MAGNESIUM OXIDE 400 MG TAB (MAG-OX) PO SCH ×2 (10:05→21:22)
[2018-06-25] MEDS: LISINOPRIL 10 MG TAB PO SCH (10:05)
[2018-06-25] MEDS: ASPIRIN 81 MG ENTERIC TAB PO SCH (10:05)
[2018-06-25] MEDS: DOCUSATE SODIUM 100 MG CAP PO SCH ×2 (10:05→21:22)
[2018-06-25] MEDS: LORATADINE 10 MG TAB PO SCH (10:05)
[2018-06-25] MEDS: PANTOPRAZOLE 40MG TAB (PROTONIX) PO SCH (10:06)
[2018-06-25] MEDS: FLUCONAZOLE 100 MG TAB PO SCH (10:06)
[2018-06-25] MEDS: FUROSEMIDE 20 MG TAB PO SCH (10:06)
[2018-06-25] MEDS: MELOXICAM (MOBIC) 7.5 MG TAB PO SCH (10:15)
--- NOTE | 2018-06-25 10:25 | IPNPDOC ---
Date Seen The patient was seen on 06/25/18. Progress Note SUBJECTIVE: Pt examined at bedside. No events overnight. Gradually improving. Continues on abx, IV steroids, and in PT. No f/c, n/v, abd pain. OBJECTIVE: VITAL SIGNS: Listed below. GENERAL: Alert and awake. Conversant. NAD HEENT: Normocephalic, atraumatic. EOMI, anicteric sclera CARDIOVASCULAR: RRR, no audible murmurs LUNGS: Decreased breath sounds throughout. CTAB besides rhonchi on left base. Is on his baseline 4L NC ABDOMEN: Soft, nontender and nondistended EXTREMITIES: 2+ radial pulses b/l. No edema LABORATORY DATA: Listed below. ASSESSMENT AND PLAN: --Pseudomonas Pneumonia * Continues to gradually improve. Continue po cefdinir. Abx initially started on abx 06/15. * Continue slow po prednisone taper-on day 2 of 60mg po * is on baseline 4L NC, but still feeling sob and coughing with phlegm * continue duoneb and symbicort --Urinary tract infection 2/2 chronic indwelling Sam catheter. * Urine culture +yeast organism. Will d/c today, given it is Day 14, started 06/12 --Hyponatremia * Stable at 133 this am. Is asymptomatic. Continue monitoring. Appears euvolemic on exam --Leukocytosis * essentially resolved, likely 2/2 steroids. No fever, and overall feels better. Continue monitoring --Systolic and diastolic dysfunction * EF 45-50% as of 06/07/1819. Grade 1 diastolic dysfunction with mild LVH * Continue Lasix & Lisinopril --Near syncope * Multifactorial: UTI, pneumonia, Lopressor requiring dose adjustment for orthostatic hypotension. Is improved and stable now * Continue physical therapy & OT. --Orthostatic hypotension in setting of baseline HTN * resolved after holding home Lasix and lisinopril, & adjusting Lopressor dose * meds resumed --Paroxysmal atrial fibrillation with hx of PE * rate controlled on po lopressor after dosages adjusted from home dose of 50mg daily to 25mg q8h * continue lovenox in lieu of his home edoxaban, which we do not carry on formulary --History of pulmonary embolism * Chronically anticoagulated. On Lovenox inpatient. --COPD * on baseline, 4L NC. Maintain Oxygen sat between 88-92% and continue home nebs --Rheumatoid arthritis & Discoid Lupus * [facility] * Home methotrexate and Plaquenil on hold as he is being treated for active infections: PNA and UTI --BPH * continue home Flomax --GERD * continue po PPI --Dyslipidemia * continue home statin and ASA DVT ppx: on Lovenox. DISPOSITION: pending PT/OT and clinical improvement. VS, I&O, 24H, Fishbone Vital Signs/I&O Vital Signs Date Time Temp Pulse Resp B/P (MAP) Pulse Ox O2 Delivery O2 Flow Rate FiO2 06/25/18 10:05 150/67 06/25/18 06:01 71 06/25/18 06:00 97.9 15 91 4.0 06/24/18 23:20 Nasal Cannula I&O- Last 24 Hours up to 6 AM 06/25/18 06:00 Intake Total 960 ml Output Total 2275 ml Balance -1315 ml Laboratory Data 24H LABS Laboratory Tests 2 06/25/18 05:37: Nucleated Red Blood Cells % (auto) 0.0, Anion Gap 5L, Glomerular Filtration Rate > 60.0, Blood Urea Nitrogen 29H, Creatinine 0.98, Sodium Level 133L, Potassium Level 4.1, Chloride Level 97L, Carbon Dioxide Level 31, Calcium Level 7.7L CBC/BMP Laboratory Tests 06/25/18 05:37 Red Blood Count 3.16 L, Mean Corpuscular Volume 85.1, Mean Corpuscular Hemoglobin 28.5, Mean Corpuscular Hemoglobin Concent 33.5, Red Cell Distribution Width 16.9 H, Calcium Level 7.7 L Microbiology Microbiology 06/15/18 MRSA Screen - Final, Complete GME ATTESTATION GME ATTESTATION My faculty preceptor for this patient encounter was physically present during the encounter and was fully available. All aspects of the patient interview, examination, medical decision making process, and medical care plan development were reviewed and approved by the faculty preceptor. The faculty preceptor is aware and concurs with the plan as stated in the body of this note and will attest to such by his/her cosignature. DEPEAK GOMES DO Jun 25, 2018 10:25
[2018-06-25 14:00] VITALS: BP 139/65; O2SAT 94
[2018-06-25 16:00] LABS: SODIUM,RANDOM URINE 12 MEQ/L
[2018-06-25 16:08] LABS: OSMOLALITY URINE 433 MOSM/KG (500-800)
[2018-06-25] MEDS: TAMSULOSIN 0.4 MG CAP PO SCH (21:00)
[2018-06-25] MEDS: ATORVASTATIN 10 MG TAB PO SCH (21:23)
[2018-06-25 22:00] VITALS: BP 131/53; O2SAT 97
[2018-06-26] MEDS: IPRATROPIUM 0.5MG/ALBUTEROL 2.5MG INH SOL UD 3ML (DUONEB)(J7620) NEB SCH ×5 (04:00→20:00)
[2018-06-26] MEDS: SLF 3 ML SYR IV SCH ×3 (05:42→23:33)
[2018-06-26] MEDS: METOPROLOL TART 25 MG TABLET PO SCH ×3 (05:43→23:33)
[2018-06-26 06:00] VITALS: BP 154/67; O2SAT 95
[2018-06-26 06:57] LABS: HEMATOCRIT 27.6 % (42.0-52.0); HEMOGLOBIN 8.9 g/dl (13.5-17.5); MEAN CORPUSCULAR HEMOGLOBIN 28.2 pg (27.0-33.0); MEAN CORPUSCULAR HGB CONC 32.2 g/dl (32.0-36.5); MEAN CORPUSCULAR VOLUME 87.3 fl (80.0-96.0); PLATELET COUNT, AUTOMATED 174 10^3/uL (150-450); RED BLOOD COUNT 3.16 10^6/uL (4.30-6.10)
[2018-06-26 07:16] LABS: BLOOD UREA NITROGEN 32 MG/DL (7-18); CALCIUM LEVEL 7.5 MG/DL (8.8-10.2); CARBON DIOXIDE LEVEL 31 MEQ/L (21-32); CHLORIDE LEVEL 96 MEQ/L (98-107); CREATININE FOR GFR 1.01 MG/DL (0.70-1.30); GLOMERULAR FILTRATION RATE > 60.0 (>35); GLUCOSE, FASTING 104 MG/DL (70-100); POTASSIUM SERUM 4.2 MEQ/L (3.5-5.1); SODIUM LEVEL 133 MEQ/L (136-145)
[2018-06-26] MEDS: SYMBICORT 160/4.5MCG INHALER 6GM INH SCH ×2 (08:47→20:45)
--- NOTE | 2018-06-26 09:39 | IPNPDOC ---
Date Seen The patient was seen on 06/26/18. Progress Note SUBJECTIVE: Pt examined at bedside eating breakfast. No events overnight. Gradually improving. Continues on abx, transitioned to po steroids, and in PT. No f/c, n/v, abd pain. OBJECTIVE: VITAL SIGNS: Listed below. GENERAL: Alert and awake. Conversant. NAD HEENT: Normocephalic, atraumatic. EOMI, anicteric sclera CARDIOVASCULAR: RRR, no audible murmurs LUNGS: Decreased breath sounds throughout. Coarse rhonchi throughout. Is on his baseline 4L NC ABDOMEN: Soft, nontender and nondistended EXTREMITIES: 2+ radial pulses b/l. No edema LABORATORY DATA: Listed below. ASSESSMENT AND PLAN: --Pseudomonas Pneumonia * Continues to gradually improve. Continue po cefdinir. Abx initially started on abx 06/15. * Continue slow po prednisone taper-on day 3 of 60mg po * is on baseline 4L NC, but still feeling sob and coughing with phlegm * continue duoneb and symbicort --Hyponatremia * Stable at 133 this am. Is asymptomatic. Continue monitoring. Appears euvolemic on exam --Leukocytosis * stable, likely 2/2 steroids. No fever, and overall feels better. Continue monitoring --Urinary tract infection 2/2 chronic indwelling Sam catheter. * s/p 14 days of Diflucan for +yeast in urine-completed 06/25 --Systolic and diastolic dysfunction * EF 45-50% as of 06/07/1819. Grade 1 diastolic dysfunction with mild LVH * Continue Lasix & Lisinopril --Near syncope * Multifactorial: UTI, pneumonia, Lopressor requiring dose adjustment for orthostatic hypotension. Is improved and stable now * Continue physical therapy & OT. --Orthostatic hypotension in setting of baseline HTN * resolved after holding home Lasix and lisinopril, & adjusting Lopressor dose * meds resumed --Paroxysmal atrial fibrillation with hx of PE * rate controlled on po lopressor after dosages adjusted from home dose of 50mg daily to 25mg q8h * continue lovenox in lieu of his home edoxaban, which we do not carry on formulary --History of pulmonary embolism * Chronically anticoagulated. On Lovenox inpatient. --COPD * on baseline, 4L NC. Maintain Oxygen sat between 88-92% and continue home nebs --Rheumatoid arthritis & Discoid Lupus * [facility] * Home methotrexate and Plaquenil on hold as he is being treated for active infections: PNA and UTI --BPH * continue home Flomax --GERD * continue po PPI --Dyslipidemia * continue home statin and ASA DVT ppx: on Lovenox. DISPOSITION: pending PT/OT and clinical improvement. VS, I&O, 24H, Fishbone Vital Signs/I&O Vital Signs Date Time Temp Pulse Resp B/P (MAP) Pulse Ox O2 Delivery O2 Flow Rate FiO2 06/26/18 06:00 95 Nasal Cannula 4.0 06/26/18 06:00 98.8 70 16 154/67 (96) I&O- Last 24 Hours up to 6 AM 06/26/18 06:00 Intake Total 780 ml Output Total 1600 ml Balance -820 ml Laboratory Data 24H LABS Laboratory Tests 2 06/25/18 15:08: Urine Random Osmolality 433L, Urine Random Sodium 12 06/26/18 06:31: Nucleated Red Blood Cells % (auto) 0.0, Anion Gap 6L, Glomerular Filtration Rate > 60.0, Blood Urea Nitrogen 32H, Creatinine 1.01, Sodium Level 133L, Potassium Level 4.2, Chloride Level 96L, Carbon Dioxide Level 31, Calcium Level 7.5L CBC/BMP Laboratory Tests 06/26/18 06:31 Red Blood Count 3.16 L, Mean Corpuscular Volume 87.3, Mean Corpuscular Hemoglobin 28.2, Mean Corpuscular Hemoglobin Concent 32.2, Red Cell Distribution Width 17.0 H, Calcium Level 7.5 L GME ATTESTATION GME ATTESTATION My faculty preceptor for this patient encounter was physically present during the encounter and was fully available. All aspects of the patient interview, examination, medical decision making process, and medical care plan development were reviewed and approved by the faculty preceptor. The faculty preceptor is aware and concurs with the plan as stated in the body of this note and will attest to such by his/her cosignature. DEEPAK GOMES DO Jun 26, 2018 09:39
[2018-06-26] MEDS: PANTOPRAZOLE 40MG TAB (PROTONIX) PO SCH (10:08)
[2018-06-26] MEDS: MELOXICAM (MOBIC) 7.5 MG TAB PO SCH (10:08)
[2018-06-26] MEDS: ENOXAPARIN 80 MG/0.8 ML SYRINGE (J1650) SC SCH ×2 (10:08→20:26)
[2018-06-26] MEDS: FUROSEMIDE 20 MG TAB PO SCH (10:09)
[2018-06-26] MEDS: predniSONE 20 MG TAB PO SCH (10:09)
[2018-06-26] MEDS: predniSONE 5 MG TAB PO SCH (10:09)
[2018-06-26] MEDS: CEFDINIR 300 MG CAP (OMNICEF) PO SCH ×2 (10:09→20:31)
[2018-06-26] MEDS: LORATADINE 10 MG TAB PO SCH (10:09)
[2018-06-26] MEDS: ASPIRIN 81 MG ENTERIC TAB PO SCH (10:09)
[2018-06-26] MEDS: DOCUSATE SODIUM 100 MG CAP PO SCH ×2 (10:10→20:26)
[2018-06-26] MEDS: MAGNESIUM OXIDE 400 MG TAB (MAG-OX) PO SCH ×2 (10:10→20:26)
[2018-06-26] MEDS: LISINOPRIL 10 MG TAB PO SCH (10:10)
[2018-06-26 14:00] VITALS: BP 122/65
[2018-06-26 19:02] VITALS: O2SAT 96
[2018-06-26] MEDS: ATORVASTATIN 10 MG TAB PO SCH (20:26)
[2018-06-26] MEDS: TAMSULOSIN 0.4 MG CAP PO SCH (20:26)
[2018-06-26 22:00] VITALS: BP 146/57
[2018-06-27] MEDS: IPRATROPIUM 0.5MG/ALBUTEROL 2.5MG INH SOL UD 3ML (DUONEB)(J7620) NEB SCH ×7 (00:25→23:48)
[2018-06-27 06:00] VITALS: BP 161/71
[2018-06-27] MEDS: SLF 3 ML SYR IV SCH ×3 (06:12→21:34)
[2018-06-27] MEDS: METOPROLOL TART 25 MG TABLET PO SCH ×3 (06:12→21:32)
[2018-06-27 07:05] LABS: HEMATOCRIT 26.4 % (42.0-52.0); HEMOGLOBIN 8.7 g/dl (13.5-17.5); MEAN CORPUSCULAR HEMOGLOBIN 28.3 pg (27.0-33.0); PLATELET COUNT, AUTOMATED 158 10^3/uL (150-450); RED BLOOD COUNT 3.07 10^6/uL (4.30-6.10); WHITE BLOOD COUNT 12.7 10^3/uL (4.0-10.0)
[2018-06-27 07:31] LABS: BLOOD UREA NITROGEN 33 MG/DL (7-18); CALCIUM LEVEL 7.5 MG/DL (8.8-10.2); CARBON DIOXIDE LEVEL 32 MEQ/L (21-32); CHLORIDE LEVEL 97 MEQ/L (98-107); CREATININE FOR GFR 0.91 MG/DL (0.70-1.30); GLOMERULAR FILTRATION RATE > 60.0 (>35); GLUCOSE, FASTING 96 MG/DL (70-100); POTASSIUM SERUM 4.2 MEQ/L (3.5-5.1); SODIUM LEVEL 134 MEQ/L (136-145)
[2018-06-27] MEDS: SYMBICORT 160/4.5MCG INHALER 6GM INH SCH ×2 (08:30→20:41)
[2018-06-27] MEDS: DOCUSATE SODIUM 100 MG CAP PO SCH ×2 (09:03→21:33)
[2018-06-27] MEDS: MELOXICAM (MOBIC) 7.5 MG TAB PO SCH (09:03)
[2018-06-27] MEDS: FUROSEMIDE 20 MG TAB PO SCH (09:03)
[2018-06-27] MEDS: PANTOPRAZOLE 40MG TAB (PROTONIX) PO SCH (09:03)
[2018-06-27] MEDS: ASPIRIN 81 MG ENTERIC TAB PO SCH (09:03)
[2018-06-27] MEDS: MAGNESIUM OXIDE 400 MG TAB (MAG-OX) PO SCH ×2 (09:03→21:33)
[2018-06-27] MEDS: LISINOPRIL 10 MG TAB PO SCH (09:06)
[2018-06-27] MEDS: LORATADINE 10 MG TAB PO SCH (09:06)
[2018-06-27] MEDS: predniSONE 20 MG TAB PO SCH (09:07)
[2018-06-27] MEDS: predniSONE 5 MG TAB PO SCH (09:07)
[2018-06-27] MEDS: CEFDINIR 300 MG CAP (OMNICEF) PO SCH ×2 (09:14→21:32)
[2018-06-27] MEDS: ENOXAPARIN 80 MG/0.8 ML SYRINGE (J1650) SC SCH ×2 (10:59→21:33)
--- NOTE | 2018-06-27 11:24 | IPNPDOC ---
Date Seen The patient was seen on 06/27/18. Progress Note SUBJECTIVE: Pt examined sitting up in chair. Gradually improving with PT/OT. Continues on abx, and steroid taper. No f/c, n/v, abd pain. Noted to have condon-colored urine as of Monday night reported today. Sam was changed yesterday. No pelvic or bladder pain. OBJECTIVE: VITAL SIGNS: Listed below. GENERAL: Alert and awake. Conversant. NAD HEENT: Normocephalic, atraumatic. EOMI, anicteric sclera CARDIOVASCULAR: RRR, no audible murmurs LUNGS: Decreased breath sounds throughout. Rhonchi improved from previous days. Is on his baseline 4L NC ABDOMEN: Soft, nontender and nondistended EXTREMITIES: 2+ radial pulses b/l. No edema : Chronic Sam in place with red output LABORATORY DATA: Listed below. ASSESSMENT AND PLAN: --Pseudomonas Pneumonia * Continues to gradually improve. Continue po cefdinir, 14-day course to end tomorrow * Continue slow po prednisone taper-on day 1 of 40mg po * is on baseline 4L NC, but still feeling sob, especially with mvmt * continue duoneb and symbicort --Hematuria * per reports, began Monday night and chronic Sam changed yesterday night. Will hold am Lovenox and monitor output. * H&H stable, no abd/pelvic pain or distension. Renal fxn stable * Renal & Bladder US and UA pending. Differential includes recurrence of UTI vs traumatic Sam --Hyponatremia * Improving gradually, at 134 today. Is asymptomatic. Continue monitoring. Appears euvolemic on exam --Leukocytosis * stable, likely 2/2 steroids. No fever, and overall feels better. Continue monitoring --Urinary tract infection 2/2 chronic indwelling Sam catheter. * s/p 14 days of Diflucan for +yeast in urine-completed 06/25 --Systolic and diastolic dysfunction * EF 45-50% as of 06/07/1819. Grade 1 diastolic dysfunction with mild LVH * Continue Lasix & Lisinopril --Near syncope * Multifactorial: UTI, pneumonia, Lopressor requiring dose adjustment for orthostatic hypotension. Is improved and stable now * Continue physical therapy & OT. --Orthostatic hypotension in setting of baseline HTN * resolved after holding home Lasix and lisinopril, & adjusting Lopressor dose * meds resumed --Paroxysmal atrial fibrillation with hx of PE * rate controlled on po lopressor after dosages adjusted from home dose of 50mg daily to 25mg q8h * on Lovenox in lieu of his home edoxaban, which we do not carry on formulary --COPD * on baseline, 4L NC. Maintain Oxygen sat between 88-92% and continue home nebs --Rheumatoid arthritis & Discoid Lupus * [facility] * Home methotrexate and Plaquenil on hold as he is being treated for active infections: PNA and UTI --BPH * continue home Flomax --GERD * continue po PPI --Dyslipidemia * continue home statin and ASA DVT ppx: on Lovenox. DISPOSITION: pending PT/OT and clinical improvement. Possible subacute rehab. I personally had in-depth discussion with pt yesterday and again today regarding subacute rehab. He is under the suspicion that rehab is for end-of-life care, and he is also worried about mistreatment, stating "If I'm going to , I want to be at home." He was educated on benefits and purpose of rehab and states he would like to discuss it further with his gf later today. VS, I&O, 24H, Fishbone Vital Signs/I&O Vital Signs Date Time Temp Pulse Resp B/P (MAP) Pulse Ox O2 Delivery O2 Flow Rate FiO2 06/27/18 09:06 141/53 06/27/18 06:12 76 06/27/18 06:00 98.3 15 99 4.0 06/26/18 20:43 Nasal Cannula I&O- Last 24 Hours up to 6 AM 06/27/18 06:00 Intake Total 1290 ml Output Total 1300 ml Balance -10 ml Laboratory Data 24H LABS Laboratory Tests 2 06/27/18 06:35: Nucleated Red Blood Cells % (auto) 0.2H, Anion Gap 5L, Glomerular Filtration Rate > 60.0, Blood Urea Nitrogen 33H, Creatinine 0.91, Sodium Level 134L, Potassium Level 4.2, Chloride Level 97L, Carbon Dioxide Level 32, Calcium Level 7.5L CBC/BMP Laboratory Tests 06/27/18 06:35 Red Blood Count 3.07 L, Mean Corpuscular Volume 86.0, Mean Corpuscular Hemoglobin 28.3, Mean Corpuscular Hemoglobin Concent 33.0, Red Cell Distribution Width 17.4 H, Calcium Level 7.5 L GME ATTESTATION GME ATTESTATION My faculty preceptor for this patient encounter was physically present during the encounter and was fully available. All aspects of the patient interview, examination, medical decision making process, and medical care plan development were reviewed and approved by the faculty preceptor. The faculty preceptor is aware and concurs with the plan as stated in the body of this note and will attest to such by his/her cosignature. DEEPAK GOMES DO Jun 27, 2018 11:24
[2018-06-27 14:00] VITALS: BP 154/72
--- NOTE | 2018-06-27 14:14 | REP ---
Renal ultrasound for hematuria: There are no comparisons. The right kidney measures 10.5 x 4.7 x 6.3 cm. The left kidney measures 11.2 x 5.1 x 6.0 cm. The kidneys are normal size. Renal cortical echogenicity is normal bilaterally. There is no hydronephrosis. There are no renal calculi. There are no solid renal masses. There are three right renal simple cysts: Upper pole 2.0 cm, upper pole 0.9 cm, lower pole laterally 2.7 cm. There are two small crescentic fluid collections lateral to the left kidney one at the upper pole and the other at the lower pole, nonspecific, pyelonephritis versus urinomas. Bladder ultrasound: There is a Sam catheter in the bladder, the bladder is collapsed and cannot be evaluated. Impression: There are three simple right renal cysts. There are too small perinephric fluid collections lateral to the left kidney, one at the upper pole and the other at the lower pole, nonspecific, pyelonephritis versus urinomas. Electronically Signed by Jame Egan MD 06/27/2018 02:05 P
[2018-06-27 15:41] VITALS: O2SAT 94
[2018-06-27] MEDS: TAMSULOSIN 0.4 MG CAP PO SCH (21:33)
[2018-06-27] MEDS: ATORVASTATIN 10 MG TAB PO SCH (21:33)
[2018-06-27 22:00] VITALS: BP 149/70
[2018-06-28 06:00] VITALS: BP 142/72
[2018-06-28] MEDS: METOPROLOL TART 25 MG TABLET PO SCH ×3 (06:35→21:22)
[2018-06-28] MEDS: SLF 3 ML SYR IV SCH ×3 (06:36→21:24)
[2018-06-28 06:39] LABS: MEAN CORPUSCULAR HEMOGLOBIN 28.4 pg (27.0-33.0); MEAN CORPUSCULAR HGB CONC 32.1 g/dl (32.0-36.5); MEAN CORPUSCULAR VOLUME 88.3 fl (80.0-96.0); PLATELET COUNT, AUTOMATED 161 10^3/uL (150-450); RED BLOOD COUNT 3.17 10^6/uL (4.30-6.10); WHITE BLOOD COUNT 11.5 10^3/uL (4.0-10.0)
[2018-06-28 07:09] LABS: BLOOD UREA NITROGEN 26 MG/DL (7-18); CALCIUM LEVEL 7.8 MG/DL (8.8-10.2); CARBON DIOXIDE LEVEL 32 MEQ/L (21-32); CHLORIDE LEVEL 99 MEQ/L (98-107); GLOMERULAR FILTRATION RATE > 60.0 (>35); GLUCOSE, FASTING 80 MG/DL (70-100); POTASSIUM SERUM 3.8 MEQ/L (3.5-5.1); SODIUM LEVEL 135 MEQ/L (136-145)
[2018-06-28] MEDS: CEFDINIR 300 MG CAP (OMNICEF) PO SCH ×2 (07:53→21:21)
[2018-06-28] MEDS: LORATADINE 10 MG TAB PO SCH (07:53)
[2018-06-28] MEDS: predniSONE 20 MG TAB PO SCH (07:54)
[2018-06-28] MEDS: MAGNESIUM OXIDE 400 MG TAB (MAG-OX) PO SCH ×2 (07:54→21:23)
[2018-06-28] MEDS: LISINOPRIL 10 MG TAB PO SCH (07:54)
[2018-06-28] MEDS: DOCUSATE SODIUM 100 MG CAP PO SCH ×2 (07:55→21:23)
[2018-06-28] MEDS: FUROSEMIDE 20 MG TAB PO SCH (07:55)
[2018-06-28] MEDS: MELOXICAM (MOBIC) 7.5 MG TAB PO SCH (07:55)
[2018-06-28] MEDS: predniSONE 5 MG TAB PO SCH (07:55)
[2018-06-28] MEDS: ASPIRIN 81 MG ENTERIC TAB PO SCH (07:56)
[2018-06-28] MEDS: ENOXAPARIN 80 MG/0.8 ML SYRINGE (J1650) SC SCH ×2 (07:56→21:21)
[2018-06-28] MEDS: PANTOPRAZOLE 40MG TAB (PROTONIX) PO SCH (07:56)
[2018-06-28] MEDS: SYMBICORT 160/4.5MCG INHALER 6GM INH SCH ×2 (07:57→18:30)
[2018-06-28] MEDS: IPRATROPIUM 0.5MG/ALBUTEROL 2.5MG INH SOL UD 3ML (DUONEB)(J7620) NEB SCH ×6 (07:58→23:28)
[2018-06-28 08:00] VITALS: O2SAT 92
[2018-06-28 13:52] VITALS: BP 180/70
[2018-06-28 14:50] VITALS: BP 139/65
--- NOTE | 2018-06-28 18:56 | IPNPDOC ---
Date Seen The patient was seen on 06/28/18. Progress Note SUBJECTIVE: Pt examined at bedside. Is adamant about goint to rehab. Continue PT/OT, but not safe for discharge home. Continues on abx, and steroid taper. No f/c, n/v, abd pain. Hematuria started to clear yesterday after holding am dose of Lovenox, but returned after night dose was given. No pelvic or bladder pain. OBJECTIVE: VITAL SIGNS: Listed below. GENERAL: Alert and awake. Conversant. NAD HEENT: Normocephalic, atraumatic. EOMI, anicteric sclera CARDIOVASCULAR: RRR, no audible murmurs LUNGS: Decreased breath sounds throughout. Rhonchi improved from previous days. Is on his baseline 4L NC ABDOMEN: Soft, nontender and nondistended EXTREMITIES: 2+ radial pulses b/l. No edema : Chronic Sam in place with red output LABORATORY DATA: Listed below. ASSESSMENT AND PLAN: --Pseudomonas Pneumonia * Continues to gradually improve. Complete 14-day Cefdinir today * Continue slow po prednisone taper-on day 2 of 40mg po * is on baseline 4L NC, but still feeling sob, especially with mvmt * continue duoneb and symbicort --Hematuria * improved slightly after holding yesterday am Lovenox dose, but continues to this am. Lovenox & ASA initially cancelled. Spoke with Urology, who recommend continue AC and monitoring H&H. Transfuse as needed, and if blood persists, then o/p f/u with them * H&H continues to be stable, no abd/pelvic pain or distension. Renal fxn stable * Renal/bladder US and UA reveal simple right renal cysts and possible pyelo vs urinoma, blood and RBCs in UA. Differential includes traumatic chronic Sam vs renal cyst vs nephrolithiasis vs nfection. Recently completed 14-day course Diflucan on 06/25. New urine cx pending. --Hyponatremia * Improving gradually, at 135 today. Is asymptomatic. Continue monitoring. Appears euvolemic on exam. Likely related to acute ill state. --Leukocytosis * stable, likely 2/2 steroids. No fever, and overall feels better. Continue monitoring --Urinary tract infection 2/2 chronic indwelling Sam catheter. * s/p 14 days of Diflucan for +yeast in urine-completed 06/25 --Systolic and diastolic dysfunction * EF 45-50% as of 06/07/1819. Grade 1 diastolic dysfunction with mild LVH * Continue Lasix & Lisinopril --Near syncope * Multifactorial: UTI, pneumonia, Lopressor requiring dose adjustment for orthostatic hypotension. Is improved and stable now * Continue physical therapy & OT. --Orthostatic hypotension in setting of baseline HTN * resolved after holding home Lasix and lisinopril, & adjusting Lopressor dose * meds resumed --Paroxysmal atrial fibrillation with hx of PE * rate controlled on po lopressor after dosages adjusted from home dose of 50mg daily to 25mg q8h * on Lovenox in lieu of his home edoxaban, which we do not carry on formulary --COPD * on baseline, 4L NC. Maintain Oxygen sat between 88-92% and continue home nebs --Rheumatoid arthritis & Discoid Lupus * [facility] * Home methotrexate and Plaquenil on hold as he is being treated for active infections: PNA and UTI --BPH * continue home Flomax --GERD * continue po PPI --Dyslipidemia * continue home statin and ASA DVT ppx: resume Lovenox. DISPOSITION: pending PT/OT and clinical improvement. Possible subacute rehab. Again had in-depth discussion with pt about long-term plans. He is adamant about going to rehab and states he will only go home after the hospital. Continue support and encouragement and education. VS, I&O, 24H, Fishbone Vital Signs/I&O Vital Signs Date Time Temp Pulse Resp B/P (MAP) Pulse Ox O2 Delivery O2 Flow Rate FiO2 06/28/18 14:50 139/65 (89) 06/28/18 13:53 90 06/28/18 13:52 97.5 20 93 3.0 06/28/18 08:00 Nasal Cannula I&O- Last 24 Hours up to 6 AM 06/28/18 05:59 Intake Total 2450 ml Output Total 2930 ml Balance -480 ml Laboratory Data 24H LABS Laboratory Tests 2 06/28/18 06:23: Nucleated Red Blood Cells % (auto) 0.0, Anion Gap 4L, Glomerular Filtration Rate > 60.0, Blood Urea Nitrogen 26H, Creatinine 0.80, Sodium Level 135L, Potassium Level 3.8, Chloride Level 99, Carbon Dioxide Level 32, Calcium Level 7.8L CBC/BMP Laboratory Tests 06/28/18 06:23 Red Blood Count 3.17 L, Mean Corpuscular Volume 88.3, Mean Corpuscular Hemoglobin 28.4, Mean Corpuscular Hemoglobin Concent 32.1, Red Cell Distribution Width 17.7 H, Calcium Level 7.8 L Microbiology Microbiology 06/27/18 Urine Culture, Received Pending GME ATTESTATION GME ATTESTATION My faculty preceptor for this patient encounter was physically present during the encounter and was fully available. All aspects of the patient interview, examination, medical decision making process, and medical care plan development were reviewed and approved by the faculty preceptor. The faculty preceptor is aware and concurs with the plan as stated in the body of this note and will attest to such by his/her cosignature. DEEPAK GOMES DO Jun 28, 2018 18:56
[2018-06-28] MEDS: TAMSULOSIN 0.4 MG CAP PO SCH (21:22)
[2018-06-28] MEDS: ATORVASTATIN 10 MG TAB PO SCH (21:23)
[2018-06-28 22:00] VITALS: BP 133/63
[2018-06-29] MEDS: IPRATROPIUM 0.5MG/ALBUTEROL 2.5MG INH SOL UD 3ML (DUONEB)(J7620) NEB SCH ×6 (03:02→23:42)
[2018-06-29 05:43] LABS: HEMOGLOBIN 8.8 g/dl (13.5-17.5); MEAN CORPUSCULAR HEMOGLOBIN 28.6 pg (27.0-33.0); MEAN CORPUSCULAR HGB CONC 32.6 g/dl (32.0-36.5); MEAN CORPUSCULAR VOLUME 87.7 fl (80.0-96.0); PLATELET COUNT, AUTOMATED 146 10^3/uL (150-450); RED BLOOD COUNT 3.08 10^6/uL (4.30-6.10)
[2018-06-29] MEDS: SLF 3 ML SYR IV SCH ×3 (05:44→20:16)
[2018-06-29] MEDS: METOPROLOL TART 25 MG TABLET PO SCH ×3 (05:45→20:15)
[2018-06-29 05:53] LABS: BLOOD UREA NITROGEN 29 MG/DL (7-18); CALCIUM LEVEL 7.3 MG/DL (8.8-10.2); CARBON DIOXIDE LEVEL 29 MEQ/L (21-32); CHLORIDE LEVEL 102 MEQ/L (98-107); CREATININE FOR GFR 0.79 MG/DL (0.70-1.30); GLOMERULAR FILTRATION RATE > 60.0 (>35); GLUCOSE, FASTING 81 MG/DL (70-100); POTASSIUM SERUM 3.8 MEQ/L (3.5-5.1); SODIUM LEVEL 136 MEQ/L (136-145)
[2018-06-29 06:00] VITALS: BP 129/70; O2SAT 97
[2018-06-29] MEDS ORDERED: CEFDINIR 300 MG CAP (OMNICEF) PO SCH (06:00)
[2018-06-29] MEDS: SYMBICORT 160/4.5MCG INHALER 6GM INH SCH ×2 (07:47→20:51)
[2018-06-29] MEDS: ENOXAPARIN 80 MG/0.8 ML SYRINGE (J1650) SC SCH ×2 (08:51→20:14)
[2018-06-29] MEDS: PANTOPRAZOLE 40MG TAB (PROTONIX) PO SCH (08:51)
[2018-06-29] MEDS: FUROSEMIDE 20 MG TAB PO SCH (08:51)
[2018-06-29] MEDS: predniSONE 5 MG TAB PO SCH (08:51)
[2018-06-29] MEDS: LORATADINE 10 MG TAB PO SCH (08:51)
[2018-06-29] MEDS: predniSONE 20 MG TAB PO SCH (08:51)
[2018-06-29] MEDS: ASPIRIN 81 MG ENTERIC TAB PO SCH (08:51)
[2018-06-29] MEDS: MELOXICAM (MOBIC) 7.5 MG TAB PO SCH (08:52)
[2018-06-29] MEDS: DOCUSATE SODIUM 100 MG CAP PO SCH ×2 (08:52→20:14)
[2018-06-29] MEDS: MAGNESIUM OXIDE 400 MG TAB (MAG-OX) PO SCH ×2 (08:52→20:14)
[2018-06-29] MEDS: LISINOPRIL 10 MG TAB PO SCH (08:55)
[2018-06-29] MEDS: IPRATROPIUM 0.5MG/ALBUTEROL 2.5MG INH SOL UD 3ML (DUONEB)(J7620) NEB PRN (09:08)
--- NOTE | 2018-06-29 09:17 | IPNPDOC ---
Date Seen The patient was seen on 06/29/18. Progress Note SUBJECTIVE: Pt examined at bedside. Continues to refuse rehab. Feeling the same as yesterday, still having subjective sob. Is at his baseline 2-3L NC. Continue PT/OT, but not safe for discharge home. Abx cousrse completed yesterday, continuing steroid taper. No f/c, n/v, abd pain. Hematuria is beginning to clear again today, continued on Lovenox & ASA. No pelvic or bladder pain. OBJECTIVE: VITAL SIGNS: Listed below. GENERAL: Alert and awake. Conversant. NAD HEENT: Normocephalic, atraumatic. EOMI, anicteric sclera CARDIOVASCULAR: irregular rhythm, reg rate, no audible murmurs LUNGS: Decreased breath sounds throughout. Rhonchi improved from previous days. Is on his baseline 4L NC ABDOMEN: Soft, nontender and nondistended EXTREMITIES: 2+ radial pulses b/l. No edema : Chronic Sam in place with light red output LABORATORY DATA: Listed below. ASSESSMENT AND PLAN: --Hematuria * urine slightly clearer today. H&H stable on continued Lovenox & ASA. No abd/pelvic pain or distension. Renal fxn stable * Spoke with Dr. Arreola 06/28. Recommends: continue AC and monitor H&H. Transfuse as needed, and if blood persists, then o/p f/u with them * Renal/bladder US and UA reveal simple right renal cysts and possible pyelo vs urinoma, blood and RBCs in UA. Differential includes traumatic chronic Sam vs renal cyst vs nephrolithiasis vs infection. Recently completed 14-day course Diflucan on 06/25. New urine cx pending. --Pseudomonas Pneumonia * s/p 14-day Cefdinir completed 06/28 * Continue slow po prednisone taper-on day 3 of 40mg po * is on baseline 4L NC, but still subjective sob * continue duoneb and symbicort --Hyponatremia * Self-resolved. Likely related to acute ill state. --Leukocytosis * stable, likely 2/2 steroids. No fever. Continue monitoring --Urinary tract infection 2/2 chronic indwelling Sam catheter. * s/p 14 days of Diflucan for +yeast in urine-completed 06/25 --Systolic and diastolic dysfunction * EF 45-50% as of 06/07/1819. Grade 1 diastolic dysfunction with mild LVH * Continue Lasix & Lisinopril --Near syncope * Multifactorial: UTI, pneumonia, Lopressor requiring dose adjustment for orthostatic hypotension. Is improved and stable now * Continue physical therapy & OT. --Orthostatic hypotension in setting of baseline HTN * resolved after holding home Lasix and lisinopril, & adjusting Lopressor dose * meds resumed --Paroxysmal atrial fibrillation with hx of PE * rate controlled on po lopressor after dosages adjusted from home dose of 50mg daily to 25mg q8h * on Lovenox in lieu of his home edoxaban, which we do not carry on formulary --COPD * on baseline, 4L NC. Maintain Oxygen sat between 88-92% and continue home nebs --Rheumatoid arthritis & Discoid Lupus * Verified per [facility] records in chart * Home methotrexate and Plaquenil on hold as he is being treated for active infections: PNA and UTI --BPH * continue home Flomax --GERD * continue po PPI --Dyslipidemia * continue home statin and ASA DVT ppx: resume Lovenox. DISPOSITION: pending PT/OT and clinical improvement. Possible subacute rehab-pt continues to refuse rehab. VS, I&O, 24H, Fishbone Vital Signs/I&O Vital Signs Date Time Temp Pulse Resp B/P (MAP) Pulse Ox O2 Delivery O2 Flow Rate FiO2 06/29/18 08:55 134/66 06/29/18 06:00 97 Nasal Cannula 3.0 06/29/18 06:00 98.7 64 18 I&O- Last 24 Hours up to 6 AM 06/29/18 06:00 Intake Total 1346 ml Output Total 2325 ml Balance -979 ml Laboratory Data 24H LABS Laboratory Tests 2 06/29/18 05:16: Nucleated Red Blood Cells % (auto) 0.0, Anion Gap 5L, Glomerular Filtration Rate > 60.0, Blood Urea Nitrogen 29H, Creatinine 0.79, Sodium Level 136, Potassium Level 3.8, Chloride Level 102, Carbon Dioxide Level 29, Calcium Level 7.3L CBC/BMP Laboratory Tests 06/29/18 05:16 Red Blood Count 3.08 L, Mean Corpuscular Volume 87.7, Mean Corpuscular Hemoglobin 28.6, Mean Corpuscular Hemoglobin Concent 32.6, Red Cell Distribution Width 18.1 H, Calcium Level 7.3 L Microbiology Microbiology 06/27/18 Urine Culture, Received Pending GME ATTESTATION GME ATTESTATION My faculty preceptor for this patient encounter was physically present during the encounter and was fully available. All aspects of the patient interview, examination, medical decision making process, and medical care plan development were reviewed and approved by the faculty preceptor. The faculty preceptor is aware and concurs with the plan as stated in the body of this note and will attest to such by his/her cosignature. DEEPAK GOMES DO Jun 29, 2018 09:17
[2018-06-29 14:00] VITALS: BP 138/60
[2018-06-29] MEDS: ATORVASTATIN 10 MG TAB PO SCH (20:14)
[2018-06-29] MEDS: TAMSULOSIN 0.4 MG CAP PO SCH (20:14)
[2018-06-29] MEDS: TOBRAMYCIN INHAL 300 MG/5 ML SOLN INH SCH (20:59)
[2018-06-29 22:00] VITALS: BP 138/65
[2018-06-30] MEDS: IPRATROPIUM 0.5MG/ALBUTEROL 2.5MG INH SOL UD 3ML (DUONEB)(J7620) NEB SCH ×6 (03:30→23:49)
[2018-06-30] MEDS: LevoFLOXacin 750 MG TABLET PO SCH (05:42)
[2018-06-30] MEDS: METOPROLOL TART 25 MG TABLET PO SCH ×3 (05:42→20:45)
[2018-06-30] MEDS: SLF 3 ML SYR IV SCH ×3 (05:43→20:44)
[2018-06-30 06:00] VITALS: BP 139/63
[2018-06-30 06:27] LABS: HEMATOCRIT 26.1 % (42.0-52.0); HEMOGLOBIN 8.4 g/dl (13.5-17.5); MEAN CORPUSCULAR HEMOGLOBIN 28.5 pg (27.0-33.0); MEAN CORPUSCULAR HGB CONC 32.2 g/dl (32.0-36.5); MEAN CORPUSCULAR VOLUME 88.5 fl (80.0-96.0); PLATELET COUNT, AUTOMATED 147 10^3/uL (150-450); RED BLOOD COUNT 2.95 10^6/uL (4.30-6.10); WHITE BLOOD COUNT 11.9 10^3/uL (4.0-10.0)
[2018-06-30 06:53] LABS: BLOOD UREA NITROGEN 27 MG/DL (7-18); CALCIUM LEVEL 7.6 MG/DL (8.8-10.2); CARBON DIOXIDE LEVEL 32 MEQ/L (21-32); CHLORIDE LEVEL 100 MEQ/L (98-107); CREATININE FOR GFR 0.84 MG/DL (0.70-1.30); GLOMERULAR FILTRATION RATE > 60.0 (>35); GLUCOSE, FASTING 87 MG/DL (70-100); POTASSIUM SERUM 4.1 MEQ/L (3.5-5.1); SODIUM LEVEL 137 MEQ/L (136-145)
[2018-06-30] MEDS: TOBRAMYCIN INHAL 300 MG/5 ML SOLN INH SCH ×2 (07:30→20:31)
[2018-06-30] MEDS: SYMBICORT 160/4.5MCG INHALER 6GM INH SCH ×2 (07:30→20:30)
[2018-06-30] MEDS: MELOXICAM (MOBIC) 7.5 MG TAB PO SCH (08:24)
[2018-06-30] MEDS: LISINOPRIL 10 MG TAB PO SCH (08:24)
[2018-06-30] MEDS: ASPIRIN 81 MG ENTERIC TAB PO SCH (08:24)
[2018-06-30] MEDS: ENOXAPARIN 80 MG/0.8 ML SYRINGE (J1650) SC SCH ×2 (08:24→20:44)
[2018-06-30] MEDS: MAGNESIUM OXIDE 400 MG TAB (MAG-OX) PO SCH ×2 (08:25→20:46)
[2018-06-30] MEDS: DOCUSATE SODIUM 100 MG CAP PO SCH ×2 (08:25→20:46)
[2018-06-30] MEDS: PANTOPRAZOLE 40MG TAB (PROTONIX) PO SCH (08:25)
[2018-06-30] MEDS: predniSONE 20 MG TAB PO SCH (08:25)
[2018-06-30] MEDS: FUROSEMIDE 20 MG TAB PO SCH (08:26)
[2018-06-30] MEDS: LORATADINE 10 MG TAB PO SCH (08:26)
[2018-06-30 14:26] VITALS: BP 100/40
--- NOTE | 2018-06-30 14:52 | IPNPDOC ---
Date Seen The patient was seen on 06/30/18. Progress Note SUBJECTIVE: Pt examined at bedside. Feeling the same as yesterday, not much improvement. No reported events overnight. Sam is clear yellow again and no longer having hematuria. OBJECTIVE: VITAL SIGNS: Listed below. GENERAL: Alert and awake. Conversant. NAD HEENT: Normocephalic, atraumatic. EOMI, anicteric sclera CARDIOVASCULAR: irregular rhythm, reg rate, no audible murmurs LUNGS: Decreased breath sounds throughout. Rhonchi with mild wheezing. Is on his baseline 4L NC ABDOMEN: Soft, nontender and nondistended EXTREMITIES: 2+ radial pulses b/l. No edema : Chronic Sam in place with cleat yellow o/p LABORATORY DATA: Listed below. ASSESSMENT AND PLAN: --Pseudomonas Pneumonia * not much improvement s/p 14-day Cefdinir completed 06/28. Is on baseline 3-4L NC, but still subjective sob * Dr. Lowery consulted, appreciate input. Started on Levaquin & Tobramycin. Clinically monitor * Continue slow po prednisone taper-on day 4/5 of 40mg po * continue duoneb and symbicort --Hematuria * resolved without intervention and H&H stable on continued Lovenox & ASA. No abd/pelvic pain or distension. Renal fxn stable * Renal/bladder US and UA reveal simple right renal cysts and possible pyelo vs urinoma, blood and RBCs in UA. Possible traumatic chronic Sam vs renal cyst vs nephrolithiasis. * Unlikely infection as he recently completed 14-day course Diflucan on 06/25 and repeat urine cx negative --Leukocytosis * stable, likely 2/2 steroids. No fever. Continue monitoring --Urinary tract infection 2/2 chronic indwelling Sam catheter. * s/p 14 days of Diflucan for +yeast in urine-completed 06/25 --Systolic and diastolic dysfunction * EF 45-50% as of 06/07/1819. Grade 1 diastolic dysfunction with mild LVH * Continue Lasix & Lisinopril --Near syncope * Multifactorial: UTI, pneumonia, Lopressor requiring dose adjustment for o rthostatic hypotension. Is improved and stable now * Continue physical therapy & OT. --Orthostatic hypotension in setting of baseline HTN * resolved after holding home Lasix and lisinopril, & adjusting Lopressor dose * meds resumed --Paroxysmal atrial fibrillation with hx of PE * rate controlled on po lopressor after dosages adjusted from home dose of 50mg daily to 25mg q8h * on Lovenox in lieu of his home edoxaban, which we do not carry on formulary --COPD * on baseline, 4L NC. Maintain Oxygen sat between 88-92% and continue home nebs --Rheumatoid arthritis & Discoid Lupus * [facility] * Home methotrexate and Plaquenil on hold as he is being treated for active infections: PNA and UTI --BPH * continue home Flomax --GERD * continue po PPI --Dyslipidemia * continue home statin and ASA DVT ppx: Lovenox. DISPOSITION: pending PT/OT and clinical improvement. Likely will need subacute rehab, but pt continues to refuse rehab. VS, I&O, 24H, Fishbone Vital Signs/I&O Vital Signs Date Time Temp Pulse Resp B/P (MAP) Pulse Ox O2 Delivery O2 Flow Rate FiO2 06/30/18 14:26 97.3 66 20 100/40 (60) 96 3.0 06/29/18 06:00 Nasal Cannula I&O- Last 24 Hours up to 6 AM 06/30/18 06:00 Intake Total 750 ml Output Total 1050 ml Balance -300 ml Laboratory Data 24H LABS Laboratory Tests 2 06/30/18 06:05: Nucleated Red Blood Cells % (auto) 0.0, Anion Gap 5L, Glomerular Filtration Rate > 60.0, Blood Urea Nitrogen 27H, Creatinine 0.84, Sodium Level 137, Potassium Level 4.1, Chloride Level 100, Carbon Dioxide Level 32, Calcium Level 7.6L CBC/BMP Laboratory Tests 06/30/18 06:05 Red Blood Count 2.95 L, Mean Corpuscular Volume 88.5, Mean Corpuscular Hemoglobin 28.5, Mean Corpuscular Hemoglobin Concent 32.2, Red Cell Distribution Width 18.2 H, Calcium Level 7.6 L Microbiology Microbiology 06/27/18 Urine Culture - Final, Complete GME ATTESTATION GME ATTESTATION My faculty preceptor for this patient encounter was physically present during the encounter and was fully available. All aspects of the patient interview, exa mination, medical decision making process, and medical care plan development were reviewed and approved by the faculty preceptor. The faculty preceptor is aware and concurs with the plan as stated in the body of this note and will attest to such by his/her cosignature. DEEPAK GOMES DO Jun 30, 2018 14:52
--- NOTE | 2018-06-30 15:18 | CR ---
DATE OF CONSULTATION: Asked to consult by hospitalist for evaluation of Pseudomonas pneumonia. HISTORY OF PRESENT ILLNESS: Mr. Keene is an 88-year-old gentleman with a history of chronic obstructive pulmonary disease (COPD), pulmonary embolism on anticoagulation, who was admitted on 06/06/2018 with complaint of dizziness. He denied having any fever or chills on admission. During his hospitalization, he started having a fever. Sputum culture done on 06/13/2018 as was positive for Pseudomonas aeruginosa mucoid colonies. The patient had a chest x-ray done on admission 06/06/2018, which showed a right lower lobe infiltrate/atelectasis. A chest CT done on 06/14/2018 showed again a right lower lobe infiltrate, atelectasis, small pleural effusion, and nodular opacities in the left lung, could be neoplastic versus inflammatory. The patient had been on broad-spectrum antibiotics initially from 06/09/2018 to 06/13/2018 with ceftriaxone and vancomycin. On 06/15/2018, he was switched to cefepime till 06/19/2018. From 06/19/2018 to 06/22/2018, he was on meropenem which is a total of 7 days of appropriate Pseudomonas coverage, after the sputum culture grew Pseudomonas. On 06/22/2018, he was switched to oral cefdinir, and his dose of prednisone was increased to 40 mg daily. He has been on cefdinir from 06/22/2018 to 06/28/2018. At that point, it was discontinued. The patient states that his cough is still very productive of thick yellow phlegm. The nurses who are taking care of him also reported very thick large amount of sputum. The patient has not had a fever in over 10 days at this point. He denies any nausea, vomiting, diarrhea. He has no abdominal pain. He does have significant cough and shortness of breath. He is on oxygen. Past medical history is significant for hyperlipidemia, hypertension, COPD, gastroesophageal reflux disease, rheumatoid arthritis on methotrexate and prednisone at 5 mg, Plaquenil. SOCIAL HISTORY: Lives with his girlfriend who was who is in her mid 50s. He denies smoking, alcohol use. ALLERGIES: No known drug allergies. MEDICATIONS: - Loratadine 10 mg by mouth daily - Colace 100 mg by mouth daily - prednisone 40 mg daily and 5 mg daily - DuoNeb 3 mL every 4 around the clock - aspirin 81 mg daily - tamsulosin 0.4 mg by mouth nightly - furosemide 20 mg daily - Lipitor 5 mg by mouth nightly - metoprolol 25 mg by mouth every 8 hours - Lovenox 80 mg subcu every 12 hours - MagOx 800 kg by mouth twice a day - meloxicam 15 mg by mouth daily - lisinopril 10 mg by mouth daily - pantoprazole 40 mg daily - guaifenesin 200 mg by mouth every 4 as needed - budesonide two puffs inhaled twice a day - Tylenol as needed LABS: White count 12, hemoglobin 8.8, hematocrit 27, platelets 146. Sodium 136, potassium 3.8, chloride 102, bicarbonate 29, BUN 29, creatinine 0.79. Renal ultrasound done on 06/27/2018 shows three simple cysts with small perinephric fluid collection lateral to the left kidney, one at the upper pole and the other the lower pole. Pyelonephritis as versus urinoma. Chest CT, right lower lobe infiltrates and nodular opacities. On physical exam, he is a frail-looking gentleman in no acute distress, alert and oriented. Head and ears, nose, and throat (ENT): Atraumatic. Oropharynx clear, anicteric sclera. Heart: Irregularly irregular. No murmurs. Lungs: Decreased breath sounds bilaterally with few exterior rhonchi. Patient on 4 liters nasal cannula. Abdomen: Soft, nontender. No hepatosplenomegaly. Extremities: +2 radial pulses. No clubbing, cyanosis, or edema. No rashes. Genitourinary (): Chronic Sam. IMPRESSION: This is an 88-year-old gentleman who was admitted initially with a gastrointestinal (GI) bleed, history of pulmonary embolus (PE), chronic obstructive pulmonary disease (COPD), who also had a COPD exacerbation with Pseudomonas mucoid colony, treated with 7 days of antipseudomonal coverage and then switched to cefdinir which is not appropriate Pseudomonas coverage. The patient has persistent large amount of productive cough with thick mucoid sputum. Pseudomonas is susceptible to quinolones and tobramycin. The patient is afebrile and therefore could be on oral antibiotics. PLAN: Start levofloxacin 750 mg by mouth daily for 7-10 days. Lev nebulizers to help penetrate through this mucoid colony of Pseudomonas, 300 mg nebulizers twice a day. This may be a problem to obtain at home, so if the patient needs to be discharge, it could be discontinued but would suggest continuing the levofloxacin for 10 days. Thank you for consultation.
[2018-06-30] MEDS: ATORVASTATIN 10 MG TAB PO SCH (20:45)
[2018-06-30] MEDS: TAMSULOSIN 0.4 MG CAP PO SCH (20:45)
[2018-06-30 22:00] VITALS: BP 138/63
[2018-07-01] MEDS: IPRATROPIUM 0.5MG/ALBUTEROL 2.5MG INH SOL UD 3ML (DUONEB)(J7620) NEB SCH ×5 (04:27→20:00)
[2018-07-01] MEDS: LevoFLOXacin 750 MG TABLET PO SCH (05:49)
[2018-07-01] MEDS: SLF 3 ML SYR IV SCH ×3 (05:53→21:07)
[2018-07-01] MEDS: METOPROLOL TART 25 MG TABLET PO SCH ×3 (05:53→21:07)
[2018-07-01 06:00] VITALS: BP 150/78; O2SAT 98
[2018-07-01] MEDS: TOBRAMYCIN INHAL 300 MG/5 ML SOLN INH SCH ×2 (07:39→20:26)
[2018-07-01] MEDS: SYMBICORT 160/4.5MCG INHALER 6GM INH SCH ×2 (07:40→20:26)
[2018-07-01] MEDS: PANTOPRAZOLE 40MG TAB (PROTONIX) PO SCH (09:03)
[2018-07-01] MEDS: MELOXICAM (MOBIC) 7.5 MG TAB PO SCH (09:03)
[2018-07-01] MEDS: DOCUSATE SODIUM 100 MG CAP PO SCH ×2 (09:03→21:01)
[2018-07-01] MEDS: predniSONE 20 MG TAB PO SCH (09:03)
[2018-07-01] MEDS: ASPIRIN 81 MG ENTERIC TAB PO SCH (09:03)
[2018-07-01] MEDS: LORATADINE 10 MG TAB PO SCH (09:03)
[2018-07-01] MEDS: LISINOPRIL 10 MG TAB PO SCH (09:04)
[2018-07-01] MEDS: FUROSEMIDE 20 MG TAB PO SCH (09:04)
[2018-07-01] MEDS: MAGNESIUM OXIDE 400 MG TAB (MAG-OX) PO SCH ×2 (09:04→21:01)
[2018-07-01] MEDS: ENOXAPARIN 80 MG/0.8 ML SYRINGE (J1650) SC SCH ×2 (09:05→20:59)
[2018-07-01] MEDS: IPRATROPIUM 0.5MG/ALBUTEROL 2.5MG INH SOL UD 3ML (DUONEB)(J7620) NEB PRN (13:12)
[2018-07-01 14:00] VITALS: BP 143/58
--- NOTE | 2018-07-01 18:27 | IPN ---
DATE: 07/01/2018 SUBJECTIVE: The patient is seen and examined in the room today. The patient has continued to complain of weakness. The patient continues to have productive sputum with yellow sputum. The patient is noted to have recurrence of his hematuria. Denies any fever or chills. OBJECTIVE: VITAL SIGNS: Temperature 97.8, pulse 75, respirations 16, blood pressure 150/78, pulse oximetry is 98% with 3 liters nasal cannula. GENERAL: The patient is alert and awake. HEENT: Normocephalic, atraumatic. Extraocular muscles are grossly intact. CARDIOVASCULAR: Irregularly irregular. Positive S1, S2. LUNGS: Decreased breath sounds, positive crackles. ABDOMEN: Soft, nontender, nondistended. GENITOURINARY: Sam catheter in place. There seems to be a laceration at the glans of the penis. EXTREMITIES: No lower extremity edema. LABORATORY DATA: WBC 11.9, hemoglobin 8.4, hematocrit 26.1, platelet count is 140. Sodium is 137, potassium 4.1, chloride 100, carbon dioxide 32, BUN 27, creatinine 0.84, GFR greater than 60, fasting glucose 87. Calcium is 7.6. ASSESSMENT AND PLAN: 1. Pseudomonas pneumoniae. Infectious disease consulted. The patient is on Levaquin and Tobramycin. 2. Hematuria. The patient has a chronic Sam catheter. The patient is on Lovenox and aspirin, discussed with urologist. As long as the Sam catheter is not obstructed and there is no significant change in hemoglobin and hematocrit, then observation. 3. Penile laceration. Urologist is Dr. Mancilla. Recommends outpatient followup. There is a possibility the patient may benefit from suprapubic catheter. 4. Urinary tract infection (UTI) secondary to chronic indwelling Sam catheter. Urine culture is positive for yeast. Status post course of Diflucan treatment. 5. Systolic and diastolic dysfunction. Ejection fraction of 40 to 50%. Grade 1 diastolic dysfunction. On diuretics. 6. Orthostatic hypotension. Continue to monitor, resolved. 7. Paroxysmal atrial fibrillation. On Lovenox and metoprolol. 8. Chronic obstructive pulmonary disease (COPD). At baseline, the patient uses 4 liters of oxygen. Oxygen saturation is 88% to 92%. 9. Rheumatoid arthritis. [employer] record in the chart. On immunosuppressant. Hold for acute infection. 10. Benign prostatic hypertrophy (BPH). Has a chronic indwelling Sam catheter. On Flomax. 11. Gastroesophageal reflux disease (GERD). Continue to monitor. 12. Deep vein thrombosis (DVT) prophylaxis. On Lovenox.
[2018-07-01 21:00] VITALS: O2SAT 98
[2018-07-01] MEDS: ATORVASTATIN 10 MG TAB PO SCH (21:01)
[2018-07-01] MEDS: TAMSULOSIN 0.4 MG CAP PO SCH (21:01)
[2018-07-01 22:00] VITALS: BP 141/64
[2018-07-02] MEDS: IPRATROPIUM 0.5MG/ALBUTEROL 2.5MG INH SOL UD 3ML (DUONEB)(J7620) NEB SCH ×6 (04:00→18:51)
[2018-07-02] MEDS: LevoFLOXacin 750 MG TABLET PO SCH (05:32)
[2018-07-02] MEDS: SLF 3 ML SYR IV SCH ×3 (05:32→21:55)
[2018-07-02] MEDS: METOPROLOL TART 25 MG TABLET PO SCH ×3 (05:33→21:57)
[2018-07-02 06:00] VITALS: BP 136/65
[2018-07-02 06:29] LABS: HEMOGLOBIN 8.5 g/dl (13.5-17.5); MEAN CORPUSCULAR HEMOGLOBIN 28.3 pg (27.0-33.0); MEAN CORPUSCULAR HGB CONC 31.5 g/dl (32.0-36.5); PLATELET COUNT, AUTOMATED 167 10^3/uL (150-450); WHITE BLOOD COUNT 10.1 10^3/uL (4.0-10.0)
[2018-07-02 06:56] LABS: BLOOD UREA NITROGEN 21 MG/DL (7-18); C REACTIVE PROTEIN QUANTITATIV 3.36 MG/DL (0.00-0.30); CALCIUM LEVEL 7.6 MG/DL (8.8-10.2); CARBON DIOXIDE LEVEL 31 MEQ/L (21-32); CHLORIDE LEVEL 99 MEQ/L (98-107); GLOMERULAR FILTRATION RATE > 60.0 (>35); GLUCOSE, FASTING 77 MG/DL (70-100); MAGNESIUM LEVEL 2.1 MG/DL (1.8-2.4); SODIUM LEVEL 133 MEQ/L (136-145)
[2018-07-02] MEDS: SYMBICORT 160/4.5MCG INHALER 6GM INH SCH ×2 (07:56→19:27)
[2018-07-02] MEDS: ASPIRIN 81 MG ENTERIC TAB PO SCH (08:10)
[2018-07-02] MEDS: MELOXICAM (MOBIC) 7.5 MG TAB PO SCH (08:10)
[2018-07-02] MEDS: LORATADINE 10 MG TAB PO SCH (08:10)
[2018-07-02] MEDS: DOCUSATE SODIUM 100 MG CAP PO SCH ×2 (08:10→21:57)
[2018-07-02] MEDS: MAGNESIUM OXIDE 400 MG TAB (MAG-OX) PO SCH ×2 (08:10→21:55)
[2018-07-02] MEDS: PANTOPRAZOLE 40MG TAB (PROTONIX) PO SCH (08:11)
[2018-07-02] MEDS: FUROSEMIDE 20 MG TAB PO SCH (08:11)
[2018-07-02] MEDS: predniSONE 20 MG TAB PO SCH (08:11)
[2018-07-02] MEDS: ENOXAPARIN 80 MG/0.8 ML SYRINGE (J1650) SC SCH ×2 (08:11→21:55)
[2018-07-02] MEDS: LISINOPRIL 10 MG TAB PO SCH (08:11)
[2018-07-02] MEDS: TOBRAMYCIN INHAL 300 MG/5 ML SOLN INH SCH ×2 (08:16→19:27)
[2018-07-02 09:45] VITALS: O2SAT 93
--- NOTE | 2018-07-02 13:22 | IPNPDOC ---
Date Seen The patient was seen on 07/02/18. Progress Note SUBJECTIVE: Pt examined at bedside. Feeling the same as yesterday. No reported events overnight. Sam is clear yellow again and no longer having hematuria, but noted to have a penile laceration, which has been discussed with Urology. Still has yellow sputum, about the same amount as prior days. OBJECTIVE: VITAL SIGNS: Listed below. GENERAL: Alert and awake. Conversant. NAD HEENT: Normocephalic, atraumatic. EOMI, anicteric sclera CARDIOVASCULAR: irregular rhythm, reg rate, no audible murmurs LUNGS: Decreased breath sounds throughout. Rhonchi with mild wheezing. Is on his baseline 4L NC ABDOMEN: Soft, nontender and nondistended EXTREMITIES: 2+ radial pulses b/l. No edema : Chronic Sam in place with yellow o/p LABORATORY DATA: Listed below. ASSESSMENT AND PLAN: --Pseudomonas Pneumonia * Continue Levaquin & Tobramycin per ID-started 06/30. Did not improve much with 14-day Cefdinir completed 06/28. Is on his baseline 3-4L NC, but still subjective sob * Continue slow po prednisone taper-decreased to 20mg starting tomorrow. Chronically on 5mg * continue duoneb and symbicort --Gross Hematuria * discussed with Urology-continue ASA & Lovenox and monitor H&H, which remain stable along with renal fxn. No abd/pelvic pain or distension. * Renal/bladder US and UA reveal simple right renal cysts and possible pyelo vs urinoma, blood and RBCs in UA. Possible traumatic chronic Sam * s/p 14-day course Diflucan completed 06/25 --Penile Laceration * Per Dr. Mancilla, o/p f/u for possible suprapubic catheter. Re-discussed today- nothing to do inpatient. Keep catheter up to the abdomen --Urinary tract infection 2/2 chronic indwelling Sam catheter. * s/p 14 days of Diflucan for +yeast in urine-completed 06/25 --Systolic and diastolic dysfunction * EF 45-50% as of 06/07/1819. Grade 1 diastolic dysfunction with mild LVH * stable, continue Lasix & Lisinopril --Near syncope * Multifactorial: UTI, pneumonia, Lopressor requiring dose adjustment for orthostatic hypotension. Is improved and stable now * Continue physical therapy & OT. --Orthostatic hypotension in setting of baseline HTN * resolved after holding home Lasix and lisinopril, & adjusting Lopressor dose * meds resumed --Paroxysmal atrial fibrillation with hx of PE * rate controlled on po lopressor after dosages adjusted from home dose of 50mg daily to 25mg q8h * on Lovenox in lieu of his home edoxaban, which we do not carry on formulary --COPD * on baseline, 4L NC. Maintain Oxygen sat between 88-92% and continue home nebs --Rheumatoid arthritis & Discoid Lupus * Verified per [place] records in chart * Home methotrexate and Plaquenil on hold as he is being treated for active infections: PNA and UTI --BPH * continue home Flomax --GERD * continue po PPI --Dyslipidemia * continue home statin and ASA DVT ppx: Lovenox. DISPOSITION: pending PT/OT and clinical improvement. Likely will need subacute rehab, but pt continues to refuse rehab. VS, I&O, 24H, Fishbone Vital Signs/I&O Vital Signs Date Time Temp Pulse Resp B/P (MAP) Pulse Ox O2 Delivery O2 Flow Rate FiO2 07/02/18 09:45 93 Nasal Cannula 4.0 07/02/18 08:11 136/65 07/02/18 06:00 97.2 76 18 I&O- Last 24 Hours up to 6 AM 07/02/18 06:00 Intake Total 1420 ml Output Total 625 ml Balance 795 ml Laboratory Data 24H LABS Laboratory Tests 2 07/02/18 06:03: Nucleated Red Blood Cells % (auto) 0.0, Anion Gap 3L, Glomerular Filtration Rate > 60.0, Blood Urea Nitrogen 21H, Creatinine 0.90, Sodium Level 133L, Potassium Level 4.0, Chloride Level 99, Carbon Dioxide Level 31, Calcium Level 7.6L, Magnesium Level 2.1, C-Reactive Protein, Quantitative 3.36H CBC/BMP Laboratory Tests 07/02/18 06:03 Red Blood Count 3.00 L, Mean Corpuscular Volume 90.0, Mean Corpuscular Hemoglobin 28.3, Mean Corpuscular Hemoglobin Concent 31.5 L, Red Cell Distribution Width 18.0 H, Calcium Level 7.6 L Microbiology Microbiology 06/27/18 Urine Culture - Final, Complete GME ATTESTATION GME ATTESTATION My faculty preceptor for this patient encounter was physically present during the encounter and was fully available. All aspects of the patient interview, examination, medical decision making process, and medical care plan development were reviewed and approved by the faculty preceptor. The faculty preceptor is aware and concurs with the plan as stated in the body of this note and will attest to such by his/her cosignature. DEEPAK GOMES DO Jul 02, 2018 13:22
[2018-07-02 14:00] VITALS: BP 118/57
[2018-07-02] MEDS: IPRATROPIUM 0.5MG/ALBUTEROL 2.5MG INH SOL UD 3ML (DUONEB)(J7620) NEB PRN (19:27)
[2018-07-02] MEDS: ATORVASTATIN 10 MG TAB PO SCH (21:56)
[2018-07-02] MEDS: TAMSULOSIN 0.4 MG CAP PO SCH (21:58)
[2018-07-02 22:00] VITALS: BP 127/60
[2018-07-03] VITALS (7 sets, daily range): BP systolic 90–155; BP diastolic 60–79; O2SAT 94
[2018-07-03] MEDS: SLF 3 ML SYR IV SCH ×3 (06:00→21:04)
[2018-07-03] MEDS: LevoFLOXacin 750 MG TABLET PO SCH (06:23)
[2018-07-03] MEDS: METOPROLOL TART 25 MG TABLET PO SCH ×3 (06:24→21:04)
[2018-07-03 06:35] LABS: HEMATOCRIT 27.5 % (42.0-52.0); HEMOGLOBIN 8.9 g/dl (13.5-17.5); MEAN CORPUSCULAR HEMOGLOBIN 28.5 pg (27.0-33.0); MEAN CORPUSCULAR HGB CONC 32.4 g/dl (32.0-36.5); MEAN CORPUSCULAR VOLUME 88.1 fl (80.0-96.0); PLATELET COUNT, AUTOMATED 176 10^3/uL (150-450); RED BLOOD COUNT 3.12 10^6/uL (4.30-6.10); WHITE BLOOD COUNT 10.3 10^3/uL (4.0-10.0)
[2018-07-03 07:00] LABS: BLOOD UREA NITROGEN 23 MG/DL (7-18); C REACTIVE PROTEIN QUANTITATIV 2.42 MG/DL (0.00-0.30); CALCIUM LEVEL 7.6 MG/DL (8.8-10.2); CARBON DIOXIDE LEVEL 28 MEQ/L (21-32); CHLORIDE LEVEL 102 MEQ/L (98-107); CREATININE FOR GFR 0.98 MG/DL (0.70-1.30); GLOMERULAR FILTRATION RATE > 60.0 (>35); GLUCOSE, FASTING 73 MG/DL (70-100); MAGNESIUM LEVEL 2.1 MG/DL (1.8-2.4); POTASSIUM SERUM 4.3 MEQ/L (3.5-5.1); SODIUM LEVEL 134 MEQ/L (136-145)
[2018-07-03] MEDS: SYMBICORT 160/4.5MCG INHALER 6GM INH SCH ×2 (07:08→19:03)
[2018-07-03] MEDS: IPRATROPIUM 0.5MG/ALBUTEROL 2.5MG INH SOL UD 3ML (DUONEB)(J7620) NEB SCH ×5 (07:08→19:03)
[2018-07-03] MEDS: TOBRAMYCIN INHAL 300 MG/5 ML SOLN INH SCH ×2 (07:08→19:03)
[2018-07-03] MEDS: ENOXAPARIN 80 MG/0.8 ML SYRINGE (J1650) SC SCH ×2 (08:00→21:02)
[2018-07-03] MEDS: DOCUSATE SODIUM 100 MG CAP PO SCH ×2 (08:05→20:16)
[2018-07-03] MEDS: PANTOPRAZOLE 40MG TAB (PROTONIX) PO SCH (08:05)
[2018-07-03] MEDS: LORATADINE 10 MG TAB PO SCH (08:05)
[2018-07-03] MEDS: FUROSEMIDE 20 MG TAB PO SCH (08:06)
[2018-07-03] MEDS: LISINOPRIL 10 MG TAB PO SCH (08:06)
[2018-07-03] MEDS: MELOXICAM (MOBIC) 7.5 MG TAB PO SCH (08:06)
[2018-07-03] MEDS: MAGNESIUM OXIDE 400 MG TAB (MAG-OX) PO SCH ×2 (08:06→20:16)
[2018-07-03] MEDS: predniSONE 20 MG TAB PO SCH (08:06)
[2018-07-03] MEDS: ASPIRIN 81 MG ENTERIC TAB PO SCH (08:06)
[2018-07-03] MEDS ORDERED: NS 500 ML IV ONE (14:00)
[2018-07-03] MEDS ORDERED: NS 1,000 ML IV ONE ×2 (14:00)
--- NOTE | 2018-07-03 16:36 | IPNPDOC ---
Date Seen The patient was seen on 07/03/18. Progress Note SUBJECTIVE: Pt examined at bedside. No issues overnight. He continues to improve on antibiotics and prednisone taper. Continuing with PT. OBJECTIVE: VITAL SIGNS: Listed below. GENERAL: Alert and awake. Conversant. NAD HEENT: Normocephalic, atraumatic. EOMI, anicteric sclera CARDIOVASCULAR: irregular rhythm, reg rate, no audible murmurs LUNGS: Decreased breath sounds throughout. Rhonchi with mild wheezing. Is on his baseline 4L NC ABDOMEN: Soft, nontender and nondistended EXTREMITIES: 2+ radial pulses b/l. No edema : Chronic Sam in place with yellow o/p LABORATORY DATA: Listed below. ASSESSMENT AND PLAN: --Pseudomonas Pneumonia * Improving on Levaquin & Tobramycin-started 06/30. Did not improve much with 14- day Cefdinir completed 06/28. Is on his baseline 3-4L NC * Continue slow po prednisone taper-started 20mg today. Chronically on 5mg * continue duoneb and symbicort --Gross Hematuria * Per Urology-continue ASA & Lovenox and monitor H&H, which remain stable along with renal fxn. No abd/pelvic pain or distension. * Renal/bladder US and UA reveal simple right renal cysts and possible pyelo vs urinoma, blood and RBCs in UA. Possible traumatic chronic Sam * s/p 14-day course Diflucan completed 06/25 --Penile Laceration * Per Dr. Mancilla, o/p f/u for possible suprapubic catheter, nothing to do inpatient. Keep catheter up to the abdomen --Urinary tract infection 2/2 chronic indwelling Sam catheter. * s/p 14 days of Diflucan for +yeast in urine-completed 06/25 --Systolic and diastolic dysfunction * EF 45-50% as of 06/07/1819. Grade 1 diastolic dysfunction with mild LVH * stable, continue Lasix & Lisinopril --Near syncope * Multifactorial: UTI, pneumonia, Lopressor requiring dose adjustment for orthostatic hypotension. Is improved and stable now * Continue physical therapy & OT. --Orthostatic hypotension in setting of baseline HTN * resolved after holding home Lasix and lisinopril, & adjusting Lopressor dose * meds resumed --Paroxysmal atrial fibrillation with hx of PE * rate controlled on po lopressor after dosages adjusted from home dose of 50mg daily to 25mg q8h * on Lovenox in lieu of his home edoxaban, which we do not carry on formulary --COPD * on baseline, 4L NC. Maintain Oxygen sat between 88-92% and continue home nebs --Rheumatoid arthritis & Discoid Lupus * Verified per [place] records in chart * Home methotrexate and Plaquenil on hold as he is being treated for active infections: PNA and UTI --BPH * continue home Flomax --GERD * continue po PPI --Dyslipidemia * continue home statin and ASA DVT ppx: Lovenox. DISPOSITION: pending PT/OT. Likely d/c home with services in next 24-48hrs. VS, I&O, 24H, Fishbone Vital Signs/I&O Vital Signs Date Time Temp Pulse Resp B/P (MAP) Pulse Ox O2 Delivery O2 Flow Rate FiO2 07/03/18 14:00 97.5 77 19 136/60 (85) 93 4.0 07/03/18 08:11 Nasal Cannula I&O- Last 24 Hours up to 6 AM 07/03/18 06:00 Intake Total 1500 ml Output Total 1500 ml Balance 0 ml Laboratory Data 24H LABS Laboratory Tests 2 07/03/18 06:22: Nucleated Red Blood Cells % (auto) 0.0, Anion Gap 4L, Glomerular Filtration Rate > 60.0, Blood Urea Nitrogen 23H, Creatinine 0.98, Sodium Level 134L, Potassium Level 4.3, Chloride Level 102, Carbon Dioxide Level 28, Calcium Level 7.6L, Magnesium Level 2.1, C-Reactive Protein, Quantitative 2.42H CBC/BMP Laboratory Tests 07/03/18 06:22 Red Blood Count 3.12 L, Mean Corpuscular Volume 88.1, Mean Corpuscular Hemoglobin 28.5, Mean Corpuscular Hemoglobin Concent 32.4, Red Cell Distribution Width 18.1 H, Calcium Level 7.6 L Microbiology Microbiology 06/27/18 Urine Culture - Final, Complete GME ATTESTATION GME ATTESTATION My faculty preceptor for this patient encounter was physically present during the encounter and was fully available. All aspects of the patient interview, examination, medical decision making process, and medical care plan development were reviewed and approved by the faculty preceptor. The faculty preceptor is aware and concurs with the plan as stated in the body of this note and will attest to such by his/her cosignature. DEEPAK GOMES DO Jul 03, 2018 16:21
[2018-07-03] MEDS: TAMSULOSIN 0.4 MG CAP PO SCH (20:16)
[2018-07-03] MEDS: ATORVASTATIN 10 MG TAB PO SCH (20:16)
[2018-07-04] VITALS (11 sets, daily range): BP systolic 82–138; BP diastolic 35–80; O2SAT 93
[2018-07-04] MEDS: IPRATROPIUM 0.5MG/ALBUTEROL 2.5MG INH SOL UD 3ML (DUONEB)(J7620) NEB SCH ×6 (03:38→20:42)
[2018-07-04] MEDS: SLF 3 ML SYR IV SCH ×3 (06:00→22:00)
[2018-07-04] MEDS: LevoFLOXacin 750 MG TABLET PO SCH (06:43)
[2018-07-04] MEDS: METOPROLOL TART 25 MG TABLET PO SCH ×3 (06:43→22:00)
[2018-07-04 07:01] LABS: HEMOGLOBIN 9.7 g/dl (13.5-17.5); MEAN CORPUSCULAR HGB CONC 31.3 g/dl (32.0-36.5); MEAN CORPUSCULAR VOLUME 89.6 fl (80.0-96.0); PLATELET COUNT, AUTOMATED 178 10^3/uL (150-450); RED BLOOD COUNT 3.46 10^6/uL (4.30-6.10); WHITE BLOOD COUNT 9.8 10^3/uL (4.0-10.0)
[2018-07-04 07:14] LABS: BLOOD UREA NITROGEN 18 MG/DL (7-18); C REACTIVE PROTEIN QUANTITATIV 3.99 MG/DL (0.00-0.30); CALCIUM LEVEL 7.5 MG/DL (8.8-10.2); CARBON DIOXIDE LEVEL 29 MEQ/L (21-32); CHLORIDE LEVEL 101 MEQ/L (98-107); CREATININE FOR GFR 1.02 MG/DL (0.70-1.30); GLOMERULAR FILTRATION RATE > 60.0 (>35); GLUCOSE, FASTING 76 MG/DL (70-100); MAGNESIUM LEVEL 1.9 MG/DL (1.8-2.4); POTASSIUM SERUM 4.5 MEQ/L (3.5-5.1); SODIUM LEVEL 134 MEQ/L (136-145)
[2018-07-04] MEDS: TOBRAMYCIN INHAL 300 MG/5 ML SOLN INH SCH ×2 (07:24→20:00)
[2018-07-04] MEDS: SYMBICORT 160/4.5MCG INHALER 6GM INH SCH ×2 (07:24→21:19)
[2018-07-04] MEDS: PANTOPRAZOLE 40MG TAB (PROTONIX) PO SCH (10:17)
[2018-07-04] MEDS: LISINOPRIL 10 MG TAB PO SCH (10:17)
[2018-07-04] MEDS: DOCUSATE SODIUM 100 MG CAP PO SCH ×2 (10:18→20:43)
[2018-07-04] MEDS: LORATADINE 10 MG TAB PO SCH (10:18)
[2018-07-04] MEDS: ASPIRIN 81 MG ENTERIC TAB PO SCH (10:18)
[2018-07-04] MEDS: FUROSEMIDE 20 MG TAB PO SCH (10:18)
[2018-07-04] MEDS: MELOXICAM (MOBIC) 7.5 MG TAB PO SCH (10:18)
[2018-07-04] MEDS: predniSONE 20 MG TAB PO SCH (10:19)
[2018-07-04] MEDS: MAGNESIUM OXIDE 400 MG TAB (MAG-OX) PO SCH ×2 (10:19→20:43)
[2018-07-04] MEDS: ENOXAPARIN 80 MG/0.8 ML SYRINGE (J1650) SC SCH ×2 (10:27→20:42)
[2018-07-04] MEDS ORDERED: NS 500 ML IV ONE (15:30)
[2018-07-04] MEDS: ACETAMINOPHEN TAB 650MG DOSE (2X325MG) PO PRN (15:49)
--- NOTE | 2018-07-04 16:43 | IPNPDOC ---
Date Seen The patient was seen on 07/04/18. Progress Note SUBJECTIVE: Pt examined at bedside. No issues overnight. Pending PT & OT. Likely will go home with services. He continues to improve on antibiotics and prednisone taper. OBJECTIVE: VITAL SIGNS: Listed below. GENERAL: Alert and awake. Conversant. NAD HEENT: Normocephalic, atraumatic. EOMI, anicteric sclera CARDIOVASCULAR: irregular rhythm, reg rate, no audible murmurs LUNGS: Decreased breath sounds throughout. Rhonchi with mild wheezing. Is on his baseline 4L NC ABDOMEN: Soft, nontender and nondistended EXTREMITIES: 2+ radial pulses b/l. No edema : Chronic Sam in place with yellow o/p LABORATORY DATA: Listed below. ASSESSMENT AND PLAN: --Pseudomonas Pneumonia * Improving on Levaquin & Tobramycin-started 06/30. Did not improve much with 14- day Cefdinir completed 06/28. Is on his baseline 3-4L NC * Continue slow po prednisone taper-day 2 of 20mg today. Chronically on 5mg * continue duoneb and symbicort --Symptomatic hypotension in setting of baseline HTN * Pt has required med adjustments to his antihypertensives during this admission and has had decreased po intake. * Continue IVF. Reduce Lasix & Lisinopril as tolerated. Will keep Lopressor as is given that his HR has well-controlled --Gross Hematuria * resolved, likely 2/2 renal cysts vs trauma from chronic Sam. H&H & renal fxn stable. No abd pain or distension. Good urine o/p * Per Urology-continue ASA & Lovenox * s/p 14-day course Diflucan completed 06/25 --Penile Laceration * Per Dr. Mancilla, o/p f/u for possible suprapubic catheter, nothing to do inp atient. Keep catheter up to the abdomen --Urinary tract infection 2/2 chronic indwelling Sam catheter. * s/p 14 days of Diflucan for +yeast in urine-completed 06/25 --Systolic and diastolic dysfunction * EF 45-50% as of 06/07/1819. Grade 1 diastolic dysfunction with mild LVH * stable, on Lasix & Lisinopril --Near syncope * Multifactorial: UTI, pneumonia, Lopressor requiring dose adjustment for ortho static hypotension. Is improved and stable now * Continue physical therapy & OT. --Paroxysmal atrial fibrillation with hx of PE * rate controlled on po lopressor after dosages adjusted from home dose of 50mg daily to 25mg q8h * on Lovenox in lieu of his home edoxaban, which we do not carry on formulary --COPD * on baseline, 4L NC. Maintain Oxygen sat between 88-92% and continue home nebs --Rheumatoid arthritis & Discoid Lupus * Verified per [facility] in [facility] * Home methotrexate and Plaquenil on hold as he is being treated for active infections: PNA and UTI --BPH * continue home Flomax --GERD * continue po PPI --Dyslipidemia * continue home statin and ASA DVT ppx: Lovenox. DISPOSITION: pending PT/OT. Likely d/c home with services in next 24-48hrs. VS, I&O, 24H, Fishbone Vital Signs/I&O Vital Signs Date Time Temp Pulse Resp B/P (MAP) Pulse Ox O2 Delivery O2 Flow Rate FiO2 07/04/18 15:34 83 82/35 07/04/18 10:00 4.0 07/04/18 09:43 95 07/04/18 09:00 Nasal Cannula 07/04/18 06:00 98.0 19 I&O- Last 24 Hours up to 6 AM 07/04/18 06:00 Intake Total 880 ml Output Total 2250 ml Balance -1370 ml Laboratory Data 24H LABS Laboratory Tests 2 07/04/18 06:37: Nucleated Red Blood Cells % (auto) 0.0, Anion Gap 4L, Glomerular Filtration Rate > 60.0, Blood Urea Nitrogen 18, Creatinine 1.02, Sodium Level 134L, Potassium Level 4.5, Chloride Level 101, Carbon Dioxide Level 29, Calcium Level 7.5L, Magnesium Level 1.9, C-Reactive Protein, Quantitative 3.99H CBC/BMP Laboratory Tests 07/04/18 06:37 Red Blood Count 3.46 L, Mean Corpuscular Volume 89.6, Mean Corpuscular Hemoglobin 28.0, Mean Corpuscular Hemoglobin Concent 31.3 L, Red Cell Distribution Width 17.9 H, Calcium Level 7.5 L Microbiology Microbiology 06/27/18 Urine Culture - Final, Complete GME ATTESTATION GME ATTESTATION My faculty preceptor for this patient encounter was physically present during the encounter and was fully available. All aspects of the patient interview, examination, medical decision making process, and medical care plan development were reviewed and approved by the faculty preceptor. The faculty preceptor is aware and concurs with the plan as stated in the body of this note and will attest to such by his/her cosignature. DEEPAK GOMES DO Jul 04, 2018 16:43
[2018-07-04] MEDS: TAMSULOSIN 0.4 MG CAP PO SCH (20:43)
[2018-07-04] MEDS: ATORVASTATIN 10 MG TAB PO SCH (20:43)
[2018-07-05] VITALS (11 sets, daily range): BP systolic 84–127; BP diastolic 39–60; O2SAT 92–97
[2018-07-05] MEDS: ACETAMINOPHEN TAB 650MG DOSE (2X325MG) PO PRN (00:05)
[2018-07-05] MEDS: IPRATROPIUM 0.5MG/ALBUTEROL 2.5MG INH SOL UD 3ML (DUONEB)(J7620) NEB SCH ×7 (04:00→23:29)
[2018-07-05] MEDS: METOPROLOL TART 25 MG TABLET PO SCH ×3 (06:00→21:19)
[2018-07-05] MEDS: SLF 3 ML SYR IV SCH ×3 (06:06→21:20)
[2018-07-05] MEDS: LevoFLOXacin 750 MG TABLET PO SCH (06:06)
[2018-07-05 06:21] LABS: HEMATOCRIT 28.9 % (42.0-52.0); HEMOGLOBIN 9.2 g/dl (13.5-17.5); MEAN CORPUSCULAR HGB CONC 31.8 g/dl (32.0-36.5); MEAN CORPUSCULAR VOLUME 87.8 fl (80.0-96.0); PLATELET COUNT, AUTOMATED 159 10^3/uL (150-450); RED BLOOD COUNT 3.29 10^6/uL (4.30-6.10)
[2018-07-05 06:34] LABS: C REACTIVE PROTEIN QUANTITATIV 10.9 MG/DL (0.00-0.30); CALCIUM LEVEL 7.1 MG/DL (8.8-10.2); CREATININE FOR GFR 1.33 MG/DL (0.70-1.30); GLOMERULAR FILTRATION RATE 54.1 (>35); MAGNESIUM LEVEL 2.1 MG/DL (1.8-2.4)
[2018-07-05] MEDS: SYMBICORT 160/4.5MCG INHALER 6GM INH SCH ×2 (08:05→21:06)
[2018-07-05] MEDS: TOBRAMYCIN INHAL 300 MG/5 ML SOLN INH SCH ×2 (08:05→20:00)
[2018-07-05] MEDS ORDERED: LISINOPRIL 5 MG TAB PO SCH (09:00)
[2018-07-05] MEDS: MAGNESIUM OXIDE 400 MG TAB (MAG-OX) PO SCH ×2 (09:48→21:19)
[2018-07-05] MEDS: ASPIRIN 81 MG ENTERIC TAB PO SCH (09:48)
[2018-07-05] MEDS: ENOXAPARIN 80 MG/0.8 ML SYRINGE (J1650) SC SCH ×2 (09:48→21:19)
[2018-07-05] MEDS: LORATADINE 10 MG TAB PO SCH (09:49)
[2018-07-05] MEDS: predniSONE 20 MG TAB PO SCH (09:49)
[2018-07-05] MEDS: NS 1,000 ML IV SCH ×2 (09:49→21:18)
[2018-07-05] MEDS: PANTOPRAZOLE 40MG TAB (PROTONIX) PO SCH (09:49)
[2018-07-05] MEDS: DOCUSATE SODIUM 100 MG CAP PO SCH ×2 (09:49→21:19)
[2018-07-05] MEDS: MELOXICAM (MOBIC) 7.5 MG TAB PO SCH (09:55)
--- NOTE | 2018-07-05 10:12 | REP ---
Chest two views HISTORY: Shortness of breath Comparison: 06/19/2018 Patchy density is present in the right lower lobe consistent with an infiltrate that is decreased compared to the previous study. The left lung is clear. The heart is normal in size. The pulmonary vasculature is normal in appearance. The bony structure is intact. IMPRESSION: Right lower lobe infiltrate decreased compared to the previous study. Electronically Signed by Jaren Burgess MD 07/05/2018 09:04 A
[2018-07-05] MEDS ORDERED: NS 250 ML IV ONE (11:00)
[2018-07-05] MEDS ORDERED: METOPROLOL 5 MG/5 ML VIAL IV STA (13:51)
[2018-07-05] MEDS: VANCOMYCIN HCL 1,000 MG, VIAL MATE ADAPTER 1 EACH in D5W 250 ML IV SCH (14:07)
[2018-07-05] MEDS ORDERED: VANCOMYCIN HCL 750 MG, VIAL MATE ADAPTER 1 EACH in D5W 250 ML IV ONE (15:00)
--- NOTE | 2018-07-05 15:30 | PHACANCOPD ---
PHARMACY VANCOMYCIN DOSING Pt Demographics Demographics Patient Age:88 , Weight:76.300 , Gender: male Adjusted Body Weight Date: 06/15/18, Adjusted Body Weight: [81.8] Kg Events Past 24 Hours Events Past 24 Hours: YES: Diuretic Therapy, Fever Vancomycin Vancomycin indication: Hospital acquired pneumonia Vancomycin Target Ranges: 15-20 mcg/ml Vancomycin Load Y/N: Yes Load Dose Date Time Vancomycin Load Dose: 1750 MG Date: 07/05/18 Time:1400 Vancomycin Dose Date: 06/15/18. Current Vancomycin Dose: [1 GM IV Q24H] Intermittent Dosing?: No Labs Labs Vital Signs Label Value Date Time Patient Temperature 99.0 degrees F 07/05/18 1400 Temperature Source Temporal 07/05/18 1400 Patient Temperature 99.5 degrees F 07/05/18 1151 Temperature Source Temporal 07/05/18 1151 Pulse 130 07/05/18 1407 Pulse 121 07/05/18 1312 Item Value Date Time White Blood Count 11.0 10^3/uL H 07/05/18 0543 C-Reactive Protein, Quantitative 10.90 MG/DL H 07/05/18 0543 Micro Microbiology 07/05/18 Blood Culture, Received Pending 07/05/18 Blood Culture, Received Pending 07/05/18 Respiratory Virus Panel (PCR) ([facility]) - Final, Complete 06/27/18 Urine Culture - Final, Complete Creatinine Clearance Date:06/15/18. Creatinine Clearance: [41.7 ml/min]. Assessment and Plan Maintaining Current Dose?: Yes Reason for dose change: No Dose Change Pharmacist Note Pharmacist Note Date: 06/15/18. Pharmacist note: PT is an 88 year old male being treated for hospital acquired pneumonia goal trough 15-20mcg/ml. The patient history of vancomycin therapy here at [facility] includes 1g of vancomycin iv 06/06/18. To achieve goal a 2g vancomycin iv loading dose will start 06/15/18 @08. Maintenance therapy will consist of 1g IV every 24 hours. We will continue to monitor and adjust the dose as needed. 07/05/18: Pharmacy consulted for re-initiation of Vancomycin for hospital acquired pneumonia, goal trough of 15-20 mcg/ml. Slight jump in patients CRP, spiked temperature over night, and WBC are also elevated. Per previous consult at the beginning of the month, I loaded him with 1750 mg, as his weight is slightly less than previous consult, and will follow with 1 gram IV every 24 hours. Pharmacy will continue to monitor and make adjustments as needed. [facility] Jul 05, 2018 15:30
--- NOTE | 2018-07-05 20:23 | IPNPDOC ---
Date Seen The patient was seen on 07/05/18. Progress Note SUBJECTIVE: Pt examined at bedside, having more difficulty breathing this am. Noted to have fever of 101.2 overnight, and increase in Cr to 1.33 this am. Also noted to be hypotensive with rising CRP despite being on antibiotics. No other complaints besides breathing. No cp, dizziness, abd pain, n/v. OBJECTIVE: VITAL SIGNS: Listed below. GENERAL: Alert and awake. Conversant. Mildly uncomfortable HEENT: Normocephalic, atraumatic. EOMI, anicteric sclera CARDIOVASCULAR: irregular rhythm, reg rate, no audible murmurs LUNGS: Decreased breath sounds throughout. Rhonchi with mild wheezing. Is on his baseline 4L NC ABDOMEN: Soft, nontender and nondistended EXTREMITIES: 2+ radial pulses b/l. No edema : Chronic Sam in place with yellow o/p LABORATORY DATA: Listed below. ASSESSMENT AND PLAN: -Sepsis * fever, tachypnea, leukocytosis overnight. Already on levaquin & Tobra for Pseudomonas PNA per ID recommendations. Given his acute decline overnight, will add gram+ coverage with Vanc. Repeat CXR reveals improving infiltrate, and resp panel neg. Will obtain new set of blood, urine, and sputum cultures, although they might be negative given long-term active abx * given episodic hypotension likely related to infection, will prophylactically insert PICC line and upgrade pt to PCU in case pressors are needed. He has responded well to 250mL boluses, and will start on continues IVF hydration and withold antihypertensives currently. Will d/c prednisone and start on Hydrocortisone for possible adrenal insufficiency. Maintain MAP>65. His immunocompromised state makes him a high-risk pt at baseline, further complicated by his over [id number] hospitalization. * pt is not having any abd complaints, but did have 1 episode of diarrhea this am. If he does not improve, will consider imaging abd for possible source of infection. Also of note, he did have 2 nodular densities noted on 06/14 CT chest which might be his source as well. If no improvement, will consider further investigating this while inpatient. Will continue IV abx, trending CRP, closely monitoring, awaiting procalcitonin. --Pseudomonas Pneumonia * On Levaquin & Tobramycin-started 06/30. S/p failed tx with 14-day Cefdinir completed 06/28. At baseline, is on 3-4L NC. Add Vanc as above * continue duoneb and symbicort --Symptomatic hypotension in setting of baseline HTN * Continue IVF and hold home Lasix & lisinopril as plan above. Will keep Lopressor as is given that his HR has well-controlled --Gross Hematuria * resolved, likely 2/2 renal cysts vs trauma from chronic Sam. H&H & renal fxn stable. No abd pain or distension. Good urine o/p * Per Urology-continue ASA & Lovenox * s/p 14-day course Diflucan completed 06/25 --Penile Laceration * Per Dr. Mancilla, o/p f/u for possible suprapubic catheter, nothing to do inpatient. Keep catheter up to the abdomen --Urinary tract infection 2/2 chronic indwelling Sam catheter. * s/p 14 days of Diflucan for +yeast in urine-completed 06/25 --Systolic and diastolic dysfunction * EF 45-50% as of 06/07/1819. Grade 1 diastolic dysfunction with mild LVH * stable, on Lasix & Lisinopril --Near syncope * Multifactorial: UTI, pneumonia, Lopressor requiring dose adjustment for orthostatic hypotension. Is improved and stable now * Continue physical therapy & OT. --Paroxysmal atrial fibrillation with hx of PE * rate controlled on po lopressor after dosages adjusted from home dose of 50mg daily to 25mg q8h * on Lovenox in lieu of his home edoxaban, which we do not carry on formulary --COPD * on baseline, 4L NC. Maintain Oxygen sat between 88-92% and continue home nebs --Rheumatoid arthritis & Discoid Lupus * [facility] * Home methotrexate and Plaquenil & chronic 5mg prednisone on hold as he is being treated for active infections: PNA and UTI --BPH * continue home Flomax --GERD * continue po PPI --Dyslipidemia * continue home statin and ASA DVT ppx: Lovenox. DISPOSITION: will upgrade to PCU and closely monitor given his decline over the past day. VS, I&O, 24H, Fishbone Vital Signs/I&O Vital Signs Date Time Temp Pulse Resp B/P (MAP) Pulse Ox O2 Delivery O2 Flow Rate FiO2 07/05/18 16:00 98.0 72 16 108/56 (73) 96 4.0 07/05/18 09:00 Nasal Cannula I&O- Last 24 Hours up to 6 AM 07/05/18 06:00 Intake Total 1380 ml Output Total 1850 ml Balance -470 ml Laboratory Data 24H LABS Laboratory Tests 2 07/05/18 05:43: Nucleated Red Blood Cells % (auto) 0.0, Anion Gap 7L, Glomerular Filtration Rate 54.1, Blood Urea Nitrogen 19H, Creatinine 1.33H, Sodium Level 136, Potassium Level 4.0, Chloride Level 101, Carbon Dioxide Level 28, Calcium Level 7.1L, Magnesium Level 2.1, C-Reactive Protein, Quantitative 10.90H 07/05/18 09:22: 07/05/18 11:57: Lactic Acid Level 1.7 CBC/BMP Laboratory Tests 07/05/18 05:43 Red Blood Count 3.29 L, Mean Corpuscular Volume 87.8, Mean Corpuscular Hemoglobin 28.0, Mean Corpuscular Hemoglobin Concent 31.8 L, Red Cell Distribution Width 18.0 H, Calcium Level 7.1 L Microbiology Microbiology 07/05/18 Blood Culture, Received Pending 07/05/18 Blood Culture, Received Pending 07/05/18 Respiratory Virus Panel (PCR) ([facility]) - Final, Complete 07/05/18 Urine Culture, Received Pending 06/27/18 Urine Culture - Final, Complete GME ATTESTATION GME ATTESTATION My faculty preceptor for this patient encounter was physically present during the encounter and was fully available. All aspects of the patient interview, examination, medical decision making process, and medical care plan development were reviewed and approved by the faculty preceptor. The faculty preceptor is aware and concurs with the plan as stated in the body of this note and will attest to such by his/her cosignature. DEEPAK GOMES DO Jul 05, 2018 20:23
[2018-07-05] MEDS: TAMSULOSIN 0.4 MG CAP PO SCH (21:19)
[2018-07-05] MEDS: ATORVASTATIN 10 MG TAB PO SCH (21:20)
[2018-07-05] MEDS: HYDROCORTISONE 100 MG/2 ML VIAL (J1720) IV SCH (21:20)
[2018-07-06] VITALS: BP 130/52; O2SAT 95
[2018-07-06 04:00] VITALS: BP 136/58; O2SAT 95
[2018-07-06] MEDS: IPRATROPIUM 0.5MG/ALBUTEROL 2.5MG INH SOL UD 3ML (DUONEB)(J7620) NEB SCH ×6 (04:19→22:12)
[2018-07-06] MEDS: METOPROLOL TART 25 MG TABLET PO SCH ×3 (05:55→21:36)
[2018-07-06] MEDS: LevoFLOXacin 750 MG TABLET PO SCH (05:55)
[2018-07-06] MEDS: HYDROCORTISONE 100 MG/2 ML VIAL (J1720) IV SCH ×3 (05:57→21:37)
[2018-07-06] MEDS: SLF 3 ML SYR IV SCH ×3 (06:00→21:42)
[2018-07-06 06:22] LABS: HEMATOCRIT 25.4 % (42.0-52.0); HEMOGLOBIN 8.2 g/dl (13.5-17.5); MEAN CORPUSCULAR HEMOGLOBIN 28.3 pg (27.0-33.0); MEAN CORPUSCULAR HGB CONC 32.3 g/dl (32.0-36.5); MEAN CORPUSCULAR VOLUME 87.6 fl (80.0-96.0); PLATELET COUNT, AUTOMATED 120 10^3/uL (150-450); WHITE BLOOD COUNT 9.5 10^3/uL (4.0-10.0)
[2018-07-06] MEDS: NS 1,000 ML IV SCH (06:25)
[2018-07-06 06:47] LABS: BLOOD UREA NITROGEN 19 MG/DL (7-18); CALCIUM LEVEL 6.8 MG/DL (8.8-10.2); CARBON DIOXIDE LEVEL 26 MEQ/L (21-32); CHLORIDE LEVEL 104 MEQ/L (98-107); CREATININE FOR GFR 1.04 MG/DL (0.70-1.30); GLOMERULAR FILTRATION RATE > 60.0 (>35); GLUCOSE, FASTING 155 MG/DL (70-100); MAGNESIUM LEVEL 2.4 MG/DL (1.8-2.4); POTASSIUM SERUM 4.1 MEQ/L (3.5-5.1); SODIUM LEVEL 135 MEQ/L (136-145)
[2018-07-06] MEDS: SYMBICORT 160/4.5MCG INHALER 6GM INH SCH ×2 (07:54→19:56)
[2018-07-06 08:00] VITALS: BP 100/46
[2018-07-06] MEDS: ASPIRIN 81 MG ENTERIC TAB PO SCH (08:43)
[2018-07-06] MEDS: ENOXAPARIN 80 MG/0.8 ML SYRINGE (J1650) SC SCH ×2 (08:43→21:35)
[2018-07-06] MEDS: PANTOPRAZOLE 40MG TAB (PROTONIX) PO SCH (08:44)
[2018-07-06] MEDS: MELOXICAM (MOBIC) 7.5 MG TAB PO SCH (08:44)
[2018-07-06] MEDS: DOCUSATE SODIUM 100 MG CAP PO SCH ×2 (08:44→21:00)
[2018-07-06] MEDS: MAGNESIUM OXIDE 400 MG TAB (MAG-OX) PO SCH ×2 (08:44→21:36)
[2018-07-06] MEDS: LORATADINE 10 MG TAB PO SCH (08:44)
[2018-07-06] MEDS: TOBRAMYCIN INHAL 300 MG/5 ML SOLN INH SCH ×2 (09:06→23:59)
[2018-07-06 12:00] VITALS: BP 120/50
[2018-07-06] MEDS: VANCOMYCIN HCL 1,000 MG, VIAL MATE ADAPTER 1 EACH in D5W 250 ML IV SCH (14:21)
--- NOTE | 2018-07-06 14:47 | IPNPDOC ---
Date Seen The patient was seen on 07/06/18. Progress Note SUBJECTIVE: Pt examined at bedside, feeling better today. No reported issues overnight. Breathing is improving, no longer febrile, renal function is improved to baseline, CRP stable, and blood pressure maintaining well. OBJECTIVE: VITAL SIGNS: Listed below. GENERAL: Alert and awake. Conversant. NAD, resting comfortably in bed HEENT: Normocephalic, atraumatic. EOMI, anicteric sclera CARDIOVASCULAR: irregular rhythm, reg rate, no audible murmurs LUNGS: Decreased breath sounds throughout. Rhonchi with mild wheezing. Is on his baseline 4L NC ABDOMEN: Soft, nontender and nondistended EXTREMITIES: 2+ radial pulses b/l. No edema : Chronic Sam in place with yellow o/p LABORATORY DATA: Listed below. ASSESSMENT AND PLAN: --Pseudomonas Pneumonia * no longer septic. Improved after starting Vanc 07/05. Repeat cultures are n egative, as expected given that he has been on long-term antibiotics recently. His immunocompromised state makes him a high-risk pt at baseline, further complicated by his over [id number] hospitalization. * Hypotension is also resolved and is stable since starting hydrocortisone 07/05. Monitor today, and plan to taper down tomorrow * Continue 10-day course Levaquin & Tobramycin-started 06/30. S/p failed tx with 14-day Cefdinir completed 06/28. At baseline, is on 3-4L NC. * continue duoneb and symbicort * Of note, 2 nodular densities noted on 06/14 CT chest. Discussed with patient to follow-up outpatient for these lung nodules, possible concern for malignancy. Patient relayed understanding --Symptomatic hypotension in setting of baseline HTN * resolved on Hydrocortisone. Will d/c IVF and monitor. Home Lasix & lisinopril on hold. Continue Lopressor given controlled Afib. --AL * Likely 2/2 hypotensive episodes. Resolved today S/P IVF, holding nephrotoxins, and improved blood pressure --Anemia * Hgb down from 9.2 to 8.2 today, likely has hemodilutional component. No occult blood loss. Appears to be around baseline 8-9. Monitor. --Gross Hematuria * resolved, likely 2/2 renal cysts vs trauma from chronic Sam. H&H & renal fxn stable. No abd pain or distension. Good urine o/p * Per Urology-continue ASA & Lovenox * s/p 14-day course Diflucan completed 06/25 --Penile Laceration * Per Dr. Mancilla, o/p f/u for possible suprapubic catheter, nothing to do inpatient. Keep catheter up to the abdomen --Urinary tract infection 2/2 chronic indwelling Sam catheter. * s/p 14 days of Diflucan for +yeast in urine-completed 06/25 --Systolic and diastolic dysfunction * EF 45-50% as of 06/07/1819. Grade 1 diastolic dysfunction with mild LVH * stable, on Lasix & Lisinopril --Near syncope * Multifactorial: UTI, pneumonia, Lopressor requiring dose adjustment for orthostatic hypotension. Is improved and stable now * Continue physical therapy & OT. --Paroxysmal atrial fibrillation with hx of PE * rate controlled on po lopressor after dosages adjusted from home dose of 50mg daily to 25mg q8h * on Lovenox in lieu of his home edoxaban, which we do not carry on formulary --COPD * on baseline, 4L NC. Maintain Oxygen sat between 88-92% and continue home nebs --Rheumatoid arthritis & Discoid Lupus * [facility] * Home methotrexate and Plaquenil & chronic 5mg prednisone on hold as he is being treated for active infections: PNA and UTI --BPH * continue home Flomax --GERD * continue po PPI --Dyslipidemia * continue home statin and ASA DVT ppx: Lovenox. DISPOSITION: pending clinical improvement. VS, I&O, 24H, Fishbone Vital Signs/I&O Vital Signs Date Time Temp Pulse Resp B/P (MAP) Pulse Ox O2 Delivery O2 Flow Rate FiO2 07/06/18 14:20 84 120/50 07/06/18 12:00 97.1 18 97 4.0 07/06/18 04:00 Nasal Cannula I&O- Last 24 Hours up to 6 AM 07/06/18 06:00 Intake Total 2680 ml Output Total 700 ml Balance 1980 ml Laboratory Data 24H LABS Laboratory Tests 2 07/06/18 06:00: Nucleated Red Blood Cells % (auto) 0.0, Anion Gap 5L, Glomerular Filtration Rate > 60.0, Blood Urea Nitrogen 19H, Creatinine 1.04, Sodium Level 135L, Potassium Level 4.1, Chloride Level 104, Carbon Dioxide Level 26, Calcium Level 6.8L, Magnesium Level 2.4, C-Reactive Protein, Quantitative 10.70H CBC/BMP Laboratory Tests 07/06/18 06:00 Red Blood Count 2.90 L, Mean Corpuscular Volume 87.6, Mean Corpuscular Hemo globin 28.3, Mean Corpuscular Hemoglobin Concent 32.3, Red Cell Distribution Width 17.8 H, Calcium Level 6.8 L Microbiology Microbiology 07/05/18 Blood Culture - Preliminary, Resulted No growth after 24 hours . All specim... 07/05/18 Blood Culture - Preliminary, Resulted No growth after 24 hours . All specim... 07/05/18 Respiratory Virus Panel (PCR) ([facility]) - Final, Complete 07/05/18 Urine Culture, Received Pending 06/27/18 Urine Culture - Final, Complete GME ATTESTATION GME ATTESTATION My faculty preceptor for this patient encounter was physically present during the encounter and was fully available. All aspects of the patient interview, examination, medical decision making process, and medical care plan development were reviewed and approved by the faculty preceptor. The faculty preceptor is aware and concurs with the plan as stated in the body of this note and will attest to such by his/her cosignature. DEEPAK GOMES DO Jul 06, 2018 14:47
[2018-07-06 16:00] VITALS: BP 146/70
[2018-07-06 20:00] VITALS: BP 115/54
[2018-07-06] MEDS: TAMSULOSIN 0.4 MG CAP PO SCH (21:36)
[2018-07-06] MEDS: ATORVASTATIN 10 MG TAB PO SCH (21:36)
[2018-07-07] VITALS (15 sets, daily range): BP systolic 118–137; BP diastolic 58–84; O2SAT 95–99
[2018-07-07] MEDS: IPRATROPIUM 0.5MG/ALBUTEROL 2.5MG INH SOL UD 3ML (DUONEB)(J7620) NEB SCH ×5 (04:00→23:33)
[2018-07-07 05:10] LABS: HEMATOCRIT 24.5 % (42.0-52.0); HEMOGLOBIN 7.8 g/dl (13.5-17.5); MEAN CORPUSCULAR HEMOGLOBIN 28.3 pg (27.0-33.0); MEAN CORPUSCULAR HGB CONC 31.8 g/dl (32.0-36.5); MEAN CORPUSCULAR VOLUME 88.8 fl (80.0-96.0); PLATELET COUNT, AUTOMATED 116 10^3/uL (150-450); RED BLOOD COUNT 2.76 10^6/uL (4.30-6.10); WHITE BLOOD COUNT 9.2 10^3/uL (4.0-10.0)
[2018-07-07] MEDS: HYDROCORTISONE 100 MG/2 ML VIAL (J1720) IV SCH ×2 (05:24→16:40)
[2018-07-07] MEDS: METOPROLOL TART 25 MG TABLET PO SCH ×3 (05:24→21:59)
[2018-07-07] MEDS: LevoFLOXacin 750 MG TABLET PO SCH (05:24)
[2018-07-07] MEDS: SLF 3 ML SYR IV SCH ×3 (05:25→22:00)
[2018-07-07 05:26] LABS: BLOOD UREA NITROGEN 18 MG/DL (7-18); CALCIUM LEVEL 7.1 MG/DL (8.8-10.2); CARBON DIOXIDE LEVEL 27 MEQ/L (21-32); CHLORIDE LEVEL 104 MEQ/L (98-107); CREATININE FOR GFR 0.93 MG/DL (0.70-1.30); GLOMERULAR FILTRATION RATE > 60.0 (>35); GLUCOSE, FASTING 127 MG/DL (70-100); MAGNESIUM LEVEL 2.4 MG/DL (1.8-2.4); POTASSIUM SERUM 4.2 MEQ/L (3.5-5.1); SODIUM LEVEL 137 MEQ/L (136-145)
[2018-07-07] MEDS: SYMBICORT 160/4.5MCG INHALER 6GM INH SCH ×2 (07:23→19:29)
[2018-07-07] MEDS: TOBRAMYCIN INHAL 300 MG/5 ML SOLN INH SCH ×2 (07:23→19:29)
[2018-07-07] MEDS: DOCUSATE SODIUM 100 MG CAP PO SCH ×2 (09:00→22:00)
[2018-07-07] MEDS: PANTOPRAZOLE 40MG TAB (PROTONIX) PO SCH (09:42)
[2018-07-07] MEDS: MELOXICAM (MOBIC) 7.5 MG TAB PO SCH (09:42)
[2018-07-07] MEDS: LORATADINE 10 MG TAB PO SCH (09:42)
[2018-07-07] MEDS: ASPIRIN 81 MG ENTERIC TAB PO SCH (09:42)
[2018-07-07] MEDS: MAGNESIUM OXIDE 400 MG TAB (MAG-OX) PO SCH ×2 (09:42→21:58)
[2018-07-07] MEDS: ENOXAPARIN 80 MG/0.8 ML SYRINGE (J1650) SC SCH ×2 (09:43→21:58)
--- NOTE | 2018-07-07 11:57 | IPNPDOC ---
Text Note Date of Service The patient was seen on 07/07/18. NOTE SUBJECTIVE: Pt examined at bedside, feeling better today. Continues on broad- spectrum antibiotics, no longer febrile. Blood pressure remaining stable, on IV steroids. Of note, his hemoglobin was falling to 7.8 this morning, however no acute bleeds. No events overnight or complaints this morning. OBJECTIVE: VITAL SIGNS: Listed below. GENERAL: Alert and awake. Conversant. NAD, resting comfortably in bed HEENT: Normocephalic, atraumatic. EOMI, anicteric sclera CARDIOVASCULAR: irregular rhythm, reg rate, no audible murmurs LUNGS: Decreased breath sounds throughout. Rhonchorous throughout with improving mild wheezes r>l. Is on his baseline 4L NC ABDOMEN: Soft, nontender and nondistended EXTREMITIES: 2+ radial pulses b/l. No edema : Chronic Sam in place with yellow o/p LABORATORY DATA: Listed below. ASSESSMENT AND PLAN: Anemia * Hgb down trended gradually from 9 on admission to 7.8 this morning. May largely be a hemodilutional component, given that he has dropped 1g in past 24 hours and has received approximately 3L fluid. * No occult bleed. No melena, hematuria, hematochezia. No abdominal pain. Baseline ~8-9 * Will recheck later in the afternoon, and if remains below 8, transfuse 1 unit. Patient is consented for transfusion with form in chart. --Pseudomonas Pneumonia * Continues to improve. Started Vanc 07/05, in addition to continuing 10-day course Levaquin & Tobramycin-started 06/30. He is s/p failed tx with 14-day Cefdinir completed 06/28. His immunocompromised state makes him a high-risk pt at baseline, further complicated by his over [id number] hospitalization. * BP maintaining well since starting hydrocortisone 07/05. Will start tapering down * Is at his baseline 3-4L NC. Continue duoneb and symbicort --Symptomatic hypotension in setting of baseline HTN * resolved on Hydrocortisone. Start tapering. Home Lasix & lisinopril on hold. Continue Lopressor given controlled Afib. --Lung Nodule * 2 nodular densities noted on 06/14 CT chest. Pt to f/u o/p, concern for possible malignancy --Gross Hematuria resolved, likely 2/2 renal cysts vs trauma from chronic Sam. H&H & renal fxn stable. No abd pain or distension. Good urine o/p Per Urology-continue ASA & Lovenox s/p 14-day course Diflucan completed 06/25 --Penile Laceration Per Dr. Mancilla, o/p f/u for possible suprapubic catheter, nothing to do inpatient. Keep catheter up to the abdomen --Urinary tract infection 2/2 chronic indwelling Sam catheter. 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 Grade 1 diastolic dysfunction with mild LVH stable, on Lasix & Lisinopril --Near syncope Multifactorial: UTI, pneumonia, Lopressor requiring dose adjustment for orthostatic hypotension. Is improved and stable now Continue physical therapy & OT. --Paroxysmal atrial fibrillation with hx of PE rate controlled on po lopressor after dosages adjusted from home dose of 50mg daily to 25mg q8h on Lovenox in lieu of his home edoxaban, which we do not carry on formulary --COPD on baseline, 4L NC. Maintain Oxygen sat between 88-92% and continue home nebs --Rheumatoid arthritis & Discoid Lupus [facility] Home methotrexate and Plaquenil & chronic 5mg prednisone on hold as he is being treated for active infections: PNA and UTI --BPH continue home Flomax --GERD continue po PPI --Dyslipidemia continue home statin and ASA DVT ppx: Lovenox. DISPOSITION: pending clinical improvement. Will downgrade to Med/Surg. VSHeather, I+O VSHaether, I+O Laboratory Tests 07/07/18 04:41 Red Blood Count 2.76 L, Mean Corpuscular Volume 88.8, Mean Corpuscular Hemoglobin 28.3, Mean Corpuscular Hemoglobin Concent 31.8 L, Red Cell Distribution Width 17.8 H, Calcium Level 7.1 L Vital Signs Date Time Temp Pulse Resp B/P (MAP) Pulse Ox O2 Delivery O2 Flow Rate FiO2 07/07/18 08:00 97.6 75 20 137/62 (87) 96 4.0 07/06/18 22:12 Nasal Cannula I&O- Last 24 Hours up to 6 AM 07/07/18 06:00 Intake Total 1910 ml Output Total 675 ml Balance 1235 ml GME ATTESTATION GME ATTESTATION My faculty preceptor for this patient encounter was physically present during the encounter and was fully available. All aspects of the patient interview, examination, medical decision making process, and medical care plan development were reviewed and approved by the faculty preceptor. The faculty preceptor is aware and concurs with the plan as stated in the body of this note and will attest to such by his/her cosignature. DEEPAK GOMES DO Jul 07, 2018 11:57
[2018-07-07 13:24] LABS: HEMATOCRIT 26.6 % (42.0-52.0); HEMOGLOBIN 8.4 g/dl (13.5-17.5)
[2018-07-07] MEDS: VANCOMYCIN HCL 1,000 MG, VIAL MATE ADAPTER 1 EACH in D5W 250 ML IV SCH (14:09)
[2018-07-07] MEDS: ATORVASTATIN 10 MG TAB PO SCH (21:59)
[2018-07-07] MEDS: TAMSULOSIN 0.4 MG CAP PO SCH (22:00)
[2018-07-08] VITALS (15 sets, daily range): BP systolic 131–140; BP diastolic 60–88; O2SAT 95–99
[2018-07-08] MEDS: IPRATROPIUM 0.5MG/ALBUTEROL 2.5MG INH SOL UD 3ML (DUONEB)(J7620) NEB SCH ×7 (04:07→23:25)
[2018-07-08] MEDS: LevoFLOXacin 750 MG TABLET PO SCH (05:39)
[2018-07-08] MEDS: METOPROLOL TART 25 MG TABLET PO SCH ×3 (05:39→22:38)
[2018-07-08] MEDS: SLF 3 ML SYR IV SCH ×3 (05:40→22:39)
[2018-07-08] MEDS: HYDROCORTISONE 100 MG/2 ML VIAL (J1720) IV SCH ×2 (05:40→17:18)
[2018-07-08 05:42] LABS: HEMATOCRIT 25.5 % (42.0-52.0); HEMOGLOBIN 8.1 g/dl (13.5-17.5); MEAN CORPUSCULAR HEMOGLOBIN 28.5 pg (27.0-33.0); MEAN CORPUSCULAR HGB CONC 31.8 g/dl (32.0-36.5); MEAN CORPUSCULAR VOLUME 89.8 fl (80.0-96.0); PLATELET COUNT, AUTOMATED 112 10^3/uL (150-450); RED BLOOD COUNT 2.84 10^6/uL (4.30-6.10); WHITE BLOOD COUNT 9.3 10^3/uL (4.0-10.0)
[2018-07-08 06:16] LABS: BLOOD UREA NITROGEN 17 MG/DL (7-18); CALCIUM LEVEL 7.7 MG/DL (8.8-10.2); CARBON DIOXIDE LEVEL 29 MEQ/L (21-32); CHLORIDE LEVEL 106 MEQ/L (98-107); CREATININE FOR GFR 0.92 MG/DL (0.70-1.30); GLOMERULAR FILTRATION RATE > 60.0 (>35); GLUCOSE, FASTING 86 MG/DL (70-100); MAGNESIUM LEVEL 2.2 MG/DL (1.8-2.4); POTASSIUM SERUM 4.4 MEQ/L (3.5-5.1); SODIUM LEVEL 139 MEQ/L (136-145)
[2018-07-08] MEDS: SYMBICORT 160/4.5MCG INHALER 6GM INH SCH ×2 (07:44→20:18)
[2018-07-08] MEDS: TOBRAMYCIN INHAL 300 MG/5 ML SOLN INH SCH ×2 (07:44→20:18)
[2018-07-08] MEDS: ENOXAPARIN 80 MG/0.8 ML SYRINGE (J1650) SC SCH ×2 (08:15→22:39)
[2018-07-08] MEDS: VANCOMYCIN HCL 1,000 MG, VIAL MATE ADAPTER 1 EACH in D5W 250 ML IV SCH (08:15)
[2018-07-08] MEDS: ASPIRIN 81 MG ENTERIC TAB PO SCH (08:16)
[2018-07-08] MEDS: MELOXICAM (MOBIC) 7.5 MG TAB PO SCH (08:16)
[2018-07-08] MEDS: MAGNESIUM OXIDE 400 MG TAB (MAG-OX) PO SCH ×2 (08:16→22:38)
[2018-07-08] MEDS: PANTOPRAZOLE 40MG TAB (PROTONIX) PO SCH (08:16)
[2018-07-08] MEDS: DOCUSATE SODIUM 100 MG CAP PO SCH ×2 (08:16→22:38)
[2018-07-08] MEDS: LORATADINE 10 MG TAB PO SCH (08:16)
[2018-07-08 09:22] LABS: VANCOMYCIN RANDOM 12.9 UG/ML
--- NOTE | 2018-07-08 09:45 | PHACANCOPD ---
PHARMACY VANCOMYCIN DOSING Pt Demographics Demographics Patient Age:88 , Weight:76.000 , Gender: male Adjusted Body Weight Date: 06/15/18, Adjusted Body Weight: [81.8] Kg Events Past 24 Hours Events Past 24 Hours: YES: Change in CrCl; NO: Dialysis, Diuretic Therapy, Fever, Elevation in WBC, Pending Diagnostics, Pending Procedures, Other Vancomycin Vancomycin indication: Hospital acquired pneumonia Vancomycin Target Ranges: 15-20 mcg/ml Vancomycin Load Y/N: Yes Load Dose Date Time Vancomycin Load Dose: 1750 MG Date: 07/05/18 Time:1400 Vancomycin Dose Date: 07/08/18. Current Vancomycin Dose: [1g IV q12h @21] Date: 07/07/18. Current Vancomycin Dose: [1g IV q18h @14] Date: 06/15/18. Current Vancomycin Dose: [1 GM IV Q24H] Intermittent Dosing?: No Labs Labs Item Value Date Time Random Vancomycin Level 12.9 UG/ML 07/08/18 0505 Item Value Date Time Vancomycin Level Trough 9.2 UG/ML L 07/07/18 1258 Creatinine 1.04 MG/DL 07/06/18 0600 Creatinine 0.93 MG/DL 07/07/18 0441 Creatinine 0.92 MG/DL 07/08/18 0505 Micro Microbiology 07/05/18 Blood Culture - Preliminary, Resulted No Growth after 48 hours. All Specime... 07/05/18 Blood Culture - Preliminary, Resulted No Growth after 48 hours. All Specime... 07/07/18 Gram Stain - Final, Resulted 07/07/18 Sputum Culture, Resulted Pending 07/05/18 Respiratory Virus Panel (PCR) ([facility]) - Final, Complete 07/05/18 Urine Culture - Final, Complete Creatinine Clearance Date:07/08/18. Creatinine Clearance: [~60 ml/min]. Pending Labs vanco trough 07/09 @08:00 Assessment and Plan Maintaining Current Dose?: No Reason for dose change: Change in serum Cr, Trough too low Pharmacist Note Pharmacist Note Date: 07/08/18. Pharmacist note: Pt continues on levaquin po, abner nebs and vancomycin. SCr has improved, vancomycin trough drawn yesterday was low at 9.2 mcg/ml. Repeat level this morning drawn ~3 hours before the dose (15 hours since last dose) was 12.9 mcg/ml. I have changed his vancomycin dosing to 1g IV q12h. I will repeat a trough tomorrow. Cultures are pending. We will continue to monitor and make adjustments as necessary. 07/05/18: Pharmacy consulted for re-initiation of Vancomycin for the [facility] ed pneumonia, goal trough of 15-20 mcg/ml. Slight jump in patients CRP, spiked temperature over night, and WBC are also elevated. Per previous consult at the beginning of the month, I loaded him with 1750 mg, as his weight is slightly less than previous consult, and will follow with 1 gram IV every 24 hours. Pharmacy will continue to monitor and make adjustments as needed. Hamilton Barrett Pharm.D. Jul 08, 2018 09:29
--- NOTE | 2018-07-08 12:14 | IPNPDOC ---
Subjective Date Seen The patient was seen on 07/08/18. Subjective Chief Complaint/HPI Patient seen and examined at the bedside. Reports that his respiratory status is improving. No acute overnight events noted. Objective Physical Examination General Exam: Positive: Alert, Cooperative, No Acute Distress ENT Exam: Positive: Atraumatic, Mucous membr. moist/pink Neck Exam: Negative: JVD Chest Exam: Positive: Diminished Heart Exam: Positive: Rate Normal, Normal S1, Normal S2 Telemetry: Positive: Atrial fibrillation Abdomen Exam: Positive: Soft; Negative: Tenderness Extremity Exam: Negative: Tenderness, Swelling Psych Exam: Positive: Oriented x 3 Assessment /Plan Plan/VTE VTE Prophylaxis Ordered?: Yes Plan Pseudomonas Pneumonia Continue on Levaquin and Tobramycin until 07/09/18 Respiratory status continues to improve at this time Continue duoneb and symbicort We will cont to have the patient work with PT Anemia Hgb down trended gradually from 9.3 on admission to 8.1 this AM No overt source of bleeding at this time We will cont to monitor H&H and transfuse for a Hgb <8.0 Symptomatic hypotension, resolved Patient on a tapering dose of stress dose steroids (chronically on Prednisone 5mg daily) Lung Nodule 2 nodular densities noted on 06/14 CT chest. Pt to f/u o/p, concern for possible malignancy Discussed with the patient at length, he has verbalized understanding of the same. He reports that he will f/u as an outpatient to get repeat imaging done to follow up resolution vs need for further work up. Urinary tract infection 2/2 chronic indwelling Sam catheter. s/p 14 days of Diflucan for +yeast in urine-completed 06/[address] Mancilla of Urology, o/p f/u for possible suprapubic catheter. Systolic and diastolic dysfunction EF 45-50% as of 06/07/1819. Grade 1 diastolic dysfunction with mild LVH Paroxysmal atrial fibrillation with hx of PE Cont Lovenox in lieu of his home edoxaban, which we do not carry on formulary Cont Metoprolol for rate control COPD On baseline, 4L NC. Maintain Oxygen sat between 88-92% and continue home nebs Rheumatoid arthritis & Discoid Lupus Home methotrexate and Plaquenil on hold as he is being treated for active infections: PNA and UTI BPH Continue home Flomax GERD Continue PPI Dyslipidemia Continue home Statin and ASA DVT ppx: Lovenox. DISPOSITION: pending clinical improvement, PT Clearance. VS, I&O, 24H, Fishbone Vital Signs/I&O Vital Signs Date Time Temp Pulse Resp B/P (MAP) Pulse Ox O2 Delivery O2 Flow Rate FiO2 07/08/18 11:00 82 99 4.0 07/08/18 11:00 Nasal Cannula 07/08/18 08:00 98.0 18 136/60 (85) I&O- Last 24 Hours up to 6 AM 07/08/18 06:00 Intake Total 630 ml Output Total 1075 ml Balance -445 ml Laboratory Data 24H LABS Laboratory Tests 2 07/07/18 12:58: Vancomycin Level Trough 9.2L 07/08/18 05:05: Nucleated Red Blood Cells % (auto) 0.0, Anion Gap 4L, Glomerular Filtration Rate > 60.0, Blood Urea Nitrogen 17, Creatinine 0.92, Sodium Level 139, Potassium Level 4.4, Chloride Level 106, Carbon Dioxide Level 29, Calcium Level 7.7L, Magnesium Level 2.2, Random Vancomycin Level 12.9 CBC/BMP Laboratory Tests 07/07/18 13:00 07/08/18 05:05 Red Blood Count 2.84 L, Mean Corpuscular Volume 89.8, Mean Corpuscular Hemoglo bin 28.5, Mean Corpuscular Hemoglobin Concent 31.8 L, Red Cell Distribution Width 17.9 H, Calcium Level 7.7 L Microbiology Microbiology 07/05/18 Blood Culture - Preliminary, Resulted No Growth after 48 hours. All Specime... 07/05/18 Blood Culture - Preliminary, Resulted No Growth after 72 hours. All specime... 07/07/18 Gram Stain - Final, Resulted 07/07/18 Sputum Culture, Resulted Pending 07/05/18 Respiratory Virus Panel (PCR) ([facility]) - Final, Complete 07/05/18 Urine Culture - Final, Complete MARIANO INMAN MD Jul 08, 2018 12:14
[2018-07-08] MEDS: IPRATROPIUM 0.5MG/ALBUTEROL 2.5MG INH SOL UD 3ML (DUONEB)(J7620) NEB PRN (18:41)
[2018-07-08] MEDS ORDERED: VANCOMYCIN HCL 1,000 MG, VIAL MATE ADAPTER 1 EACH in D5W 250 ML IV SCH (21:00)
[2018-07-08] MEDS: ACETAMINOPHEN TAB 650MG DOSE (2X325MG) PO PRN (22:37)
[2018-07-08] MEDS: ATORVASTATIN 10 MG TAB PO SCH (22:38)
[2018-07-08] MEDS: TAMSULOSIN 0.4 MG CAP PO SCH (22:38)
[2018-07-09 02:00] VITALS: BP 123/64
[2018-07-09] MEDS: IPRATROPIUM 0.5MG/ALBUTEROL 2.5MG INH SOL UD 3ML (DUONEB)(J7620) NEB SCH ×6 (04:00→23:33)
[2018-07-09 06:29] LABS: MEAN CORPUSCULAR HEMOGLOBIN 28.7 pg (27.0-33.0); MEAN CORPUSCULAR VOLUME 89.6 fl (80.0-96.0); PLATELET COUNT, AUTOMATED 133 10^3/uL (150-450); RED BLOOD COUNT 2.79 10^6/uL (4.30-6.10); WHITE BLOOD COUNT 7.6 10^3/uL (4.0-10.0)
[2018-07-09] MEDS: METOPROLOL TART 25 MG TABLET PO SCH ×3 (06:30→21:17)
[2018-07-09] MEDS: SLF 3 ML SYR IV SCH ×3 (06:30→21:16)
[2018-07-09] MEDS: LevoFLOXacin 750 MG TABLET PO SCH (06:30)
[2018-07-09] MEDS: HYDROCORTISONE 100 MG/2 ML VIAL (J1720) IV SCH ×2 (06:30→18:06)
[2018-07-09 06:44] VITALS: BP 132/67
[2018-07-09 06:52] LABS: BLOOD UREA NITROGEN 13 MG/DL (7-18); C REACTIVE PROTEIN QUANTITATIV 2.93 MG/DL (0.00-0.30); CALCIUM LEVEL 7.5 MG/DL (8.8-10.2); CARBON DIOXIDE LEVEL 29 MEQ/L (21-32); CHLORIDE LEVEL 105 MEQ/L (98-107); CREATININE FOR GFR 0.88 MG/DL (0.70-1.30); GLOMERULAR FILTRATION RATE > 60.0 (>35); GLUCOSE, FASTING 78 MG/DL (70-100); POTASSIUM SERUM 4.3 MEQ/L (3.5-5.1); SODIUM LEVEL 138 MEQ/L (136-145)
[2018-07-09] MEDS: MAGNESIUM OXIDE 400 MG TAB (MAG-OX) PO SCH ×2 (08:41→21:16)
[2018-07-09] MEDS: PANTOPRAZOLE 40MG TAB (PROTONIX) PO SCH (08:41)
[2018-07-09] MEDS: LORATADINE 10 MG TAB PO SCH (08:41)
[2018-07-09] MEDS: ASPIRIN 81 MG ENTERIC TAB PO SCH (08:41)
[2018-07-09] MEDS: MELOXICAM (MOBIC) 7.5 MG TAB PO SCH (08:41)
[2018-07-09] MEDS: ENOXAPARIN 80 MG/0.8 ML SYRINGE (J1650) SC SCH ×2 (08:41→21:15)
[2018-07-09] MEDS: DOCUSATE SODIUM 100 MG CAP PO SCH ×2 (08:41→21:16)
[2018-07-09] MEDS: TOBRAMYCIN INHAL 300 MG/5 ML SOLN INH SCH ×2 (09:04→20:00)
[2018-07-09] MEDS: SYMBICORT 160/4.5MCG INHALER 6GM INH SCH ×2 (09:05→21:00)
--- NOTE | 2018-07-09 09:36 | IPNPDOC ---
Text Note Date of Service The patient was seen on 07/09/18. NOTE SUBJECTIVE: Pt examined at bedside, continues to improve. No issues overnight. OBJECTIVE: VITAL SIGNS: Listed below. GENERAL: Alert and awake. Conversant. NAD, resting comfortably in bed HEENT: Normocephalic, atraumatic. EOMI, anicteric sclera CARDIOVASCULAR: irregular rhythm, reg rate, no audible murmurs LUNGS: Decreased breath sounds throughout. Rhonchorous throughout with improving mild wheezes. Is on his baseline 4L [place] ABDOMEN: Soft, nontender and nondistended EXTREMITIES: 2+ radial pulses b/l. No edema : Chronic Sam in place with yellow o/p LABORATORY DATA: Listed below. ASSESSMENT AND PLAN: --Pseudomonas Pneumonia * Continues to improve. CRP trending down. Started Vanc 07/05, and will complete 10-day course Levaquin & Tobramycin today-started 06/30. His immunocompromised state makes him a high-risk pt at baseline, further complicated by his over [id number] hospitalization. * Is at his baseline 3-4L NC. Continue duoneb and symbicort * work with PT --Anemia * Hgb wavering ~8, baseline ~9. No overt bleed. No melena, hematuria, hematochezia. No abdominal pain. * Will recheck later today nad transfuse as needed to maintain Hgb >8. Consent in chart --Symptomatic hypotension in setting of baseline HTN * resolved on Hydrocortisone. Continue tapering. Home Lasix & lisinopril on hold. Continue Lopressor given controlled Afib. --Lung Nodule 2 nodular densities noted on 06/14 CT chest. Pt to f/u o/p, concern for possible malignancy. Discussed with pt and he relays understanding --Gross Hematuria resolved, likely 2/2 renal cysts vs trauma from chronic Sam. H&H & renal fxn stable. No abd pain or distension. Good urine o/p Per Urology-continue ASA & Lovenox s/p 14-day course Diflucan completed 06/25 --Penile Laceration Per Dr. Mancilla, o/p f/u for possible suprapubic catheter, nothing to do inpatient. Keep catheter up to the abdomen --Urinary tract infection 2/2 chronic indwelling Sam catheter. 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 Grade 1 diastolic dysfunction with mild LVH Lasix & Lisinopril on hold, vol status stable --Paroxysmal atrial fibrillation with hx of PE rate controlled on po lopressor after dosages adjusted from home dose of 50mg daily to 25mg q8h on Lovenox in lieu of his home edoxaban, which we do not carry on formulary --COPD on baseline, 4L NC. Maintain Oxygen sat between 88-92% and continue home nebs --Rheumatoid arthritis & Discoid Lupus Verified per [place] records in chart Home methotrexate and Plaquenil & chronic 5mg prednisone on hold as he is being treated for active infections: PNA and UTI --BPH continue home Flomax --GERD continue po PPI --Dyslipidemia continue home statin and ASA DVT ppx: Lovenox. DISPOSITION: pending clinical improvement & PT. VS,Fishbone, I+O VS, Fishbone, I+O Laboratory Tests 07/09/18 06:14 Calcium Level 7.5 L 07/09/18 06:15 Red Blood Count 2.79 L, Mean Corpuscular Volume 89.6, Mean Corpuscular Hemoglobin 28.7, Mean Corpuscular Hemoglobin Concent 32.0, Red Cell Distribution Width 17.7 H Vital Signs Date Time Temp Pulse Resp B/P (MAP) Pulse Ox O2 Delivery O2 Flow Rate FiO2 07/09/18 06:44 97.2 98 20 132/67 (88) 98 4.0 07/08/18 17:00 Nasal Cannula I&O- Last 24 Hours up to 6 AM 07/09/18 06:00 Intake Total 1470 ml Output Total 975 ml Balance 495 ml GME ATTESTATION GME ATTESTATION My faculty preceptor for this patient encounter was physically present during the encounter and was fully available. All aspects of the patient interview, examination, medical decision making process, and medical care plan development were reviewed and approved by the faculty preceptor. The faculty preceptor is aware and concurs with the plan as stated in the body of this note and will attest to such by his/her cosignature. DEEPAK GOMES DO Jul 09, 2018 09:36
[2018-07-09 13:55] LABS: HEMOGLOBIN 9.2 g/dl (13.5-17.5)
[2018-07-09 14:45] VITALS: BP 128/60
[2018-07-09 21:00] VITALS: BP 139/69
[2018-07-09] MEDS: ATORVASTATIN 10 MG TAB PO SCH (21:16)
[2018-07-09] MEDS: ACETAMINOPHEN TAB 650MG DOSE (2X325MG) PO PRN (21:16)
[2018-07-09] MEDS: TAMSULOSIN 0.4 MG CAP PO SCH (21:17)
[2018-07-10] MEDS: IPRATROPIUM 0.5MG/ALBUTEROL 2.5MG INH SOL UD 3ML (DUONEB)(J7620) NEB SCH ×6 (05:04→23:36)
[2018-07-10 06:00] VITALS: BP 143/66
[2018-07-10] MEDS: HYDROCORTISONE 100 MG/2 ML VIAL (J1720) IV SCH (06:27)
[2018-07-10] MEDS: METOPROLOL TART 25 MG TABLET PO SCH ×3 (06:27→20:52)
[2018-07-10] MEDS: SLF 3 ML SYR IV SCH ×3 (06:27→20:52)
[2018-07-10 06:35] LABS: HEMATOCRIT 27.6 % (42.0-52.0); HEMOGLOBIN 8.7 g/dl (13.5-17.5); MEAN CORPUSCULAR HEMOGLOBIN 28.2 pg (27.0-33.0); MEAN CORPUSCULAR HGB CONC 31.5 g/dl (32.0-36.5); MEAN CORPUSCULAR VOLUME 89.3 fl (80.0-96.0); PLATELET COUNT, AUTOMATED 150 10^3/uL (150-450); RED BLOOD COUNT 3.09 10^6/uL (4.30-6.10); WHITE BLOOD COUNT 8.3 10^3/uL (4.0-10.0)
[2018-07-10 07:06] LABS: BLOOD UREA NITROGEN 14 MG/DL (7-18); C REACTIVE PROTEIN QUANTITATIV 2.19 MG/DL (0.00-0.30); CALCIUM LEVEL 7.5 MG/DL (8.8-10.2); CARBON DIOXIDE LEVEL 30 MEQ/L (21-32); CHLORIDE LEVEL 105 MEQ/L (98-107); CREATININE FOR GFR 0.86 MG/DL (0.70-1.30); GLOMERULAR FILTRATION RATE > 60.0 (>35); GLUCOSE, FASTING 75 MG/DL (70-100); POTASSIUM SERUM 4.3 MEQ/L (3.5-5.1); SODIUM LEVEL 140 MEQ/L (136-145)
--- NOTE | 2018-07-10 07:22 | IPN ---
DATE: 07/09/2018 Mr. Keene is having dinner tonight. He has a good appetite. He denies any nausea, vomiting or diarrhea. He states his cough is markedly improved. He has much less phlegm. He still has shortness of breath. He is on 4 liters nasal cannula. O2 sat is 96%. Temperature is 97.7, pulse 72, respirations 19 and blood pressure 128/60. Heart: Normal S1 and S2. No murmurs appreciated. Lungs: Inspiratory rhonchi with a few crackles at the bases. Abdomen: Soft, nontender. No hepatosplenomegaly. Extremities: Trace ankle edema. LABORATORY DATA: White count 7.6, hemoglobin 8, hematocrit 25, platelets 133. Sodium 138, potassium 4.3, chloride 105, bicarb 29, BUN 13, creatinine 0.88, glucose 78, calcium 7.5, CRP 2.93 down from 07/06/2018 at 10.7. Blood culture on 07/05/2018: Two sets were no growth after 72 hours. Urine culture on 07/05/2018 was negative. Respiratory panel negative. Sputum repeated on 07/07/2018 had many white cells, few gram positive cocci in pairs. Chest x-ray repeated on 07/05/2018 shows improving right lower lobe infiltrate. IMPRESSION: 1. Right lower lobe pneumonia with Pseudomonas mucoid colony, status post 10 days of by mouth Levaquin, tolerated well, and MARTINEZ Nebs. Levaquin be discontinued today. Tobramycin nebs will be continued until discharge. 2. Recurrent fever on 07/05/2018 and 07/06/2018, with no evidence of new infection. The patient had IV vancomycin for 72 hours until repeat cultures were negative and this had been discontinued on 07/08/2018 3. Chronic obstructive pulmonary disease (COPD). At baseline oxygen at 4 liters nasal cannula. PLAN: Continue with MARTINEZ Nebs while the patient is in the hospital. It will be very difficult to get it authorized as an outpatient. It may be worth trying sending it to his insurance and see if it will be authorized. Otherwise would discontinue on discharge.
[2018-07-10] MEDS: SYMBICORT 160/4.5MCG INHALER 6GM INH SCH ×2 (07:35→19:29)
[2018-07-10] MEDS: TOBRAMYCIN INHAL 300 MG/5 ML SOLN INH SCH ×2 (07:35→19:29)
[2018-07-10] MEDS: ASPIRIN 81 MG ENTERIC TAB PO SCH (08:35)
[2018-07-10] MEDS: MAGNESIUM OXIDE 400 MG TAB (MAG-OX) PO SCH ×2 (08:35→20:51)
[2018-07-10] MEDS: ENOXAPARIN 80 MG/0.8 ML SYRINGE (J1650) SC SCH ×2 (08:35→20:52)
[2018-07-10] MEDS: PANTOPRAZOLE 40MG TAB (PROTONIX) PO SCH (08:35)
[2018-07-10] MEDS: LORATADINE 10 MG TAB PO SCH (08:35)
[2018-07-10] MEDS: MELOXICAM (MOBIC) 7.5 MG TAB PO SCH (08:35)
[2018-07-10] MEDS: DOCUSATE SODIUM 100 MG CAP PO SCH ×2 (08:35→20:52)
[2018-07-10 14:00] VITALS: BP 128/89
[2018-07-10] MEDS: predniSONE 5 MG TAB PO SCH (17:14)
--- NOTE | 2018-07-10 18:33 | IPNPDOC ---
Text Note Date of Service The patient was seen on 07/10/18. NOTE SUBJECTIVE: Pt examined at bedside. No issues overnight or any complaints today. Stable and breathing better. Awaiting PT/OT. OBJECTIVE: VITAL SIGNS: Listed below. GENERAL: Alert and awake. Conversant. NAD, resting comfortably in bed HEENT: Normocephalic, atraumatic. EOMI, anicteric sclera CARDIOVASCULAR: irregular rhythm, reg rate, no audible murmurs LUNGS: Decreased breath sounds throughout. Rhonchi stable. Is on his baseline 4L [place] ABDOMEN: Soft, nontender and nondistended EXTREMITIES: 2+ radial pulses b/l. No edema : Chronic Sam in place with yellow o/p LABORATORY DATA: Listed below. ASSESSMENT AND PLAN: --Pseudomonas Pneumonia * Continues to improve. CRP stable. s/p 10-day course Levaquin 07/09. Per ID, continue Tobramycin till d/c and recommends continued use on discharge. We have reached out to social work to help pt obtain prior auth for Tobramycin as outpatient * Is at his baseline 3-4L NC. Continue duoneb and symbicort. Continue with PT/OT --Anemia * H&H stable, around baseline 8-9. No overt bleed. No melena, hematuria, hematochezia. No abdominal pain. * Transfuse as needed to maintain Hgb >8. Consent in chart --Symptomatic hypotension in setting of baseline HTN * resolved on Hydrocortisone. Tapered bari prednisone today. Continue tapering * Home Lasix & lisinopril on hold. Continue Lopressor given controlled Afib. --Lung Nodule * 2 nodular densities noted on 06/14 CT chest. Pt to f/u o/p, concern for possible malignancy. Discussed with pt and he relays understanding --Gross Hematuria resolved, likely 2/2 renal cysts vs trauma from chronic Sam. H&H & renal fxn stable. No abd pain or distension. Good urine o/p Per Urology-continue ASA & Lovenox s/p 14-day course Diflucan completed 06/25 --Penile Laceration Per Dr. Mancilla, o/p f/u for possible suprapubic catheter, nothing to do inpatient. Keep catheter up to the abdomen --Urinary tract infection 2/2 chronic indwelling Sam catheter. 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 Grade 1 diastolic dysfunction with mild LVH Lasix & Lisinopril on hold, vol status stable --Paroxysmal atrial fibrillation with hx of PE rate controlled on po lopressor after dosages adjusted from home dose of 50mg daily to 25mg q8h on Lovenox in lieu of his home edoxaban, which we do not carry on formulary --COPD on baseline, 4L NC. Maintain Oxygen sat between 88-92% and continue home nebs --Rheumatoid arthritis & Discoid Lupus Verified per [place] records in chart Home methotrexate and Plaquenil & chronic 5mg prednisone on hold as he is being treated for active infections: PNA and UTI --BPH continue home Flomax --GERD continue po PPI --Dyslipidemia continue home statin and ASA DVT ppx: Lovenox. DISPOSITION: pending PT/OT. Possible d/c this week, home with services. VS,Marie, I+O VS, Fishbone, I+O Laboratory Tests 07/10/18 06:22 Red Blood Count 3.09 L, Mean Corpuscular Volume 89.3, Mean Corpuscular Hemoglobin 28.2, Mean Corpuscular Hemoglobin Concent 31.5 L, Red Cell Distribution Width 17.9 H, Calcium Level 7.5 L Vital Signs Date Time Temp Pulse Resp B/P (MAP) Pulse Ox O2 Delivery O2 Flow Rate FiO2 07/10/18 14:56 78 128/89 07/10/18 14:00 97.1 18 95 2.0 07/08/18 17:00 Nasal Cannula I&O- Last 24 Hours up to 6 AM 07/10/18 06:00 Intake Total 840 ml Output Total 550 ml Balance 290 ml GME ATTESTATION GME ATTESTATION My faculty preceptor for this patient encounter was physically present during the encounter and was fully available. All aspects of the patient interview, examination, medical decision making process, and medical care plan development were reviewed and approved by the faculty preceptor. The faculty preceptor is aware and concurs with the plan as stated in the body of this note and will at test to such by his/her cosignature. DEEPAK GOMES DO Jul 10, 2018 18:33
[2018-07-10] MEDS: ATORVASTATIN 10 MG TAB PO SCH (20:52)
[2018-07-10] MEDS: TAMSULOSIN 0.4 MG CAP PO SCH (20:52)
[2018-07-10 22:00] VITALS: BP 128/65
[2018-07-11] MEDS: IPRATROPIUM 0.5MG/ALBUTEROL 2.5MG INH SOL UD 3ML (DUONEB)(J7620) NEB SCH ×4 (04:03→15:26)
[2018-07-11 05:55] VITALS: BP 143/62
[2018-07-11] MEDS: SLF 3 ML SYR IV SCH ×2 (05:59→13:25)
[2018-07-11] MEDS: predniSONE 5 MG TAB PO SCH (05:59)
[2018-07-11] MEDS: METOPROLOL TART 25 MG TABLET PO SCH ×2 (06:00→15:04)
--- NOTE | 2018-07-11 06:12 | IPN ---
DATE: 07/10/2018 Mr. Keene seems to be in a good mood today. He was seen while having dinner. His was at the bedside. He is anxious to go home. He has no nausea, vomiting, diarrhea, abdominal pain, fever, or chills. Cough is less productive. His states that he does not have a nebulizer at home and would like a machine. His IV needs to be changed today and the nurse was wondering whether it could be discontinued. PHYSICAL EXAMINATION: Temperature is 97.1, pulse 78, respirations 18, blood pressure 128/89, O2 sat 95% on 2 liters nasal cannula. The patient usually uses 4 liters at baseline at home. Heart: Irregularly irregular. Lungs: Expiratory rhonchi bilaterally. Abdomen: Soft, nontender. LABORATORY DATA: White count 8.3, hemoglobin 8.7, hematocrit 27.6, platelets 150. Sodium 140, potassium 4.3, chloride 105, bicarb 30, BUN 14, creatinine 0.86, glucose 75, calcium 7.5, CRP 2.19. Sputum culture from 07/07/2018 had only a few yeastlike organisms with normal diana present. IMPRESSION: 1. Pseudomonas pneumonia with chest x-ray showing improvement in right lower lobe infiltrate. The patient has finished 10 days of by mouth Levaquin and MARTINEZ nebs and repeat sputum culture is negative. 2. Chronic obstructive pulmonary disease (COPD), on prednisone 5 mg twice a day and 2 liters oxygen. The patient's baseline is usually 4 liters, so he is better than at his baseline. would like to have a nebulizer ordered for home treatment. PLAN: Discontinue IV Hep-Lock as it needs to be changed, there is no need for a new IV access. Discontinue MARTINEZ nebulizer. Please order the patient a nebulizer machine for home treatment and albuterol/Atrovent nebs. Infectious disease signing off. Thank you for consultation. FATIMAH
[2018-07-11 06:30] LABS: HEMATOCRIT 25.1 % (42.0-52.0); HEMOGLOBIN 8.1 g/dl (13.5-17.5); MEAN CORPUSCULAR HEMOGLOBIN 28.2 pg (27.0-33.0); MEAN CORPUSCULAR HGB CONC 32.3 g/dl (32.0-36.5); MEAN CORPUSCULAR VOLUME 87.5 fl (80.0-96.0); PLATELET COUNT, AUTOMATED 184 10^3/uL (150-450); RED BLOOD COUNT 2.87 10^6/uL (4.30-6.10); WHITE BLOOD COUNT 9.3 10^3/uL (4.0-10.0)
[2018-07-11 07:01] LABS: BLOOD UREA NITROGEN 13 MG/DL (7-18); CALCIUM LEVEL 7.4 MG/DL (8.8-10.2); CARBON DIOXIDE LEVEL 29 MEQ/L (21-32); CHLORIDE LEVEL 106 MEQ/L (98-107); CREATININE FOR GFR 0.91 MG/DL (0.70-1.30); GLOMERULAR FILTRATION RATE > 60.0 (>35); GLUCOSE, FASTING 77 MG/DL (70-100); POTASSIUM SERUM 4.2 MEQ/L (3.5-5.1); SODIUM LEVEL 139 MEQ/L (136-145)
[2018-07-11] MEDS: SYMBICORT 160/4.5MCG INHALER 6GM INH SCH (07:33)
[2018-07-11] MEDS: PANTOPRAZOLE 40MG TAB (PROTONIX) PO SCH (08:35)
[2018-07-11] MEDS: ENOXAPARIN 80 MG/0.8 ML SYRINGE (J1650) SC SCH (08:35)
[2018-07-11] MEDS: ASPIRIN 81 MG ENTERIC TAB PO SCH (08:35)
[2018-07-11] MEDS: LORATADINE 10 MG TAB PO SCH (08:35)
[2018-07-11] MEDS: MAGNESIUM OXIDE 400 MG TAB (MAG-OX) PO SCH (08:35)
[2018-07-11] MEDS: DOCUSATE SODIUM 100 MG CAP PO SCH (08:35)
[2018-07-11] MEDS: MELOXICAM (MOBIC) 7.5 MG TAB PO SCH (08:35)
--- NOTE | 2018-07-11 10:31 | IPNPDOC ---
Text Note Date of Service The patient was seen on 07/11/18. NOTE SUBJECTIVE: Pt examined at bedside. Breathing is stable and he is on less than his baseline 4L NC, down to 2L this am. No issues overnight or any complaints. Awaiting PT/OT. OBJECTIVE: VITAL SIGNS: Listed below. GENERAL: Alert and awake. Conversant. NAD, resting comfortably in bed HEENT: Normocephalic, atraumatic. EOMI, anicteric sclera CARDIOVASCULAR: irregular rhythm, reg rate, no audible murmurs LUNGS: Decreased breath sounds throughout. Rhonchi improving. Is on his baseline 4L NC ABDOMEN: Soft, nontender and nondistended EXTREMITIES: 2+ radial pulses b/l. No edema : Chronic Sam in place with yellow o/p LABORATORY DATA: Listed below. ASSESSMENT AND PLAN: --Pseudomonas Pneumonia * Overall improved. CRP stable. s/p 10-day course Levaquin 07/09. ID has disco ntinued Tobramycin and we will try to set pt up to obtain nebulizers in outpatient setting through social work. * Continues to be at or below his baseline 3-4L NC. Continue duoneb and symbicort. Continue with PT/OT --Anemia * H&H stable, around baseline 8-9. No overt bleed. No melena, hematuria, hem atochezia. No abdominal pain. * Transfuse as needed to maintain Hgb >8. Consent in chart --Symptomatic hypotension in setting of baseline HTN * resolved s/p Hydrocortisone. Will continue tapering down steroids to his baseline 5g po prednisone/day at baseline * BP are WNL with home lasix & lisinopril on hold. Continue Lopressor given controlled Afib. --Lung Nodule 2 nodular densities noted on 06/14 CT chest. Pt to f/u o/p, concern for possible malignancy. Discussed with pt and he relays understanding --Gross Hematuria resolved, likely 2/2 renal cysts vs trauma from chronic Sam. H&H & renal fxn stable. No abd pain or distension. Good urine o/p Per Urology-continue ASA & Lovenox s/p 14-day course Diflucan completed 06/25 --Penile Laceration Per Dr. Mancilla, o/p f/u for possible suprapubic catheter, nothing to do inpatient. Keep catheter up to the abdomen --Urinary tract infection 2/2 chronic indwelling Sam catheter. 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 Grade 1 diastolic dysfunction with mild LVH Lasix & Lisinopril on hold, vol status stable --Paroxysmal atrial fibrillation with hx of PE rate controlled on po lopressor after dosages adjusted from home dose of 50mg daily to 25mg q8h on Lovenox in lieu of his home edoxaban, which we do not carry on formulary --COPD on baseline, 4L NC. Maintain Oxygen sat between 88-92% and continue home nebs --Rheumatoid arthritis & Discoid Lupus [facility] Home methotrexate and Plaquenil & chronic 5mg prednisone on hold as he is being treated for active infections: PNA and UTI --BPH continue home Flomax --GERD continue po PPI --Dyslipidemia continue home statin and ASA DVT ppx: Lovenox sc DISPOSITION: pending PT/OT and authorization for o/p nebs. Possible d/c this week, home with services. VS,Hectorbone, I+O VS, Fishbone, I+O Laboratory Tests 07/11/18 06:20 Red Blood Count 2.87 L, Mean Corpuscular Volume 87.5, Mean Corpuscular Hemoglobin 28.2, Mean Corpuscular Hemoglobin Concent 32.3, Red Cell Distribution Width 17.7 H, Calcium Level 7.4 L Vital Signs Date Time Temp Pulse Resp B/P (MAP) Pulse Ox O2 Delivery O2 Flow Rate FiO2 07/11/18 08:35 2.0 07/11/18 06:00 90 143/62 07/11/18 05:55 98.7 18 97 07/08/18 17:00 Nasal Cannula I&O- Last 24 Hours up to 6 AM 07/11/18 06:00 Intake Total 920 ml Output Total 250 ml Balance 670 ml GME ATTESTATION GME ATTESTATION My faculty preceptor for this patient encounter was physically present during the encounter and was fully available. All aspects of the patient interview, examination, medical decision making process, and medical care plan development were reviewed and approved by the faculty preceptor. The faculty preceptor is aware and concurs with the plan as stated in the body of this note and will attest to such by his/her cosignature. DEEPAK GOMES DO Jul 11, 2018 10:31
[2018-07-11 14:10] VITALS: BP 124/56
[2018-07-11] MEDS ORDERED: IPRA0.00 NEB (14:12)
[2018-07-11 15:04] VITALS: BP 124/56
--- NOTE | 2018-07-13 17:42 | DS.PDOC ---
Discharge Summary General Date of Admission Jun 06, 2018 at 22:07 Date of Discharge 07/11/18 Attending Physician: HIGINIO CHAPMAN DO Specialist/Consultants Involve: Jason Lowery MD Discharge Summary PROCEDURES PERFORMED DURING STAY: [None]. ADMITTING DIAGNOSES: 1. . DISCHARGE DIAGNOSES: --Pseudomonas Pneumonia * Overall improved. CRP stable. s/p 10-day course Levaquin 07/09. ID has discontinued Tobramycin and we will try to set pt up to obtain nebulizers in outpatient setting through social work. * Continues to be at or below his baseline 3-4L NC. Continue duoneb and symbicort. Continue with PT/OT --Anemia * H&H stable, around baseline 8-9. No overt bleed. No melena, hematuria, hematochezia. No abdominal pain. * Transfuse as needed to maintain Hgb >8. Consent in chart --Symptomatic hypotension in setting of baseline HTN * resolved s/p Hydrocortisone. Will continue tapering down steroids to his baseline 5g po prednisone/day at baseline * BP are WNL with home lasix & lisinopril on hold. Continue Lopressor given controlled Afib. --Lung Nodule 2 nodular densities noted on 06/14 CT chest. Pt to f/u o/p, concern for possible malignancy. Discussed with pt and he relays understanding --Gross Hematuria resolved, likely 2/2 renal cysts vs trauma from chronic Sam. H&H & renal fxn stable. No abd pain or distension. Good urine o/p Per Urology-continue ASA & Lovenox s/p 14-day course Diflucan completed 06/25 --Penile Laceration Per Dr. Mancilla, o/p f/u for possible suprapubic catheter, nothing to do inpatient. Keep catheter up to the abdomen --Urinary tract infection 2/2 chronic indwelling Sam catheter. s/p 14 days of Diflucan for +yeast in urine-completed 06/25 --Systolic and diastolic dysfunction, EF 45-50% as of 06/07/18, and grade 1 diastolic dysfunction with mild LVH --Paroxysmal atrial fibrillation with hx of PE, chronically on edoxaban --COPD, 4L NC chronically --Rheumatoid arthritis --Discoid Lupus --BPH --GERD --Dyslipidemia COMPLICATIONS/CHIEF COMPLAINT: Gi Bleed/Near Syncope. HISTORY OF PRESENT ILLNESS: . HOSPITAL COURSE: . DISCHARGE MEDICATIONS: Please see below. ALLERGIES: Please see below. PHYSICAL EXAMINATION ON DISCHARGE: VITAL SIGNS: Please see below. GENERAL: Alert and awake. Conversant. NAD, resting comfortably in bed HEENT: Normocephalic, atraumatic. EOMI, anicteric sclera CARDIOVASCULAR: irregular rhythm, reg rate, no audible murmurs LUNGS: Decreased breath sounds throughout. Rhonchi improving. Is on his baseline 4L NC ABDOMEN: Soft, nontender and nondistended EXTREMITIES: 2+ radial pulses b/l. No edema : Chronic Sam in place with yellow o/p LABORATORY DATA: Please see below. IMAGING: PROGNOSIS: fair ACTIVITY: [As tolerated]. DIET: 2g sodium DISPOSITION: Home Health Service. DISCHARGE INSTRUCTIONS: 1. . DISCHARGE CONDITION: [Stable]. TIME SPENT ON DISCHARGE: Greater than 35 minutes. Vital Signs/I&Os Vital Signs Date Time Temp Pulse Resp B/P (MAP) Pulse Ox O2 Delivery O2 Flow Rate FiO2 07/11/18 15:04 89 124/56 07/11/18 14:10 97.5 20 93 2.0 07/08/18 17:00 Nasal Cannula Microbiology Microbiology 07/05/18 Blood Culture - Final, Complete NO GROWTH AFTER 5 DAYS 07/05/18 Blood Culture - Final, Complete NO GROWTH AFTER 5 DAYS 07/07/18 Gram Stain - Final, Complete 07/07/18 Sputum Culture - Final, Complete Yeast Like Organism 07/05/18 Respiratory Virus Panel (PCR) (CHANTELLE) - Final, Complete 07/05/18 Urine Culture - Final, Complete Discharge Medications Scheduled (Ensure Plus) 1 Liq Liq, 1 LIQ PO BID, (Reported) Aspirin (Aspirin EC) 81 Mg Tabec, 81 MG PO DAILY, (Reported) Atorvastatin Calcium (Atorvastatin Calcium) 10 Mg Tab, 5 MG PO QHS, (Reported) Budesonide/Formoterol (Symbicort 160-4.5 Mcg/Act) 60 Puff/Inhaler Aers, 2 PUFF INH BID, (Reported) Docusate Sodium (Docusate Sodium) 100 Mg Cap, 100 MG PO BID, (Reported) Edoxaban Tosylate Monohydrate (Savaysa) 60 Mg Tab, 60 MG PO DAILY, (Reported) Furosemide (Furosemide) 20 Mg Tab, 20 MG PO DAILY, (Reported) Hydroxychloroquine Sulfate (Hydroxychloroquine Sulfat) 200 Mg Tab, 200 MG PO BID, (Reported) Lisinopril (Lisinopril) 20 Mg Tab, 10 MG PO DAILY, (Reported) Loratadine (Loratadine) 10 Mg Tab, 10 MG PO DAILY, (Reported) Meloxicam (Meloxicam) 15 Mg Tab, 15 MG PO DAILY, (Reported) Methotrexate (Methotrexate) 2.5 Mg Tab, 12.5 MG PO 1XWK, (Reported) TAKES ON SATURDAYS AT DINNERTIME Metoprolol Succinate (Metoprolol Succinate ER) 50 Mg Tab, 25 MG PO DAILY, (Reported) Omeprazole (Omeprazole) 20 Mg Cap, 20 MG PO DAILY, (Reported) Prednisone (Prednisone) 5 Mg Tab, 5 MG PO DAILY, (Reported) Tamsulosin Hydrochloride (Flomax) 0.4 Mg Cap, 0.4 MG PO QHS, (Reported) Tiotropium [place] Monohydrate (Spiriva Handihaler) 18 Mcg Cap, 18 MCG INH DAILY, (Reported) Scheduled PRN Albuterol Sulfate (Ventolin Hfa) 108 Mcg/Act Aer, 2 PUFFS INH Q4H PRN for SHORTNESS OF BREATH, (Reported) Albuterol/Ipratropium (Ipratropium [place]/Albut 0.5-2.5 (3) mg/3Ml) 1 Thuy Thuy, 1 VIAL NEB Q6HP PRN for WHEEZING Guaifenesin (Guaifenesin) 200 Mg Tab, 200 MG PO Q4H PRN for COUGH, (Reported) Allergies Coded Allergies: No Known Allergies (Unverified , 06/06/18) GME ATTESTATION GME ATTESTATION My faculty preceptor for this patient encounter was physically present during the encounter and was fully available. All aspects of the patient interview, examination, medical decision making process, and medical care plan development were reviewed and approved by the faculty preceptor. The faculty preceptor is aware and concurs with the plan as stated in the body of this note and will attest to such by his/her cosignature. DEEPAK GOMES DO Jul 13, 2018 17:42
== END 2018-07-11 16:50 | disposition home health service (06) | DRG 698 ==
LOC: EDBD 17:55 → M ED 17:55 → M ED INP 22:07 → M PCU 06-07 01:36 → M MSPAV 06-22 17:15 → M MS5PR 07-02 23:04 → M PCU 07-05 12:38 → M MS4PR 07-08 17:55
PROVIDERS: ADMIT Internal Medicine; ATTEND Internal Medicine
PROC: 0DJD8ZZ Inspection of Lower Intestinal Tract, Via Natural or Artificial Opening Endoscopic (ICD-10-PCS; 2018-06-08)
PROC: 0DB48ZX Excision of Esophagogastric Junction, Via Natural or Artificial Opening Endoscopic, Diagnostic (ICD-10-PCS; principal; 2018-06-08 13:45)
PROC: 30233N1 Transfusion of Nonautologous Red Blood Cells into Peripheral Vein, Percutaneous Approach (ICD-10-PCS; 2018-07-09)
DX: T83.511A Infection and inflammatory reaction due to indwelling urethral catheter, initial encounter (principal); J15.1 Pneumonia due to Pseudomonas; E87.1 Hypo-osmolality and hyponatremia; Y84.6 Urinary catheterization as the cause of abnormal reaction of the patient, or of later complication, without mention of misadventure at the time of the procedure; I10 Essential (primary) hypertension; E78.5 Hyperlipidemia, unspecified; J44.9 Chronic obstructive pulmonary disease, unspecified; K21.9 Gastro-esophageal reflux disease without esophagitis; M06.9 Rheumatoid arthritis, unspecified; I51.89 Other ill-defined heart diseases; K22.2 Esophageal obstruction; L93.0 Discoid lupus erythematosus; K57.30 Diverticulosis of large intestine without perforation or abscess without bleeding; D64.9 Anemia, unspecified; K64.8 Other hemorrhoids; I48.0 Paroxysmal atrial fibrillation; R91.1 Solitary pulmonary nodule; R55 Syncope and collapse; N40.0 Benign prostatic hyperplasia without lower urinary tract symptoms; Z79.01 Long term (current) use of anticoagulants; Z79.82 Long term (current) use of aspirin; Z79.899 Other long term (current) drug therapy; Z86.711 Personal history of pulmonary embolism; Z99.81 Dependence on supplemental oxygen